=== PATIENT | male | born 1945 | race Caucasian/White ===

== ENCOUNTER → 2020-03-03 | Day surgery (SDC) | payer OTHER, MEDICARE, BC ==
[~2020-03-03] MED LIST: Lactated Ringers 1,000 ML IV SCH; Lidocaine 1% 4 ML ONE; Lidocaine 1%/Sod Bicarbonate in NS 8.4% 1 ML Syringe IDERM PRN; Propofol 200 MG/20 ML SDV ONE; Sodium Chloride 0.9% 10 ML Syringe FLUSH PRN
--- NOTE | 2020-03-03 08:59 | PCM.PREANE ---
Preanesthetic Assessment - Procedure Proposed Procedure: Screening Colonoscopy - Anesthesia/Transfusion/Family Hx Anesthesia History: Prior Anesthesia Without Reaction Family History of Anesthesia Reaction: No Transfusion History: Unknown (? 1967) - Review of Systems General: No Symptoms Pulmonary: No Symptoms Cardiovascular: No Symptoms Gastrointestinal: No Symptoms Neurological: No Symptoms Other: Reports: Neck Pain ("on left stiff") - Physical Assessment NPO Status Date: 03/02/20 NPO Status Time: 00:00 Height: 1.85 m Weight: 85.6 kg ASA Class: 2 Mental Status: Alert & Oriented x3 Airway Class: Mallampati = 1 Dentition: Reports: [place](s) Thyro-Mental Finger Breadths: 3 Mouth Opening Finger Breadths: 3 ROM/Head Extension: Full Lungs: Clear to Auscultation, Normal Respiratory Effort Cardiovascular: Regular Rate, Regular Rhythm - Allergies Allergies/Adverse Reactions: Allergies Allergy/AdvReac Type Severity Reaction Status Date / Time No Known Allergies Allergy Verified 03/02/20 14:09 - Blood Blood Available: No Product(s) Available: None - Anesthesia Plan Pre-Op Medication Ordered: None - Acknowledgements Anesthesia Type Planned: MAC Pt an Appropriate Candidate for the Planned Anesthesia: Yes Alternatives and Risks of Anesthesia Discussed w Pt/Guardian: Yes Pt/Guardian Understands and Agrees with Anesthesia Plan: Yes PreAnesthesia Questionnaire HEENT History: Reports: Allergic Rhinitis, Hard of Hearing, Otitis Media, Other (See Below) Other HEENT History: tinnitis Cardiovascular History: Reports: Hypertension, Other (See Below) Other Cardiovascular History: bradycardia, abnormal heart sounds Respiratory History: Reports: Other (See Below) Other Respiratory History: bronchitis, cough Gastrointestinal History: Reports: GERD Genitourinary History: Reports: Prostate Disorder [employer] EX[employer]IVE History: Reports: None Musculoskeletal History: Reports: Back Pain, Chronic, Gout Neurological History: Reports: None Psychiatric History: Reports: None Endocrine/Metabolic History: Reports: None, Diabetes, Type II Hematologic History: Reports: None Immunologic History: Reports: None Oncologic (Cancer) History: Reports: None Dermatologic History: Reports: None - Infectious Disease History Infectious Disease History: Reports: None - Past Surgical History Head Surgeries/Procedures: Reports: None Cardiovascular Surgical History: Reports: None Respiratory Surgical History: Reports: None Female Surgical History: Reports: None Male Surgical History: Reports: None Endocrine Surgical History: Reports: None Neurological Surgical History: Reports: None Musculoskeletal Surgical History: Reports: Knee Replacement, Shoulder Surgery Oncologic Surgical History: Reports: None Dermatological Surgical History: Reports: None - SUBSTANCE USE Tobacco Use Status *Q: Never Tobacco User Tobacco Use Within Last Twelve Months: No Second Hand Smoke Exposure: No Days Per Week of Alcohol Use: 0 Number of Drinks Per Day: 0 Total Drinks Per Week: 0 Recreational Drug Use History: No - HOME MEDS Home Medications: Home Meds Cholecalciferol (Vitamin D3) [Vitamin D3] 1,000 mg PO DAILY 12/28/17 [History] Fish Oil/[place]-3 Fatty Acids [Fish Oil 1,000 MG] 1,000 mg PO DAILY 12/28/17 [History] Ibuprofen [Motrin] 600 mg PO DAILY 12/28/17 [History] Multivitamin [Multivitamins] 1 tab PO DAILY 12/28/17 [History] Omeprazole Magnesium [Prilosec Otc] 20 mg PO DAILY 12/28/17 [History] Tamsulosin HCl 0.4 mg PO DAILY 12/28/17 [History] metFORMIN [Glucophage XR] 500 mg PO BID 12/28/17 [History] Allopurinol [Zyloprim] 150 mg PO DAILY 03/02/20 [History] Finasteride [Proscar] 5 mg PO DAILY 03/02/20 [History] Saw [place] Fruit [Saw [place]] 1,350 mg PO DAILY 03/02/20 [History] amLODIPine [Norvasc] 5 mg PO DAILY 03/02/20 [History] - CURRENT (IN HOUSE) MEDS Current Meds: Current Medications Lactated Ringer's (Ringers, Lactated) 1,000 mls @ 125 mls/hr IV ASDIRECTED VANDANA Stop: 03/03/20 23:00 Lidocaine/Sodium Bicarbonate (Buffered Lidocaine 1% In Ns 8.4%) 0.25 ml IDERM ONETIME PRN PRN Reason: Prior to IV Start Stop: 03/03/20 18:00 Sodium Chloride (Saline Flush) 10 ml FLUSH ASDIRECTED PRN PRN Reason: Keep Vein Open Stop: 03/03/20 18:00
--- NOTE | 2020-03-03 10:19 | PCM48HPAN ---
Post Anesthesia Note - EVALUATION WITHIN 48HRS OF ANESTHETIC Vital Signs in Normal Range: Yes Patient Participated in Evaluation: Yes Respiratory Function Stable: Yes Airway Patent: Yes Cardiovascular Function Stable: Yes Hydration Status Stable: Yes Pain Control Satisfactory: Yes Nausea and Vomiting Control Satisfactory: Yes Mental Status Recovered: Yes Vital Signs: Last Vital Signs Temp 36.4 C 03/03/20 08:45 Pulse 80 03/03/20 08:45 Resp 18 03/03/20 08:45 BP 140/83 03/03/20 08:45 Pulse Ox 93 L 03/03/20 08:45
--- NOTE | 2020-03-03 10:47 | PCM.PRNOTE ---
- Free Text/Narrative Note: Date: 03/03/2020 Procedure: screening colonoscopy Endoscopist: See Deshpande MD Findings: good prep. Small subcentimeter inflamed polyp near hepatic flexure. Hemorrhoids. Detailed Report: The patient was taken to the endoscopy suite and placed in left lateral decubitus position. Timeout was performed, and monitored anesthesia care was initiated. Inspection of the anus revealed no gross abnormality. Digital rectal exam was unremarkable, the prostate felt somewhat enlarged but otherwise normal. The colonoscope was inserted and advanced all the way to the cecum. The appendiceal orifice and ileocecal valve were visualized. Prep was good. The scope was slowly withdrawn and mucosal surfaces carefully inspected. At what appeared to be the hepatic flexure, there was a small subcentimeter benign- appearing polyp with surrounding inflamed mucosa, which I suspect is related to trauma from the scope at this turn. Biopsy forceps were used to remove the polyp, and the base and surrounding tissue were fulgurated. No additional polyps were identified. On retroflexion of the scope within the rectum, internal hemorrhoidal disease was appreciated. Air was suctioned from the distal colon and rectum prior to withdrawal of the scope. The patient tolerated the procedure well.
== END | disposition home or self-care (01) ==
LOC: JD.SDS 08:10
PROVIDERS: ATTEND Surgery
DX: Z12.11 Encounter for screening for malignant neoplasm of colon (principal); K51.40 Inflammatory polyps of colon without complications; K64.8 Other hemorrhoids; I10 Essential (primary) hypertension; N40.0 Benign prostatic hyperplasia without lower urinary tract symptoms; E11.9 Type 2 diabetes mellitus without complications; Z91.02 Food additives allergy status; Z79.899 Other long term (current) drug therapy; Z98.890 Other specified postprocedural states; Z87.891 Personal history of nicotine dependence; Z79.84 Long term (current) use of oral hypoglycemic drugs
CPT/HCPCS: 45380; 82962; J2001; J2704; J7120; 00812; 88305

== ENCOUNTER 2020-11-15 14:24 | Inpatient (IN) | payer OTHER, MEDICARE, BC ==
[2020-11-15] MEDS ORDERED: Sodium Chloride 0.9% 10 ML Syringe FLUSH PRN (15:18)
--- NOTE | 2020-11-15 15:58 | CR ---
Chest: Portable view of the chest was obtained. Comparison: Prior chest x-ray of 12/27/17. Heart size is within normal limits. Mild tortuosity of the thoracic aorta is seen. Slight parenchymal density is noted along the lateral left side of the chest. Right lung is felt to be fairly clear. Bony structure shows nothing acute. Impression: 1. Slight patchy density along the lateral left side of the chest possibly due to mild COVID pneumonia. 2. No other acute abnormality is seen. Diagnostic code #3
--- NOTE | 2020-11-15 16:44 | EDM.PDOC ---
ED HPI GENERAL MEDICAL PROBLEM - General Chief Complaint: Respiratory Problem Stated Complaint: COVID+ Time Seen by Provider: 11/15/20 15:18 Source of Information: Reports: Patient, RN Notes Reviewed History Limitations: Reports: No Limitations - History of Present Illness INITIAL COMMENTS - FREE TEXT/NARRATIVE: Patient is a 75-year-old male presenting to the emergency department with complaints of worsening of Covid symptoms. Reported he began feeling ill on Saturday of last week which would put him approximately 8 days into his illness. He reports cough, body aches, and fevers. He has had some nausea and vomiting but denies any diarrhea. He was seen by his primary care provider in the [facility] yesterday and had blood work completed. He was found to have a low white blood cells and elevated liver enzymes but blood work was otherwise normal. Reports his oxygen saturations were in the low 90s. He comes to the ER today reporting low oxygen saturations at home. On arrival to ER, he was 84% on room air. He denies any chest pain but does complain of shortness of breath. Denies any underlying chronic medical conditions. He has been taken Tylenol and ibupr ofen for his fevers and discomfort. Last dose of Tylenol was around 5 AM this morning. Last dose of ibuprofen, 200 mg, was at 8 AM this morning. He is complaining of generalized body aches and low back pain at this time. He was not vaccinated for Covid Generalized Pain Score (Numeric/FACES): 7 - Related Data Allergies Allergy/AdvReac Type Severity Reaction Status Date / Time No Known Allergies Allergy Verified 11/15/20 15:02 Home Meds: Home Meds Cholecalciferol (Vitamin D3) [Vitamin D3] 1,000 mg PO DAILY 12/28/17 [History] Fish Oil/[place]-3 Fatty Acids [Fish Oil 1,000 MG] 1,000 mg PO DAILY 12/28/17 [History] Ibuprofen [Motrin] 600 mg PO TID 12/28/17 [History] Multivitamin [Multivitamins] 1 tab PO DAILY 12/28/17 [History] Omeprazole Magnesium [Prilosec Otc] 20 mg PO DAILY 12/28/17 [History] Tamsulosin HCl 0.4 mg PO DAILY 12/28/17 [History] Allopurinol [Zyloprim] 150 mg PO DAILY 03/02/20 [History] Finasteride [Proscar] 5 mg PO DAILY 03/02/20 [History] amLODIPine [Norvasc] 5 mg PO DAILY 03/02/20 [History] Chondroitin/Glucosamine [Glucosamine-Chondroitin] 1 cap PO DAILY 11/16/20 [History] Propylene Glycol/PEG 400/Pf [Systane Hydration Pf 0.4-0.3%] 2 drop EYEBOTH ASDIRECTED PRN 11/16/20 [History] metFORMIN HCl [Metformin HCl] 500 mg PO BID 11/16/20 [History] Past Medical History HEENT History: Reports: Allergic Rhinitis, Hard of Hearing, Otitis Media, Other (See Below) Other HEENT History: tinnitis Cardiovascular History: Reports: Hypertension Other Cardiovascular History: bradycardia, abnormal heart sounds Respiratory History: Reports: Other (See Below) Other Respiratory History: bronchitis, cough Gastrointestinal History: Reports: GERD Genitourinary History: Reports: Prostate Disorder [employer] History: Reports: None Musculoskeletal History: Reports: Gout Neurological History: Reports: None Psychiatric History: Reports: None Endocrine/Metabolic History: Reports: Diabetes, Type II Hematologic History: Reports: None Immunologic History: Reports: None Oncologic (Cancer) History: Reports: None Dermatologic History: Reports: None - Infectious Disease History Infectious Disease History: Reports: Novel Coronavirus - Past Surgical History Musculoskeletal Surgical History: Reports: Shoulder Surgery Social & Family History - Tobacco Use Tobacco Use Status *Q: Never Tobacco User - Caffeine Use Caffeine Use: Reports: None - Recreational Drug Use Recreational Drug Use: No ED ROS GENERAL - Review of Systems Review Of Systems: Comprehensive ROS is negative, except as noted in HPI. ED EXAM, GENERAL - Physical Exam Exam: See Below Exam Limited By: No Limitations General Appearance: Alert, WD/WN, No Apparent Distress Respiratory/Chest: No Respiratory Distress, No Accessory Muscle Use, Chest Non- Tender, Other (Faint crackles to bilateral bases.) Cardiovascular: Normal Peripheral Pulses, Regular Rate, Rhythm, No Edema, No Gallop, No JVD, No Murmur, No Rub GI/Abdominal: Normal Bowel Sounds, Soft, Non-Tender, No Organomegaly, No Distention, No Abnormal Bruit, No Mass Neurological: Alert, Oriented, CN II-XII Intact, Normal Cognition, Normal Gait, Normal Reflexes, No Motor/Sensory Deficits Psychiatric: Normal Affect, Normal Mood Skin Exam: Warm, Dry, Intact, Normal Color, No Rash #1 Interpretation EKG Date: 11/15/20 Time: 15:40 Rhythm: NSR (76) Rate (Beats/Min): 76 [place]: Normal P-Wave: Present QRS: Normal ST-T: Normal QT: Normal EKG Interpretation Comments: frequent PACs Q wave lead III no ST changes EKG interpreted by Dr. Izaiah MD Course - Vital Signs Last Recorded V/S: Last Vital Signs Temp 97.7 F 11/16/20 16:56 Pulse 71 11/16/20 16:56 Resp 18 11/16/20 18:02 BP 129/78 11/16/20 16:56 Pulse Ox 91 L 11/16/20 16:56 - Orders/Labs/Meds Orders: Medication Orders Acetaminophen (Acetaminophen 325 Mg Tab) 650 mg PO Q4H PRN PRN Reason: Pain (Mild 1-3)/fever Last Admin: 11/16/20 08:53 Dose: 650 mg Documented by: Admin: 11/15/20 20:23 Dose: 650 mg Documented by: BILL Albuterol (Albuterol 6.7 Gm Inhaler) 0 gm INH Q2H PRN PRN Reason: SOB/Wheezing Albuterol/Ipratropium (Albuterol/Ipratropium 3.0-0.5 Mg/3 Ml Neb Soln) 3 ml NEB QIDRT PRN PRN Reason: Shortness Of Breath/wheezing Allopurinol (Allopurinol 300 Mg Tab) 150 mg PO DAILY [facility] Last Admin: 11/16/20 08:52 Dose: 150 mg Documented by: RONNA Amlodipine Besylate (Amlodipine 5 Mg Tab) 5 mg PO DAILY [facility] Last Admin: 11/16/20 08:50 Dose: 5 mg Documented by: RONNA Cholecalciferol (Cholecalciferol (Vitamin D3) 25 Mcg Tab) 25 mcg PO DAILY [facility] Last Admin: 11/16/20 08:54 Dose: 25 mcg Documented by: RONNA Dexamethasone (Dexamethasone 4 Mg Tab) 6 mg PO DAILY [facility] Stop: 11/24/20 09:01 Last Admin: 11/16/20 08:49 Dose: 6 mg Documented by: RONNA Docusate Sodium (Docusate Sodium 100 Mg Cap) 100 mg PO Q12H PRN PRN Reason: Constipation Famotidine (Famotidine 20 Mg Tab) 20 mg PO DAILY [facility] Last Admin: 11/16/20 08:54 Dose: 20 mg Documented by: RONNA Finasteride (Finasteride 5 Mg Tab) 5 mg PO DAILY [facility] Last Admin: 11/16/20 08:54 Dose: 5 mg Documented by: RONNA Guaifenesin (Guaifenesin 600 Mg Tab.Er) 600 mg PO BID [facility] Last Admin: 11/16/20 08:52 Dose: 600 mg Documented by: Admin: 11/15/20 20:21 Dose: 600 mg Documented by: BILL Heparin Sodium (Porcine) (Heparin Sodium 5,000 Units/Ml Vial) 7,500 units SUBCUT Q8H [facility] Last Admin: 11/16/20 17:19 Dose: 7,500 units Documented by: Admin: 11/16/20 08:54 Dose: 7,500 units Documented by: Admin: 11/16/20 00:44 Dose: 7,500 units Documented by: Admin: 11/15/20 19:15 Dose: 7,500 units Documented by: KULWINDER Hydralazine HCl (Hydralazine 20 Mg/Ml Sdv) 10 mg IVPUSH Q4H PRN PRN Reason: Hypertension Remdesivir 100 mg/ Sodium (Chloride) 100 mls @ 100 mls/hr IV Q24H [facility] Stop: 11/19/20 21:59 Insulin Human Lispro (Insulin Lispro 100 Unit/Ml 10 Ml Vial) 0 unit SUBCUT QIDACANDBED [facility]; Protocol Last Admin: 11/16/20 17:20 Dose: 4 unit Documented by: Admin: 11/16/20 11:50 Dose: 2 unit Documented by: Admin: 11/16/20 08:48 Dose: 1 unit Documented by: Admin: 11/15/20 21:14 Dose: Not Given Documented by: BILL Ondansetron HCl (Ondansetron 4 Mg Tab.Dis) 4 mg PO Q4H PRN PRN Reason: nausea, able to take PO Sodium Chloride (Sodium Chloride 0.9% 10 Ml Syringe) 10 ml FLUSH ASDIRECTED PRN PRN Reason: Keep Vein Open Last Admin: 11/15/20 17:05 Dose: 10 ml Documented by: PAUL Tamsulosin HCl (Tamsulosin 0.4 Mg Cap.Er) 0.4 mg PO DAILY [facility] Last Admin: 11/16/20 08:52 Dose: 0.4 mg Documented by: RONNA Temazepam (Temazepam 7.5 Mg Cap) 7.5 mg PO BEDTIME PRN PRN Reason: Sleep Labs: Laboratory Tests 11/15/20 11/15/20 11/15/20 Range/Units 15:55 15:55 15:55 WBC 2.66 L (4.23-9.07) K/mm3 RBC 5.11 (4.63-6.08) M/mm3 Hgb 15.1 (13.7-17.5) gm/dl Hct 44.2 (40.1-51.0) % MCV 86.5 (79.0-92.2) fl MCH 29.5 (25.7-32.2) pg MCHC 34.2 (32.2-35.5) g/dl RDW Std Deviation 37.6 (35.1-43.9) fL Plt Count 101 L (163-337) K/mm3 MPV 10.2 (9.4-12.3) fl Neut % (Auto) 66.9 (34.0-67.9) % Lymph % (Auto) 24.1 (21.8-53.1) % [place] % (Auto) 8.6 (5.3-12.2) % Eos % (Auto) 0 L (0.8-7.0) Baso % (Auto) 0.4 (0.1-1.2) % Neut # (Auto) 1.78 (1.78-5.38) K/mm3 Lymph # (Auto) 0.64 L (1.32-3.57) K/mm3 [place] # (Auto) 0.23 L (0.30-0.82) K/mm3 Eos # (Auto) 0.00 L (0.04-0.54) K/mm3 Baso # (Auto) 0.01 (0.01-0.08) K/mm3 D-Dimer, Quantitative 0.61 H (0.19-0.50) mg/L Sodium 137 (136-145) mEq/L Potassium 3.9 (3.5-5.1) mEq/L Chloride 98 (98-107) mEq/L Carbon Dioxide 31 (21-32) mEq/L Anion Gap 11.9 (5-15) BUN 29 H (7-18) mg/dL Creatinine 1.1 (0.7-1.3) mg/dL Est Cr Clr Drug Dosing 64.57 mL/min Estimated GFR (MDRD) > 60 (>60) mL/min BUN/Creatinine Ratio 26.4 H (14-18) Glucose 110 H (70-99) mg/dL Calcium 8.6 (8.5-10.1) mg/dL Total Bilirubin 0.7 (0.2-1.0) mg/dL AST 71 H (15-37) U/L ALT 65 H (16-63) U/L Alkaline Phosphatase 39 L (46-116) U/L Troponin I < 0.017 (0.00-0.056) ng/mL C-Reactive Protein 5.1 H* (<1.0) mg/dL NT-Pro-B Natriuret Pep (0-450) pg/mL Total Protein 7.0 (6.4-8.2) g/dl Albumin 3.3 L (3.4-5.0) g/dl Globulin 3.7 gm/dL Albumin/Globulin Ratio 0.9 L (1-2) Procalcitonin ng/mL 11/15/20 11/15/20 Range/Units 15:55 15:55 WBC (4.23-9.07) K/mm3 RBC (4.63-6.08) M/mm3 Hgb (13.7-17.5) gm/dl Hct (40.1-51.0) % MCV (79.0-92.2) fl MCH (25.7-32.2) pg MCHC (32.2-35.5) g/dl RDW Std Deviation (35.1-43.9) fL Plt Count (163-337) K/mm3 MPV (9.4-12.3) fl Neut % (Auto) (34.0-67.9) % Lymph % (Auto) (21.8-53.1) % [place] % (Auto) (5.3-12.2) % Eos % (Auto) (0.8-7.0) Baso % (Auto) (0.1-1.2) % Neut # (Auto) (1.78-5.38) K/mm3 Lymph # (Auto) (1.32-3.57) K/mm3 [place] # (Auto) (0.30-0.82) K/mm3 Eos # (Auto) (0.04-0.54) K/mm3 Baso # (Auto) (0.01-0.08) K/mm3 D-Dimer, Quantitative (0.19-0.50) mg/L Sodium (136-145) mEq/L Potassium (3.5-5.1) mEq/L Chloride (98-107) mEq/L Carbon Dioxide (21-32) mEq/L Anion Gap (5-15) BUN (7-18) mg/dL Creatinine (0.7-1.3) mg/dL Est Cr Clr Drug Dosing mL/min Estimated GFR (MDRD) (>60) mL/min BUN/Creatinine Ratio (14-18) Glucose (70-99) mg/dL Calcium (8.5-10.1) mg/dL Total Bilirubin (0.2-1.0) mg/dL AST (15-37) U/L ALT (16-63) U/L Alkaline Phosphatase (46-116) U/L Troponin I (0.00-0.056) ng/mL C-Reactive Protein (<1.0) mg/dL NT-Pro-B Natriuret Pep 27 (0-450) pg/mL Total Protein (6.4-8.2) g/dl Albumin (3.4-5.0) g/dl Globulin gm/dL Albumin/Globulin Ratio (1-2) Procalcitonin 0.19 H ng/mL Meds: Medications Generic Name Dose Route Start Last Admin Trade Name Freq PRN Reason Stop Dose Admin Acetaminophen 650 mg 11/15/20 17:17 11/16/20 08:53 Acetaminophen 325 Mg Tab PO 650 mg Q4H PRN Administration Pain (Mild 1-3)/fever Albuterol 0 gm 11/16/20 11:25 Albuterol 6.7 Gm Inhaler INH Q2H PRN SOB/Wheezing Albuterol/Ipratropium 3 ml 11/15/20 17:17 Albuterol/Ipratropium 3.0-0.5 Mg/3 Ml Neb Soln NEB QIDRT PRN Shortness Of Breath/wheezing Allopurinol 150 mg 11/16/20 09:00 11/16/20 08:52 Allopurinol 300 Mg Tab PO 150 mg DAILY VANDANA Administration Amlodipine Besylate 5 mg 11/16/20 09:00 11/16/20 08:50 Amlodipine 5 Mg Tab PO 5 mg DAILY VANDANA Administration Cholecalciferol 25 mcg 11/16/20 09:00 11/16/20 08:54 Cholecalciferol (Vitamin D3) 25 Mcg Tab PO 25 mcg DAILY VANDANA Administration Dexamethasone 6 mg 11/16/20 09:00 11/16/20 08:49 Dexamethasone 4 Mg Tab PO 11/24/20 09:01 6 mg DAILY [facility] Administration Docusate Sodium 100 mg 11/15/20 17:17 Docusate Sodium 100 Mg Cap PO Q12H PRN Constipation Famotidine 20 mg 11/16/20 09:00 11/16/20 08:54 Famotidine 20 Mg Tab PO 20 mg DAILY VANDANA Administration Finasteride 5 mg 11/16/20 09:00 11/16/20 08:54 Finasteride 5 Mg Tab PO 5 mg DAILY [facility] Administration Guaifenesin 600 mg 11/15/20 21:00 11/16/20 08:52 Guaifenesin 600 Mg Tab.Er PO 600 mg BID [facility] Administration Heparin Sodium (Porcine) 7,500 units 11/15/20 17:30 11/16/20 17:19 Heparin Sodium 5,000 Units/Ml Vial SUBCUT 7,500 units Q8H [facility] Administration Hydralazine HCl 10 mg 11/15/20 17:34 Hydralazine 20 Mg/Ml Sdv IVPUSH Q4H PRN Hypertension Remdesivir 100 mg/ Sodium 100 mls @ 100 mls/hr 11/16/20 21:00 Chloride IV 11/19/20 21:59 Q24H [facility] Insulin Human Lispro 0 unit 11/15/20 22:00 11/16/20 17:20 Insulin Lispro 100 Unit/Ml 10 Ml Vial SUBCUT 4 unit QIDACANDBED [facility] Administration Protocol Ondansetron HCl 4 mg 11/15/20 17:17 Ondansetron 4 Mg Tab.Dis PO Q4H PRN nausea, able to take PO Sodium Chloride 10 ml 11/15/20 15:18 11/15/20 17:05 Sodium Chloride 0.9% 10 Ml Syringe FLUSH 10 ml ASDIRECTED PRN Administration Keep Vein Open Tamsulosin HCl 0.4 mg 11/16/20 09:00 11/16/20 08:52 Tamsulosin 0.4 Mg Cap.Er PO 0.4 mg DAILY VANDANA Administration Temazepam 7.5 mg 11/15/20 17:17 Temazepam 7.5 Mg Cap PO BEDTIME PRN Sleep Discontinued Medications Generic Name Dose Route Start Last Admin Trade Name Freq PRN Reason Stop Dose Admin Dexamethasone 6 mg 11/15/20 16:46 11/15/20 17:06 Dexamethasone 4 Mg Tab PO 11/15/20 16:47 6 mg ONETIME ONE Administration Dexamethasone 6 mg 11/16/20 09:00 Dexamethasone 10 Mg/Ml Sdv IVPUSH 11/25/20 09:01 DAILY VANDANA Enoxaparin Sodium 40 mg 11/16/20 11:30 Enoxaparin 40 Mg/0.4 Ml Syringe SUBCUT DAILY VANDANA Remdesivir 200 mg/ Sodium 250 mls @ 250 mls/hr 11/15/20 17:17 11/15/20 20:21 Chloride IV 11/15/20 17:18 250 mls/hr ONETIME ONE Administration Remdesivir 100 mg/ Sodium 100 mls @ 100 mls/hr 11/17/20 17:30 Chloride IV 11/20/20 18:29 Q24H VANDANA Remdesivir 200 mg/ Sodium 250 mls @ 250 mls/hr 11/15/20 21:00 11/15/20 20:38 Chloride IV 11/15/20 21:59 Not Given ONETIME ONE Ketorolac Tromethamine 30 mg 11/15/20 16:47 11/15/20 17:06 Ketorolac 30 Mg/Ml Sdv IVPUSH 11/15/20 16:48 30 mg ONETIME ONE Administration Metformin HCl 500 mg 11/15/20 21:00 11/16/20 08:52 Metformin 500 Mg Tab PO 500 mg BID VANDANA Administration - Re-Assessments/Exams Free Text/Narrative Re-Assessment/Exam: Patient is a 75-year-old male presenting to the emergency department with complaints of worsening Covid symptoms. He is on approximately day 8 of his illness. They have been monitoring his oxygen at home and his oxygen saturations were found to be low. He complains of body aches, low back pain, cough, shortness of breath, and vomiting. He has not received any form of treatment thus far. On exam, he does have fine crackles to bilateral bases. Exam is otherwise unremarkable. Oxygen saturation on arrival to ER was 84% on room air. He is currently on 3 L of oxygen saturating in the mid 80s. I have ordered blood work, EKG, chest x-ray. He will be given dexamethasone 6 mg p.o. as well as Toradol 30 mg IV. 11/15/20 17:06 Hematology significant for WBC low at 2.66. D-dimer elevated 0.61, however when converted for age this is normal. BUN 29, AST 71, ALT 65, alkaline phosphatase 39, CRP 5.1. Troponin is undetectably low. EKG shows no evidence of acute ischemia. Chest x-ray shows mild Covid pneumonia. Patient is saturating in the mid to upper 90s on 3 L of oxygen by nasal cannula. Case was discussed with hospitalist, Dr. Singh. She has accepted the patient for admission. Departure - Departure Time of Disposition: 17:07 Disposition: Admitted As Inpatient 65 Condition: Good Clinical Impression: Pneumonia due to COVID-19 virus, Hypoxia - Discharge Information Sepsis Event Note (ED) - Evaluation Sepsis Screening Result: No Definite Risk
[2020-11-15] MEDS ORDERED: Dexamethasone 4 MG Tab PO ONE (16:46)
[2020-11-15] MEDS ORDERED: Ketorolac 30 MG/ML SDV IVPUSH ONE (16:47)
[2020-11-15] MEDS ORDERED: REMDESIVIR 200 MG in Sodium Chloride 0.9% 250 ML IV ONE ×2 (17:17→21:00)
[2020-11-15] MEDS ORDERED: Temazepam 7.5 MG Cap PO PRN (17:17)
[2020-11-15] MEDS ORDERED: Ondansetron 4 MG Tab.DIS PO PRN (17:17)
[2020-11-15] MEDS ORDERED: Docusate Sodium 100 MG Cap PO PRN (17:17)
[2020-11-15] MEDS ORDERED: Albuterol/Ipratropium 3.0-0.5 MG/3 ML Neb Soln NEB PRN (17:17)
--- NOTE | 2020-11-15 17:30 | PCM.HP.2 ---
H&P History of Present Illness - General Date of Service: 11/15/20 Admit Problem/Dx: Admission Diagnosis/Problem Admission Diagnosis/Problem covid Pneumonia Source of Information: Patient History Limitations: Reports: No Limitations - History of Present Illness Onset of Symptoms: Reports: Gradual Symptom Onset Date: 11/08/20 Duration of Symptoms: Reports: Day(s): Location: Reports: Chest Quality: Reports: Ache Improves with: Reports: None Worsens with: Reports: None Context: Reports: Sick Contact, Activity/Exercise, Exertion Associated Symptoms: Reports: Cough, Fever/Chills, Nausea/Vomiting, Shortness of Breath, Weakness Generalized Pain Score (Numeric/FACES): 7 - Related Data Allergies/Adverse Reactions: Allergies Allergy/AdvReac Type Severity Reaction Status Date / Time No Known Allergies Allergy Verified 11/15/20 15:02 Home Medications: Home Meds Cholecalciferol (Vitamin D3) [Vitamin D3] 1,000 mg PO DAILY 12/28/17 [History] Fish Oil/[place]-3 Fatty Acids [Fish Oil 1,000 MG] 1,000 mg PO DAILY 12/28/17 [History] Ibuprofen [Motrin] 600 mg PO DAILY 12/28/17 [History] Multivitamin [Multivitamins] 1 tab PO DAILY 12/28/17 [History] Omeprazole Magnesium [Prilosec Otc] 20 mg PO DAILY 12/28/17 [History] Tamsulosin HCl 0.4 mg PO DAILY 12/28/17 [History] metFORMIN [Glucophage XR] 500 mg PO BID 12/28/17 [History] Allopurinol [Zyloprim] 150 mg PO DAILY 03/02/20 [History] Finasteride [Proscar] 5 mg PO DAILY 03/02/20 [History] Saw [place] Fruit [Saw [place]] 1,350 mg PO DAILY 03/02/20 [History] amLODIPine [Norvasc] 5 mg PO DAILY 03/02/20 [History] Past Medical History HEENT History: Reports: Allergic Rhinitis, Hard of Hearing, Otitis Media, Other (See Below) Other HEENT History: tinnitis Cardiovascular History: Reports: Hypertension Other Cardiovascular History: bradycardia, abnormal heart sounds Respiratory History: Reports: Other (See Below) Other Respiratory History: bronchitis, cough Gastrointestinal History: Reports: GERD Genitourinary History: Reports: Prostate Disorder KEY RINGER History: Reports: None Musculoskeletal History: Reports: Gout Neurological History: Reports: None Psychiatric History: Reports: None Endocrine/Metabolic History: Reports: Diabetes, Type II Hematologic History: Reports: None Immunologic History: Reports: None Oncologic (Cancer) History: Reports: None Dermatologic History: Reports: None - Infectious Disease History Infectious Disease History: Reports: Novel Coronavirus - Past Surgical History Musculoskeletal Surgical History: Reports: Shoulder Surgery Social & Family History - Tobacco Use Tobacco Use Status *Q: Never Tobacco User - Caffeine Use Caffeine Use: Reports: None - Recreational Drug Use Recreational Drug Use: No H&P Review of Systems - Review of Systems: Review Of Systems: See Below General: Reports: Fever, Chills, Malaise, Weakness, Fatigue HEENT: Reports: No Symptoms Pulmonary: Reports: Shortness of Breath, Wheezing, Cough Cardiovascular: Reports: Dyspnea on Exertion Gastrointestinal: Reports: Nausea, Vomiting Genitourinary: Reports: No Symptoms Musculoskeletal: Reports: No Symptoms Skin: Reports: No Symptoms Psychiatric: Reports: Anxiety Neurological: Reports: No Symptoms Hematologic/Lymphatic: Reports: No Symptoms Immunologic: Reports: No Symptoms Exam - Exam Exam: See Below - Vital Signs Vital Signs: Last Vital Signs Temp 98.9 F 11/15/20 15:00 Pulse 78 11/15/20 15:00 Resp 16 11/15/20 15:00 BP 114/66 11/15/20 15:00 Pulse Ox 85 L 11/15/20 15:00 Weight: 190 lb - Exam Quality Assessment: Supplemental Oxygen General: Alert, Oriented HEENT: Hearing Intact Neck: Supple, Trachea Midline Lungs: Decreased Breath Sounds, Rales, Rhonchi Cardiovascular: Regular Rate, Regular Rhythm GI/Abdominal Exam: Normal Bowel Sounds, Soft, Non-Tender, No Organomegaly, No Distention, No Abnormal Bruit Back Exam: Normal Inspection Extremities: Normal Inspection Peripheral Pulses: 2+: Dorsalis Pedis (L), Dorsalis Pedis (R) Skin: Warm, Dry Neurological: Cranial Nerves Intact Neuro Extensive - Mental Status: Alert, Oriented x3, Memory Intact Neuro Extensive - Motor, Sensory, Reflexes: CN II-XII Intact, Normal Gait DTR: 1+: Patella (L), Patella (R), Achilles (L), Achilles (R) Psychiatric: Alert - Patient Data Lab Results Last 24 hrs: Laboratory Results - last 24 hr 11/15/20 11/15/20 11/15/20 Range/Units 15:55 15:55 15:55 WBC 2.66 L (4.23-9.07) K/mm3 RBC 5.11 (4.63-6.08) M/mm3 Hgb 15.1 (13.7-17.5) gm/dl Hct 44.2 (40.1-51.0) % MCV 86.5 (79.0-92.2) fl MCH 29.5 (25.7-32.2) pg MCHC 34.2 (32.2-35.5) g/dl RDW Std Deviation 37.6 (35.1-43.9) fL Plt Count 101 L (163-337) K/mm3 MPV 10.2 (9.4-12.3) fl Neut % (Auto) 66.9 (34.0-67.9) % Lymph % (Auto) 24.1 (21.8-53.1) % [place] % (Auto) 8.6 (5.3-12.2) % Eos % (Auto) 0 L (0.8-7.0) Baso % (Auto) 0.4 (0.1-1.2) % Neut # (Auto) 1.78 (1.78-5.38) K/mm3 Lymph # (Auto) 0.64 L (1.32-3.57) K/mm3 [place] # (Auto) 0.23 L (0.30-0.82) K/mm3 Eos # (Auto) 0.00 L (0.04-0.54) K/mm3 Baso # (Auto) 0.01 (0.01-0.08) K/mm3 D-Dimer, Quantitative 0.61 H (0.19-0.50) mg/L Sodium 137 (136-145) mEq/L Potassium 3.9 (3.5-5.1) mEq/L Chloride 98 (98-107) mEq/L Carbon Dioxide 31 (21-32) mEq/L Anion Gap 11.9 (5-15) BUN 29 H (7-18) mg/dL Creatinine 1.1 (0.7-1.3) mg/dL Est Cr Clr Drug Dosing 64.57 mL/min Estimated GFR (MDRD) > 60 (>60) mL/min BUN/Creatinine Ratio 26.4 H (14-18) Glucose 110 H (70-99) mg/dL Calcium 8.6 (8.5-10.1) mg/dL Total Bilirubin 0.7 (0.2-1.0) mg/dL AST 71 H (15-37) U/L ALT 65 H (16-63) U/L Alkaline Phosphatase 39 L (46-116) U/L Troponin I < 0.017 (0.00-0.056) ng/mL C-Reactive Protein 5.1 H* (<1.0) mg/dL NT-Pro-B Natriuret Pep (0-450) pg/mL Total Protein 7.0 (6.4-8.2) g/dl Albumin 3.3 L (3.4-5.0) g/dl Globulin 3.7 gm/dL Albumin/Globulin Ratio 0.9 L (1-2) 11/15/20 Range/Units 15:55 WBC (4.23-9.07) K/mm3 RBC (4.63-6.08) M/mm3 Hgb (13.7-17.5) gm/dl Hct (40.1-51.0) % MCV (79.0-92.2) fl MCH (25.7-32.2) pg MCHC (32.2-35.5) g/dl RDW Std Deviation (35.1-43.9) fL Plt Count (163-337) K/mm3 MPV (9.4-12.3) fl Neut % (Auto) (34.0-67.9) % Lymph % (Auto) (21.8-53.1) % [place] % (Auto) (5.3-12.2) % Eos % (Auto) (0.8-7.0) Baso % (Auto) (0.1-1.2) % Neut # (Auto) (1.78-5.38) K/mm3 Lymph # (Auto) (1.32-3.57) K/mm3 [place] # (Auto) (0.30-0.82) K/mm3 Eos # (Auto) (0.04-0.54) K/mm3 Baso # (Auto) (0.01-0.08) K/mm3 D-Dimer, Quantitative (0.19-0.50) mg/L Sodium (136-145) mEq/L Potassium (3.5-5.1) mEq/L Chloride (98-107) mEq/L Carbon Dioxide (21-32) mEq/L Anion Gap (5-15) BUN (7-18) mg/dL Creatinine (0.7-1.3) mg/dL Est Cr Clr Drug Dosing mL/min Estimated GFR (MDRD) (>60) mL/min BUN/Creatinine Ratio (14-18) Glucose (70-99) mg/dL Calcium (8.5-10.1) mg/dL Total Bilirubin (0.2-1.0) mg/dL AST (15-37) U/L ALT (16-63) U/L Alkaline Phosphatase (46-116) U/L Troponin I (0.00-0.056) ng/mL C-Reactive Protein (<1.0) mg/dL NT-Pro-B Natriuret Pep 27 (0-450) pg/mL Total Protein (6.4-8.2) g/dl Albumin (3.4-5.0) g/dl Globulin gm/dL Albumin/Globulin Ratio (1-2) Result Diagrams: 11/15/20 15:55 11/15/20 15:55 Sepsis Event Note - Evaluation Sepsis Screening Result: No Definite Risk - Focused Exam Vital Signs: Vital Signs Temp Pulse Resp BP Pulse Ox 11/15/20 15:00 98.9 F 78 16 114/66 85 L Problem List Initiated/Reviewed/Updated: Yes Orders Last 24hrs: Active Orders 24 hr Category Date Time Status Patient Status [ADT] Routine ADT 11/15/20 17:17 Ordered Bedrest Bathroom Privileges [RC] ASDIRECTED Care 11/15/20 17:17 Ordered Cardiac Monitoring [RC] . DIRECTED Care 11/15/20 17:17 Ordered Nurse Communication: Isolation [RC] ASDIRECTED Care 11/15/20 17:18 Ordered Oxygen Therapy [RC] ASDIRECTED Care 11/15/20 17:17 Ordered Peripheral IV Care [RC] . DIRECTED Care 11/15/20 15:20 Active Positioning, Patient [RC] ASDIRECTED Care 11/15/20 17:22 Ordered Pulse Oximetry [RC] CONTINUOUS Care 11/15/20 17:18 Ordered RT Aerosol Therapy [RC] ASDIRECTED Care 11/15/20 17:21 Ordered RT Incentive Spirometry [RC] ASDIRECTED Care 11/15/20 17:17 Ordered RT Incentive Spirometry [RC] ASDIRECTED Care 11/15/20 17:17 Ordered Vital Signs [RC] Q6H Care 11/15/20 17:17 Ordered OT Evaluation and Treatment [CONS] Routine Cons 11/15/20 17:21 Ordered PT Evaluation and Treatment [CONS] Routine Cons 11/15/20 17:21 Ordered Regular Diet [DIET] Diet 11/16/20 Dinner Ordered BLOOD GAS ARTERIAL [BG] Stat Lab 11/15/20 17:17 Ordered C-REACTIVE PROTEIN [CHEM] AM Lab 11/16/20 05:11 Ordered C-REACTIVE PROTEIN [CHEM] AM Lab 11/17/20 05:11 Ordered C-REACTIVE PROTEIN [CHEM] AM Lab 11/18/20 05:11 Ordered C-REACTIVE PROTEIN [CHEM] AM Lab 11/19/20 05:11 Ordered CBC WITH AUTO DIFF [HEME] AM Lab 11/16/20 05:11 Ordered CBC WITH AUTO DIFF [HEME] AM Lab 11/17/20 05:11 Ordered CBC WITH AUTO DIFF [HEME] AM Lab 11/18/20 05:11 Ordered CBC WITH AUTO DIFF [HEME] AM Lab 11/19/20 05:11 Ordered COMPREHENSIVE METABOLIC PN,CMP [CHEM] AM Lab 11/16/20 05:11 Ordered COMPREHENSIVE METABOLIC PN,CMP [CHEM] AM Lab 11/17/20 05:11 Ordered COMPREHENSIVE METABOLIC PN,CMP [CHEM] AM Lab 11/18/20 05:11 Ordered COMPREHENSIVE METABOLIC PN,CMP [CHEM] AM Lab 11/19/20 05:11 Ordered D-DIMER QUANTITATIVE [COAG] AM Lab 11/16/20 05:11 Ordered LACTIC ACID [CHEM] AM Lab 11/16/20 05:11 Ordered MAGNESIUM [CHEM] AM Lab 11/16/20 05:11 Ordered PROCALCITONIN [REF] Stat Lab 11/15/20 17:17 Ordered Acetaminophen [TylenoL] Med 11/15/20 17:17 Ordered 650 mg PO Q4H PRN Albuterol/Ipratropium [DuoNeb 3.0-0.5 MG/3 ML] Med 11/15/20 17:17 Ordered 3 ml NEB QIDRT PRN Docusate Sodium [Colace] Med 11/15/20 17:17 Ordered 100 mg PO Q12H PRN Famotidine [Pepcid] Med 11/16/20 09:00 Ordered 20 mg PO DAILY Heparin Sodium Med 11/15/20 17:30 Ordered 7,500 units SUBCUT Q8H Ondansetron [Zofran ODT] Med 11/15/20 17:17 Ordered 4 mg PO Q4H PRN Remdesivir 100 mg Med 11/16/20 17:30 Ordered Sodium Chloride 0.9% [Normal Saline] 100 ml IV Q24H Remdesivir 200 mg Med 11/15/20 17:17 Ordered Sodium Chloride 0.9% [Normal Saline] 250 ml IV ONETIME Sodium Chloride 0.9% [Saline Flush] Med 11/15/20 15:18 Active 10 ml FLUSH ASDIRECTED PRN Temazepam [Restoril] Med 11/15/20 17:17 Ordered 7.5 mg PO BEDTIME PRN dexAMETHasone [Decadron] Med 11/16/20 09:00 Ordered 6 mg IVPUSH DAILY Isolation [COMM] Routine Oth 11/15/20 17:17 Ordered Isolation [COMM] Stat Oth 11/15/20 17:17 Ordered Peripheral IV Insertion Adult [OM.PC] Stat Oth 11/15/20 15:18 Ordered RT Acapella [RESPCARE] Routine Oth 11/15/20 17:17 Ordered Resuscitation Status Routine Resus Stat 11/15/20 17:17 Ordered Medication Orders Sodium Chloride (Sodium Chloride 0.9% 10 Ml Syringe) 10 ml FLUSH ASDIRECTED PRN PRN Reason: Keep Vein Open Last Admin: 11/15/20 17:05 Dose: 10 ml Documented by: PAUL Assessment/Plan Comment:: #1. Covid pneumonia-patient is now starting to have hypoxia at 84% after 8 days of illness. The patient is continuing now with worsening symptoms of fever chills nausea vomiting malaise and fatigue. Found to have an elevated D-dimer. Hydration, left infiltrates, mild cardiac strain, and will be started on remdesivir, procalcitonin has been ordered and we will hold antibiotics at this time. We will continue with the dexamethasone that was ordered and started in the ER. We will continue with duo nebs, Mucinex, continuous pulse ox, RT therapy. #2. Diabetes-continue home dose metformin. Sliding scale insulin 3. GERD-continue famotidine 4. Gout-continue allopurinol 5. BPH-continue Proscar 6. Hard of hearing 7. History of hypertension-as needed hydralazine Time 80 minute Anticipate 2 midnight stay but less than 96 hours. - Mortality Measure Prognosis:: Good
[2020-11-15] MEDS ORDERED: hydrALAZINE 20 MG/ML SDV IVPUSH PRN (17:34)
[2020-11-15] MEDS: Heparin Sodium 5,000 Units/ML Vial SUBCUT SCH (19:15)
[2020-11-15] MEDS: guaiFENesin 600 MG Tab.ER PO SCH (20:21)
[2020-11-15] MEDS: metFORMIN 500 MG Tab PO SCH (20:21)
[2020-11-15] MEDS: Acetaminophen 325 MG Tab PO PRN (20:23)
[2020-11-15] MEDS: Insulin Lispro 100 UNIT/ML 10 ML Vial SUBCUT SCH (21:14)
[2020-11-16] MEDS: Heparin Sodium 5,000 Units/ML Vial SUBCUT SCH ×3 (00:44→17:19)
[2020-11-16] MEDS: Insulin Lispro 100 UNIT/ML 10 ML Vial SUBCUT SCH ×4 (08:48→21:19)
[2020-11-16] MEDS: Dexamethasone 4 MG Tab PO SCH (08:49)
[2020-11-16] MEDS: amLODIPine 5 MG Tab PO SCH (08:50)
[2020-11-16] MEDS: Allopurinol 300 MG Tab PO SCH (08:52)
[2020-11-16] MEDS: Tamsulosin 0.4 MG Cap.ER PO SCH (08:52)
[2020-11-16] MEDS: guaiFENesin 600 MG Tab.ER PO SCH ×2 (08:52→21:04)
[2020-11-16] MEDS: metFORMIN 500 MG Tab PO SCH (08:52)
[2020-11-16] MEDS: Acetaminophen 325 MG Tab PO PRN ×2 (08:53→21:04)
[2020-11-16] MEDS: Finasteride 5 MG Tab PO SCH (08:54)
[2020-11-16] MEDS: Cholecalciferol (Vitamin D3) 25 MCG Tab PO SCH (08:54)
[2020-11-16] MEDS: Famotidine 20 MG Tab PO SCH (08:54)
[2020-11-16] MEDS ORDERED: Dexamethasone 10 MG/ML SDV IVPUSH SCH (09:00)
--- NOTE | 2020-11-16 09:44 | PCM.PN ---
<Darryl Torres - Last Filed: 11/16/20 11:24> - General Info Date of Service: 11/16/20 Admission Dx/Problem (Free Text): Admission Diagnosis/Problem Admission Diagnosis/Problem covid Pneumonia Functional Status: Reports: Pain Controlled, Tolerating Diet, Ambulating, Urinating, Incentive Spirometry. Denies: New Symptoms - Review of Systems General: Reports: No Symptoms, Weakness, Fatigue. Denies: Fever, Malaise, Chills HEENT: Reports: Other (Baseline hard of hearing ). Denies: Headaches, Sore Throat Pulmonary: Reports: Shortness of Breath, Cough, Sputum. Denies: Pleuritic Chest Pain, Wheezing Cardiovascular: Reports: Dyspnea on Exertion. Denies: Chest Pain, Palpitations, Edema Gastrointestinal: Reports: Abdominal Pain (mild LUQ), Diarrhea. Denies: Constipation, Decreased Appetite, Nausea, Vomiting Genitourinary: Reports: No Symptoms. Denies: Pain Musculoskeletal: Reports: No Symptoms Skin: Reports: No Symptoms. Denies: Cyanosis Neurological: Reports: No Symptoms. Denies: Confusion, Dizziness, Headache, Numbness, Pre-Existing Deficit, Seizure, Syncope, Tingling, Difficulty Walking Psychiatric: Reports: No Symptoms - Patient Data Vitals - Most Recent: Last Vital Signs Temp 97.5 F 11/16/20 08:50 Pulse 73 11/16/20 08:51 Resp 22 H 11/16/20 09:00 BP 93/61 11/16/20 08:50 Pulse Ox 88 L 11/16/20 08:51 Weight - Most Recent: 186 lb 11.2 oz I&O - Last 24 Hours: Intake & Output 11/15/20 11/16/20 11/16/20 22:59 06:59 14:59 Intake Total 850 Balance 850 Lab Results Last 24 Hours: Laboratory Results - last 24 hr 11/15/20 11/15/20 11/15/20 Range/Units 15:55 15:55 15:55 WBC 2.66 L (4.23-9.07) K/mm3 RBC 5.11 (4.63-6.08) M/mm3 Hgb 15.1 (13.7-17.5) gm/dl Hct 44.2 (40.1-51.0) % MCV 86.5 (79.0-92.2) fl MCH 29.5 (25.7-32.2) pg MCHC 34.2 (32.2-35.5) g/dl RDW Std Deviation 37.6 (35.1-43.9) fL Plt Count 101 L (163-337) K/mm3 MPV 10.2 (9.4-12.3) fl Neut % (Auto) 66.9 (34.0-67.9) % Lymph % (Auto) 24.1 (21.8-53.1) % [place] % (Auto) 8.6 (5.3-12.2) % Eos % (Auto) 0 L (0.8-7.0) Baso % (Auto) 0.4 (0.1-1.2) % Neut # (Auto) 1.78 (1.78-5.38) K/mm3 Lymph # (Auto) 0.64 L (1.32-3.57) K/mm3 [place] # (Auto) 0.23 L (0.30-0.82) K/mm3 Eos # (Auto) 0.00 L (0.04-0.54) K/mm3 Baso # (Auto) 0.01 (0.01-0.08) K/mm3 Manual Slide Review D-Dimer, Quantitative 0.61 H (0.19-0.50) mg/L Puncture Site ABG pH (7.35-7.45) ABG pCO2 (35.0-45.0) mmHg ABG pO2 (80.0-100.0) mmHg ABG HCO3 (22.0-26.0) meq/L ABG O2 Saturation (96.0-97.0) % ABG Base Excess (-2-2.0) Ramu Test O2 Delivery Device Oxygen Flow Rate Sodium 137 (136-145) mEq/L Potassium 3.9 (3.5-5.1) mEq/L Chloride 98 (98-107) mEq/L Carbon Dioxide 31 (21-32) mEq/L Anion Gap 11.9 (5-15) BUN 29 H (7-18) mg/dL Creatinine 1.1 (0.7-1.3) mg/dL Est Cr Clr Drug Dosing 64.57 mL/min Estimated GFR (MDRD) > 60 (>60) mL/min BUN/Creatinine Ratio 26.4 H (14-18) Glucose 110 H (70-99) mg/dL POC Glucose (70-99) mg/dL Lactic Acid (0.4-2.0) mmol/L Calcium 8.6 (8.5-10.1) mg/dL Magnesium (1.8-2.4) mg/dL Total Bilirubin 0.7 (0.2-1.0) mg/dL AST 71 H (15-37) U/L ALT 65 H (16-63) U/L Alkaline Phosphatase 39 L (46-116) U/L Troponin I < 0.017 (0.00-0.056) ng/mL C-Reactive Protein 5.1 H* (<1.0) mg/dL NT-Pro-B Natriuret Pep (0-450) pg/mL Total Protein 7.0 (6.4-8.2) g/dl Albumin 3.3 L (3.4-5.0) g/dl Globulin 3.7 gm/dL Albumin/Globulin Ratio 0.9 L (1-2) 11/15/20 11/15/20 11/15/20 Range/Units 15:55 17:17 20:11 WBC (4.23-9.07) K/mm3 RBC (4.63-6.08) M/mm3 Hgb (13.7-17.5) gm/dl Hct (40.1-51.0) % MCV (79.0-92.2) fl MCH (25.7-32.2) pg MCHC (32.2-35.5) g/dl RDW Std Deviation (35.1-43.9) fL Plt Count (163-337) K/mm3 MPV (9.4-12.3) fl Neut % (Auto) (34.0-67.9) % Lymph % (Auto) (21.8-53.1) % [place] % (Auto) (5.3-12.2) % Eos % (Auto) (0.8-7.0) Baso % (Auto) (0.1-1.2) % Neut # (Auto) (1.78-5.38) K/mm3 Lymph # (Auto) (1.32-3.57) K/mm3 [place] # (Auto) (0.30-0.82) K/mm3 Eos # (Auto) (0.04-0.54) K/mm3 Baso # (Auto) (0.01-0.08) K/mm3 Manual Slide Review D-Dimer, Quantitative (0.19-0.50) mg/L Puncture Site Rt radial ABG pH 7.40 (7.35-7.45) ABG pCO2 40.8 (35.0-45.0) mmHg ABG pO2 66.0 L (80.0-100.0) mmHg ABG HCO3 24.7 (22.0-26.0) meq/L ABG O2 Saturation 91.6 L (96.0-97.0) % ABG Base Excess 0.4 (-2-2.0) Ramu Test Positive O2 Delivery Device Nasal cannula Oxygen Flow Rate 2.0 Sodium (136-145) mEq/L Potassium (3.5-5.1) mEq/L Chloride (98-107) mEq/L Carbon Dioxide (21-32) mEq/L Anion Gap (5-15) BUN (7-18) mg/dL Creatinine (0.7-1.3) mg/dL Est Cr Clr Drug Dosing mL/min Estimated GFR (MDRD) (>60) mL/min BUN/Creatinine Ratio (14-18) Glucose (70-99) mg/dL POC Glucose 109 H (70-99) mg/dL Lactic Acid (0.4-2.0) mmol/L Calcium (8.5-10.1) mg/dL Magnesium (1.8-2.4) mg/dL Total Bilirubin (0.2-1.0) mg/dL AST (15-37) U/L ALT (16-63) U/L Alkaline Phosphatase (46-116) U/L Troponin I (0.00-0.056) ng/mL C-Reactive Protein (<1.0) mg/dL NT-Pro-B Natriuret Pep 27 (0-450) pg/mL Total Protein (6.4-8.2) g/dl Albumin (3.4-5.0) g/dl Globulin gm/dL Albumin/Globulin Ratio (1-2) 11/16/20 11/16/20 11/16/20 Range/Units 06:08 06:08 06:08 WBC 1.77 L* (4.23-9.07) K/mm3 RBC 5.30 (4.63-6.08) M/mm3 Hgb 15.5 (13.7-17.5) gm/dl Hct 45.8 (40.1-51.0) % MCV 86.4 (79.0-92.2) fl MCH 29.2 (25.7-32.2) pg MCHC 33.8 (32.2-35.5) g/dl RDW Std Deviation 37.5 (35.1-43.9) fL Plt Count 114 L (163-337) K/mm3 MPV 10.3 (9.4-12.3) fl Neut % (Auto) 53.1 (34.0-67.9) % Lymph % (Auto) 35.6 (21.8-53.1) % [place] % (Auto) 10.7 (5.3-12.2) % Eos % (Auto) 0 L (0.8-7.0) Baso % (Auto) 0.6 (0.1-1.2) % Neut # (Auto) 0.94 L (1.78-5.38) K/mm3 Lymph # (Auto) 0.63 L (1.32-3.57) K/mm3 [place] # (Auto) 0.19 L (0.30-0.82) K/mm3 Eos # (Auto) 0.00 L (0.04-0.54) K/mm3 Baso # (Auto) 0.01 (0.01-0.08) K/mm3 Manual Slide Review Abnormal smear D-Dimer, Quantitative 0.38 (0.19-0.50) mg/L Puncture Site ABG pH (7.35-7.45) ABG pCO2 (35.0-45.0) mmHg ABG pO2 (80.0-100.0) mmHg ABG HCO3 (22.0-26.0) meq/L ABG O2 Saturation (96.0-97.0) % ABG Base Excess (-2-2.0) Ramu Test O2 Delivery Device Oxygen Flow Rate Sodium 137 (136-145) mEq/L Potassium 4.0 (3.5-5.1) mEq/L Chloride 98 (98-107) mEq/L Carbon Dioxide 29 (21-32) mEq/L Anion Gap 14.0 (5-15) BUN 24 H (7-18) mg/dL Creatinine 1.1 (0.7-1.3) mg/dL Est Cr Clr Drug Dosing 64.57 mL/min Estimated GFR (MDRD) > 60 (>60) mL/min BUN/Creatinine Ratio 21.8 H (14-18) Glucose 157 H (70-99) mg/dL POC Glucose (70-99) mg/dL Lactic Acid (0.4-2.0) mmol/L Calcium 8.4 L (8.5-10.1) mg/dL Magnesium 2.0 (1.8-2.4) mg/dL Total Bilirubin 0.7 (0.2-1.0) mg/dL AST 73 H (15-37) U/L ALT 66 H (16-63) U/L Alkaline Phosphatase 39 L (46-116) U/L Troponin I (0.00-0.056) ng/mL C-Reactive Protein 6.0 H* (<1.0) mg/dL NT-Pro-B Natriuret Pep (0-450) pg/mL Total Protein 7.3 (6.4-8.2) g/dl Albumin 3.2 L (3.4-5.0) g/dl Globulin 4.1 gm/dL Albumin/Globulin Ratio 0.8 L (1-2) 11/16/20 Range/Units 06:08 WBC (4.23-9.07) K/mm3 RBC (4.63-6.08) M/mm3 Hgb (13.7-17.5) gm/dl Hct (40.1-51.0) % MCV (79.0-92.2) fl MCH (25.7-32.2) pg MCHC (32.2-35.5) g/dl RDW Std Deviation (35.1-43.9) fL Plt Count (163-337) K/mm3 MPV (9.4-12.3) fl Neut % (Auto) (34.0-67.9) % Lymph % (Auto) (21.8-53.1) % [place] % (Auto) (5.3-12.2) % Eos % (Auto) (0.8-7.0) Baso % (Auto) (0.1-1.2) % Neut # (Auto) (1.78-5.38) K/mm3 Lymph # (Auto) (1.32-3.57) K/mm3 [place] # (Auto) (0.30-0.82) K/mm3 Eos # (Auto) (0.04-0.54) K/mm3 Baso # (Auto) (0.01-0.08) K/mm3 Manual Slide Review D-Dimer, Quantitative (0.19-0.50) mg/L Puncture Site ABG pH (7.35-7.45) ABG pCO2 (35.0-45.0) mmHg ABG pO2 (80.0-100.0) mmHg ABG HCO3 (22.0-26.0) meq/L ABG O2 Saturation (96.0-97.0) % ABG Base Excess (-2-2.0) Ramu Test O2 Delivery Device Oxygen Flow Rate Sodium (136-145) mEq/L Potassium (3.5-5.1) mEq/L Chloride (98-107) mEq/L Carbon Dioxide (21-32) mEq/L Anion Gap (5-15) BUN (7-18) mg/dL Creatinine (0.7-1.3) mg/dL Est Cr Clr Drug Dosing mL/min Estimated GFR (MDRD) (>60) mL/min BUN/Creatinine Ratio (14-18) Glucose (70-99) mg/dL POC Glucose (70-99) mg/dL Lactic Acid 1.7 (0.4-2.0) mmol/L Calcium (8.5-10.1) mg/dL Magnesium (1.8-2.4) mg/dL Total Bilirubin (0.2-1.0) mg/dL AST (15-37) U/L ALT (16-63) U/L Alkaline Phosphatase (46-116) U/L Troponin I (0.00-0.056) ng/mL C-Reactive Protein (<1.0) mg/dL NT-Pro-B Natriuret Pep (0-450) pg/mL Total Protein (6.4-8.2) g/dl Albumin (3.4-5.0) g/dl Globulin gm/dL Albumin/Globulin Ratio (1-2) Med Orders - Current: Current Medications Acetaminophen (Acetaminophen 325 Mg Tab) 650 mg PO Q4H PRN PRN Reason: Pain (Mild 1-3)/fever Last Admin: 11/16/20 08:53 Dose: 650 mg Documented by: Albuterol/Ipratropium (Albuterol/Ipratropium 3.0-0.5 Mg/3 Ml Neb Soln) 3 ml NEB QIDRT PRN PRN Reason: Shortness Of Breath/wheezing Allopurinol (Allopurinol 300 Mg Tab) 150 mg PO DAILY [facility] Last Admin: 11/16/20 08:52 Dose: 150 mg Documented by: Amlodipine Besylate (Amlodipine 5 Mg Tab) 5 mg PO DAILY [facility] Last Admin: 11/16/20 08:50 Dose: 5 mg Documented by: Cholecalciferol (Cholecalciferol (Vitamin D3) 25 Mcg Tab) 25 mcg PO DAILY [facility] Last Admin: 11/16/20 08:54 Dose: 25 mcg Documented by: Dexamethasone (Dexamethasone 4 Mg Tab) 6 mg PO DAILY [facility] Stop: 11/24/20 09:01 Last Admin: 11/16/20 08:49 Dose: 6 mg Documented by: Docusate Sodium (Docusate Sodium 100 Mg Cap) 100 mg PO Q12H PRN PRN Reason: Constipation Famotidine (Famotidine 20 Mg Tab) 20 mg PO DAILY [facility] Last Admin: 11/16/20 08:54 Dose: 20 mg Documented by: Finasteride (Finasteride 5 Mg Tab) 5 mg PO DAILY [facility] Last Admin: 11/16/20 08:54 Dose: 5 mg Documented by: Guaifenesin (Guaifenesin 600 Mg Tab.Er) 600 mg PO BID [facility] Last Admin: 11/16/20 08:52 Dose: 600 mg Documented by: Heparin Sodium (Porcine) (Heparin Sodium 5,000 Units/Ml Vial) 7,500 units SUBCUT Q8H [facility] Last Admin: 11/16/20 08:54 Dose: 7,500 units Documented by: Hydralazine HCl (Hydralazine 20 Mg/Ml Sdv) 10 mg IVPUSH Q4H PRN PRN Reason: Hypertension Remdesivir 100 mg/ Sodium (Chloride) 100 mls @ 100 mls/hr IV Q24H [facility] Stop: 11/19/20 21:59 Insulin Human Lispro (Insulin Lispro 100 Unit/Ml 10 Ml Vial) 0 unit SUBCUT QID ACANDBED [facility]; Protocol Last Admin: 11/16/20 08:48 Dose: 1 unit Documented by: Metformin HCl (Metformin 500 Mg Tab) 500 mg PO BID [facility] Last Admin: 11/16/20 08:52 Dose: 500 mg Documented by: Ondansetron HCl (Ondansetron 4 Mg Tab.Dis) 4 mg PO Q4H PRN PRN Reason: nausea, able to take PO Sodium Chloride (Sodium Chloride 0.9% 10 Ml Syringe) 10 ml FLUSH ASDIRECTED PRN PRN Reason: Keep Vein Open Last Admin: 11/15/20 17:05 Dose: 10 ml Documented by: Tamsulosin HCl (Tamsulosin 0.4 Mg Cap.Er) 0.4 mg PO DAILY [facility] Last Admin: 11/16/20 08:52 Dose: 0.4 mg Documented by: Temazepam (Temazepam 7.5 Mg Cap) 7.5 mg PO BEDTIME PRN PRN Reason: Sleep Discontinued Medications Dexamethasone (Dexamethasone 4 Mg Tab) 6 mg PO ONETIME ONE Stop: 11/15/20 16:47 Last Admin: 11/15/20 17:06 Dose: 6 mg Documented by: Dexamethasone (Dexamethasone 10 Mg/Ml Sdv) 6 mg IVPUSH DAILY [facility] Stop: 11/25/20 09:01 Remdesivir 200 mg/ Sodium (Chloride) 250 mls @ 250 mls/hr IV ONETIME ONE Stop: 11/15/20 17:18 Last Admin: 11/15/20 20:21 Dose: 250 mls/hr Documented by: Remdesivir 100 mg/ Sodium (Chloride) 100 mls @ 100 mls/hr IV Q24H [facility] Stop: 11/20/20 18:29 Remdesivir 200 mg/ Sodium (Chloride) 250 mls @ 250 mls/hr IV ONETIME ONE Stop: 11/15/20 21:59 Last Admin: 11/15/20 20:38 Dose: Not Given Documented by: Ketorolac Tromethamine (Ketorolac 30 Mg/Ml Sdv) 30 mg IVPUSH ONETIME ONE Stop: 11/15/20 16:48 Last Admin: 11/15/20 17:06 Dose: 30 mg Documented by: - Exam Quality Assessment: Supplemental Oxygen (1.5L), DVT Prophylaxis. No: Urine Catheter General: Alert, Oriented, Cooperative, No Acute Distress HEENT: Pupils Equal, Pupils Reactive, Mucous Membr. Moist/[place] Neck: Supple, Trachea Midline Lungs: Normal Respiratory Effort, Decreased Breath Sounds, Crackles Cardiovascular: Regular Rate, Regular Rhythm GI/Abdominal Exam: Normal Bowel Sounds, Soft, Non-Tender, No Distention (Male) Exam: Deferred Back Exam: Normal Inspection, Full Range of Motion Extremities: Normal Inspection, Normal Range of Motion, Non-Tender, No Pedal Edema, Normal Capillary Refill Peripheral Pulses: 3+: Radial (L), Radial (R), Dorsalis Pedis (L), Dorsalis Pedis (R) Skin: Warm, Dry, Intact Neurological: No New Focal Deficit Psy/Mental Status: Alert, Normal Affect, Normal Mood - Patient Data Lab Results Last 24 hrs: Laboratory Results - last 24 hr 11/15/20 11/15/20 11/15/20 Range/Units 15:55 15:55 15:55 WBC 2.66 L (4.23-9.07) K/mm3 RBC 5.11 (4.63-6.08) M/mm3 Hgb 15.1 (13.7-17.5) gm/dl Hct 44.2 (40.1-51.0) % MCV 86.5 (79.0-92.2) fl MCH 29.5 (25.7-32.2) pg MCHC 34.2 (32.2-35.5) g/dl RDW Std Deviation 37.6 (35.1-43.9) fL Plt Count 101 L (163-337) K/mm3 MPV 10.2 (9.4-12.3) fl Neut % (Auto) 66.9 (34.0-67.9) % Lymph % (Auto) 24.1 (21.8-53.1) % [place] % (Auto) 8.6 (5.3-12.2) % Eos % (Auto) 0 L (0.8-7.0) Baso % (Auto) 0.4 (0.1-1.2) % Neut # (Auto) 1.78 (1.78-5.38) K/mm3 Lymph # (Auto) 0.64 L (1.32-3.57) K/mm3 [place] # (Auto) 0.23 L (0.30-0.82) K/mm3 Eos # (Auto) 0.00 L (0.04-0.54) K/mm3 Baso # (Auto) 0.01 (0.01-0.08) K/mm3 Manual Slide Review D-Dimer, Quantitative 0.61 H (0.19-0.50) mg/L Puncture Site ABG pH (7.35-7.45) ABG pCO2 (35.0-45.0) mmHg ABG pO2 (80.0-100.0) mmHg ABG HCO3 (22.0-26.0) meq/L ABG O2 Saturation (96.0-97.0) % ABG Base Excess (-2-2.0) Ramu Test O2 Delivery Device Oxygen Flow Rate Sodium 137 (136-145) mEq/L Potassium 3.9 (3.5-5.1) mEq/L Chloride 98 (98-107) mEq/L Carbon Dioxide 31 (21-32) mEq/L Anion Gap 11.9 (5-15) BUN 29 H (7-18) mg/dL Creatinine 1.1 (0.7-1.3) mg/dL Est Cr Clr Drug Dosing 64.57 mL/min Estimated GFR (MDRD) > 60 (>60) mL/min BUN/Creatinine Ratio 26.4 H (14-18) Glucose 110 H (70-99) mg/dL POC Glucose (70-99) mg/dL Lactic Acid (0.4-2.0) mmol/L Calcium 8.6 (8.5-10.1) mg/dL Magnesium (1.8-2.4) mg/dL Total Bilirubin 0.7 (0.2-1.0) mg/dL AST 71 H (15-37) U/L ALT 65 H (16-63) U/L Alkaline Phosphatase 39 L (46-116) U/L Troponin I < 0.017 (0.00-0.056) ng/mL C-Reactive Protein 5.1 H* (<1.0) mg/dL NT-Pro-B Natriuret Pep (0-450) pg/mL Total Protein 7.0 (6.4-8.2) g/dl Albumin 3.3 L (3.4-5.0) g/dl Globulin 3.7 gm/dL Albumin/Globulin Ratio 0.9 L (1-2) 11/15/20 11/15/20 11/15/20 Range/Units 15:55 17:17 20:11 WBC (4.23-9.07) K/mm3 RBC (4.63-6.08) M/mm3 Hgb (13.7-17.5) gm/dl Hct (40.1-51.0) % MCV (79.0-92.2) fl MCH (25.7-32.2) pg MCHC (32.2-35.5) g/dl RDW Std Deviation (35.1-43.9) fL Plt Count (163-337) K/mm3 MPV (9.4-12.3) fl Neut % (Auto) (34.0-67.9) % Lymph % (Auto) (21.8-53.1) % [place] % (Auto) (5.3-12.2) % Eos % (Auto) (0.8-7.0) Baso % (Auto) (0.1-1.2) % Neut # (Auto) (1.78-5.38) K/mm3 Lymph # (Auto) (1.32-3.57) K/mm3 [place] # (Auto) (0.30-0.82) K/mm3 Eos # (Auto) (0.04-0.54) K/mm3 Baso # (Auto) (0.01-0.08) K/mm3 Manual Slide Review D-Dimer, Quantitative (0.19-0.50) mg/L Puncture Site Rt radial ABG pH 7.40 (7.35-7.45) ABG pCO2 40.8 (35.0-45.0) mmHg ABG pO2 66.0 L (80.0-100.0) mmHg ABG HCO3 24.7 (22.0-26.0) meq/L ABG O2 Saturation 91.6 L (96.0-97.0) % ABG Base Excess 0.4 (-2-2.0) Ramu Test Positive O2 Delivery Device Nasal cannula Oxygen Flow Rate 2.0 Sodium (136-145) mEq/L Potassium (3.5-5.1) mEq/L Chloride (98-107) mEq/L Carbon Dioxide (21-32) mEq/L Anion Gap (5-15) BUN (7-18) mg/dL Creatinine (0.7-1.3) mg/dL Est Cr Clr Drug Dosing mL/min Estimated GFR (MDRD) (>60) mL/min BUN/Creatinine Ratio (14-18) Glucose (70-99) mg/dL POC Glucose 109 H (70-99) mg/dL Lactic Acid (0.4-2.0) mmol/L Calcium (8.5-10.1) mg/dL Magnesium (1.8-2.4) mg/dL Total Bilirubin (0.2-1.0) mg/dL AST (15-37) U/L ALT (16-63) U/L Alkaline Phosphatase (46-116) U/L Troponin I (0.00-0.056) ng/mL C-Reactive Protein (<1.0) mg/dL NT-Pro-B Natriuret Pep 27 (0-450) pg/mL Total Protein (6.4-8.2) g/dl Albumin (3.4-5.0) g/dl Globulin gm/dL Albumin/Globulin Ratio (1-2) 11/16/20 11/16/20 11/16/20 Range/Units 06:08 06:08 06:08 WBC 1.77 L* (4.23-9.07) K/mm3 RBC 5.30 (4.63-6.08) M/mm3 Hgb 15.5 (13.7-17.5) gm/dl Hct 45.8 (40.1-51.0) % MCV 86.4 (79.0-92.2) fl MCH 29.2 (25.7-32.2) pg MCHC 33.8 (32.2-35.5) g/dl RDW Std Deviation 37.5 (35.1-43.9) fL Plt Count 114 L (163-337) K/mm3 MPV 10.3 (9.4-12.3) fl Neut % (Auto) 53.1 (34.0-67.9) % Lymph % (Auto) 35.6 (21.8-53.1) % [place] % (Auto) 10.7 (5.3-12.2) % Eos % (Auto) 0 L (0.8-7.0) Baso % (Auto) 0.6 (0.1-1.2) % Neut # (Auto) 0.94 L (1.78-5.38) K/mm3 Lymph # (Auto) 0.63 L (1.32-3.57) K/mm3 [place] # (Auto) 0.19 L (0.30-0.82) K/mm3 Eos # (Auto) 0.00 L (0.04-0.54) K/mm3 Baso # (Auto) 0.01 (0.01-0.08) K/mm3 Manual Slide Review Abnormal smear D-Dimer, Quantitative 0.38 (0.19-0.50) mg/L Puncture Site ABG pH (7.35-7.45) ABG pCO2 (35.0-45.0) mmHg ABG pO2 (80.0-100.0) mmHg ABG HCO3 (22.0-26.0) meq/L ABG O2 Saturation (96.0-97.0) % ABG Base Excess (-2-2.0) Ramu Test O2 Delivery Device Oxygen Flow Rate Sodium 137 (136-145) mEq/L Potassium 4.0 (3.5-5.1) mEq/L Chloride 98 (98-107) mEq/L Carbon Dioxide 29 (21-32) mEq/L Anion Gap 14.0 (5-15) BUN 24 H (7-18) mg/dL Creatinine 1.1 (0.7-1.3) mg/dL Est Cr Clr Drug Dosing 64.57 mL/min Estimated GFR (MDRD) > 60 (>60) mL/min BUN/Creatinine Ratio 21.8 H (14-18) Glucose 157 H (70-99) mg/dL POC Glucose (70-99) mg/dL Lactic Acid (0.4-2.0) mmol/L Calcium 8.4 L (8.5-10.1) mg/dL Magnesium 2.0 (1.8-2.4) mg/dL Total Bilirubin 0.7 (0.2-1.0) mg/dL AST 73 H (15-37) U/L ALT 66 H (16-63) U/L Alkaline Phosphatase 39 L (46-116) U/L Troponin I (0.00-0.056) ng/mL C-Reactive Protein 6.0 H* (<1.0) mg/dL NT-Pro-B Natriuret Pep (0-450) pg/mL Total Protein 7.3 (6.4-8.2) g/dl Albumin 3.2 L (3.4-5.0) g/dl Globulin 4.1 gm/dL Albumin/Globulin Ratio 0.8 L (1-2) 11/16/20 Range/Units 06:08 WBC (4.23-9.07) K/mm3 RBC (4.63-6.08) M/mm3 Hgb (13.7-17.5) gm/dl Hct (40.1-51.0) % MCV (79.0-92.2) fl MCH (25.7-32.2) pg MCHC (32.2-35.5) g/dl RDW Std Deviation (35.1-43.9) fL Plt Count (163-337) K/mm3 MPV (9.4-12.3) fl Neut % (Auto) (34.0-67.9) % Lymph % (Auto) (21.8-53.1) % [place] % (Auto) (5.3-12.2) % Eos % (Auto) (0.8-7.0) Baso % (Auto) (0.1-1.2) % Neut # (Auto) (1.78-5.38) K/mm3 Lymph # (Auto) (1.32-3.57) K/mm3 [place] # (Auto) (0.30-0.82) K/mm3 Eos # (Auto) (0.04-0.54) K/mm3 Baso # (Auto) (0.01-0.08) K/mm3 Manual Slide Review D-Dimer, Quantitative (0.19-0.50) mg/L Puncture Site ABG pH (7.35-7.45) ABG pCO2 (35.0-45.0) mmHg ABG pO2 (80.0-100.0) mmHg ABG HCO3 (22.0-26.0) meq/L ABG O2 Saturation (96.0-97.0) % ABG Base Excess (-2-2.0) Ramu Test O2 Delivery Device Oxygen Flow Rate Sodium (136-145) mEq/L Potassium (3.5-5.1) mEq/L Chloride (98-107) mEq/L Carbon Dioxide (21-32) mEq/L Anion Gap (5-15) BUN (7-18) mg/dL Creatinine (0.7-1.3) mg/dL Est Cr Clr Drug Dosing mL/min Estimated GFR (MDRD) (>60) mL/min BUN/Creatinine Ratio (14-18) Glucose (70-99) mg/dL POC Glucose (70-99) mg/dL Lactic Acid 1.7 (0.4-2.0) mmol/L Calcium (8.5-10.1) mg/dL Magnesium (1.8-2.4) mg/dL Total Bilirubin (0.2-1.0) mg/dL AST (15-37) U/L ALT (16-63) U/L Alkaline Phosphatase (46-116) U/L Troponin I (0.00-0.056) ng/mL C-Reactive Protein (<1.0) mg/dL NT-Pro-B Natriuret Pep (0-450) pg/mL Total Protein (6.4-8.2) g/dl Albumin (3.4-5.0) g/dl Globulin gm/dL Albumin/Globulin Ratio (1-2) Result Diagrams: 11/16/20 06:08 11/16/20 06:08 Sepsis Event Note - Evaluation Sepsis Screening Result: Sepsis Risk - Focused Exam Vital Signs: Vital Signs Temp Pulse Resp BP Pulse Ox 11/16/20 09:00 22 H 11/16/20 08:51 73 88 L 11/16/20 08:50 97.5 F 62 24 H 93/61 87 L 11/16/20 08:00 21 H 11/16/20 07:00 24 H 11/16/20 06:48 98.1 F 72 20 109/58 L 93 L 11/16/20 06:00 19 11/16/20 05:00 23 H 11/16/20 04:00 19 11/16/20 03:00 19 11/16/20 02:00 19 11/16/20 01:00 19 11/16/20 00:00 19 11/15/20 23:00 21 H 11/15/20 22:00 20 - Problem List & Annotations (1) Type II diabetes mellitus SNOMED Code(s): 24874797 Code(s): E11.9 - TYPE 2 DIABETES MELLITUS WITHOUT COMPLICATIONS Status: Chronic Priority: Medium Current Visit: Yes Qualifiers: Diabetes mellitus intermediate accountant insulin use: without intermediate accountant use Diabetes mellitus complication status: without complication Qualified Code(s): E11.9 - Type 2 diabetes mellitus without complications (2) [place] (hard of hearing) SNOMED Code(s): 52296357 Code(s): H91.90 - UNSPECIFIED HEARING LOSS, UNSPECIFIED EAR Status: Chronic Priority: Low Current Visit: No Qualifiers: Hearing loss type: unspecified Laterality: unspecified laterality Qualified Code(s): H91.90 - Unspecified hearing loss, unspecified ear (3) Hypoxia SNOMED Code(s): 426318542 Code(s): R09.02 - HYPOXEMIA Status: Acute Priority: High Current Visit: Yes (4) Pneumonia due to COVID-19 virus SNOMED Code(s): 358704924204049998 Code(s): U07.1 - COVID-19; J12.82 - PNEUMONIA DUE TO CORONAVIRUS DISEASE 2019 Status: Acute Priority: High Current Visit: Yes (5) HTN (hypertension) SNOMED Code(s): 61376055 Code(s): I10 - ESSENTIAL (PRIMARY) HYPERTENSION Status: Chronic Priority: Low Current Visit: No Qualifiers: Hypertension type: unspecified Qualified Code(s): I10 - Essential (primary) hypertension (6) GERD (gastroesophageal reflux disease) SNOMED Code(s): 313105137 Code(s): K21.9 - GASTRO-ESOPHAGEAL REFLUX DISEASE WITHOUT ESOPHAGITIS Status: Chronic Priority: Low Current Visit: No Qualifiers: Esophagitis presence: esophagitis presence not specified Qualified Code(s): K21.9 - Gastro-esophageal reflux disease without esophagitis (7) BPH (benign prostatic hyperplasia) SNOMED Code(s): 179152874 Code(s): N40.0 - BENIGN PROSTATIC HYPERPLASIA WITHOUT LOWER URINRY TRACT SYMP Status: Chronic Priority: Low Current Visit: No Qualifiers: Lower urinary tract symptom presence: unspecified whether lower urinary tract symptoms present Qualified Code(s): N40.0 - Benign prostatic hyperplasia without lower urinary tract symptoms (8) Neutropenia SNOMED Code(s): 519098167 Code(s): D70.9 - NEUTROPENIA, UNSPECIFIED Status: Chronic Priority: Medium Current Visit: Yes Qualifiers: Neutropenia type: due to infection Qualified Code(s): D70.3 - Neutropenia due to infection - Problem List Review Problem List Initiated/Reviewed/Updated: Yes - My Orders Last 24 Hours: My Active Orders 11/16/20 07:18 Up With Assistance [RC] ASDIRECTED 11/16/20 09:00 dexAMETHasone 6 mg PO DAILY - Assessment Assessment:: This is a 75-year-old male admitted to the floor for COVID-19 pneumonia treatment. Patient remains weak with a cough and shortness of breath. WBC today is down to 1.77. Hemoglobin is 15.5. Platelets are low at 114,000 but this is improved over yesterday. D-dimer today was down to 0.38. Sodium 137. Potassium 4.0. Chloride 98. Carbon dioxide 29. Anion gap is 14.0. BUN is 24. Creatinine 1.1. GFR [place] 60. Blood glucose readings have been 10 9-1 57. Lactic acid is 1.7. Calcium is 8.4. Magnesium 2.0. Total bilirubin 0.7. AST 73, ALT 66, alkaline phosphatase 39. We'll continue to monitor these as patient is on remdesivir. CRP is up to 6.0. Albumin is 3.2. Patient remains on oxygen and is down to 1.5 L. He has been proning and utilizing his incentive spirometer. Unfortunately our facility is out of [facility]. He'll remain hospitalized. Unknown length of stay pending continued improvement. - Plan Plan:: Hypoxia Pneumonia due to COVID-19 virus Neutropenia * O2 as needed to keep saturations 88 to 95%. * I-S * RT consultation * Mucinex twice daily * Remdesivir day 03/18 * Dexamethasone 6 mg day 03/23 * Prone whenever possible * Ambulate around room * Continuous pulse oximetry * Telemetry * Airborne/contact isolation * Daily labs * Every 48-hour D-dimer * Procalcitonin pending * Will hold off IV antibiotics for now. * PT/OT evaluation Type II diabetes mellitus * Medium dose sliding scale insulin * 4 times daily AC at bedtime blood glucose checks * Diabetic diet * Discontinue Metformin while in hospital * Anticipate rise in blood sugars due to steroids [place] (hard of hearing) * No acute concerns * Ensure patient is able to hear when discussing treatment with him HTN (hypertension) * As needed hydralazine * Monitor vital signs GERD (gastroesophageal reflux disease) * Daily famotidine * No acute concerns BPH (benign prostatic hyperplasia) * Continue Proscar * No acute concerns Gout * Continue home allopurinol Code status: Full Code PCP: Dr. Peña with the [facility] DVT prophylaxis: Heparin Disposition: Patient will remain admitted to the floor for COVID-19 pneumonia treatment. Total length of stay 3 to 5 days pending response to treatment and ability to wean off oxygen. <Ailyn Singh - Last Filed: 11/16/20 12:08> - Patient Data Vitals - Most Recent: Last Vital Signs Temp 97.5 F 11/16/20 08:50 Pulse 73 11/16/20 08:51 Resp 23 H 11/16/20 10:00 BP 93/61 11/16/20 08:50 Pulse Ox 93 L 11/16/20 10:05 I&O - Last 24 Hours: Intake & Output 11/15/20 11/16/20 11/16/20 22:59 06:59 14:59 Intake Total 850 240 Balance 850 240 Lab Results Last 24 Hours: Laboratory Results - last 24 hr 11/15/20 11/15/20 11/15/20 Range/Units 15:55 15:55 15:55 WBC 2.66 L (4.23-9.07) K/mm3 RBC 5.11 (4.63-6.08) M/mm3 Hgb 15.1 (13.7-17.5) gm/dl Hct 44.2 (40.1-51.0) % MCV 86.5 (79.0-92.2) fl MCH 29.5 (25.7-32.2) pg MCHC 34.2 (32.2-35.5) g/dl RDW Std Deviation 37.6 (35.1-43.9) fL Plt Count 101 L (163-337) K/mm3 MPV 10.2 (9.4-12.3) fl Neut % (Auto) 66.9 (34.0-67.9) % Lymph % (Auto) 24.1 (21.8-53.1) % [place] % (Auto) 8.6 (5.3-12.2) % Eos % (Auto) 0 L (0.8-7.0) Baso % (Auto) 0.4 (0.1-1.2) % Neut # (Auto) 1.78 (1.78-5.38) K/mm3 Lymph # (Auto) 0.64 L (1.32-3.57) K/mm3 [place] # (Auto) 0.23 L (0.30-0.82) K/mm3 Eos # (Auto) 0.00 L (0.04-0.54) K/mm3 Baso # (Auto) 0.01 (0.01-0.08) K/mm3 Manual Slide Review D-Dimer, Quantitative 0.61 H (0.19-0.50) mg/L Puncture Site ABG pH (7.35-7.45) ABG pCO2 (35.0-45.0) mmHg ABG pO2 (80.0-100.0) mmHg ABG HCO3 (22.0-26.0) meq/L ABG O2 Saturation (96.0-97.0) % ABG Base Excess (-2-2.0) Ramu Test O2 Delivery Device Oxygen Flow Rate Sodium 137 (136-145) mEq/L Potassium 3.9 (3.5-5.1) mEq/L Chloride 98 (98-107) mEq/L Carbon Dioxide 31 (21-32) mEq/L Anion Gap 11.9 (5-15) BUN 29 H (7-18) mg/dL Creatinine 1.1 (0.7-1.3) mg/dL Est Cr Clr Drug Dosing 64.57 mL/min Estimated GFR (MDRD) > 60 (>60) mL/min BUN/Creatinine Ratio 26.4 H (14-18) Glucose 110 H (70-99) mg/dL POC Glucose (70-99) mg/dL Lactic Acid (0.4-2.0) mmol/L Calcium 8.6 (8.5-10.1) mg/dL Magnesium (1.8-2.4) mg/dL Total Bilirubin 0.7 (0.2-1.0) mg/dL AST 71 H (15-37) U/L ALT 65 H (16-63) U/L Alkaline Phosphatase 39 L (46-116) U/L Troponin I < 0.017 (0.00-0.056) ng/mL C-Reactive Protein 5.1 H* (<1.0) mg/dL NT-Pro-B Natriuret Pep (0-450) pg/mL Total Protein 7.0 (6.4-8.2) g/dl Albumin 3.3 L (3.4-5.0) g/dl Globulin 3.7 gm/dL Albumin/Globulin Ratio 0.9 L (1-2) 11/15/20 11/15/20 11/15/20 Range/Units 15:55 17:17 20:11 WBC (4.23-9.07) K/mm3 RBC (4.63-6.08) M/mm3 Hgb (13.7-17.5) gm/dl Hct (40.1-51.0) % MCV (79.0-92.2) fl MCH (25.7-32.2) pg MCHC (32.2-35.5) g/dl RDW Std Deviation (35.1-43.9) fL Plt Count (163-337) K/mm3 MPV (9.4-12.3) fl Neut % (Auto) (34.0-67.9) % Lymph % (Auto) (21.8-53.1) % [place] % (Auto) (5.3-12.2) % Eos % (Auto) (0.8-7.0) Baso % (Auto) (0.1-1.2) % Neut # (Auto) (1.78-5.38) K/mm3 Lymph # (Auto) (1.32-3.57) K/mm3 [place] # (Auto) (0.30-0.82) K/mm3 Eos # (Auto) (0.04-0.54) K/mm3 Baso # (Auto) (0.01-0.08) K/mm3 Manual Slide Review D-Dimer, Quantitative (0.19-0.50) mg/L Puncture Site Rt radial ABG pH 7.40 (7.35-7.45) ABG pCO2 40.8 (35.0-45.0) mmHg ABG pO2 66.0 L (80.0-100.0) mmHg ABG HCO3 24.7 (22.0-26.0) meq/L ABG O2 Saturation 91.6 L (96.0-97.0) % ABG Base Excess 0.4 (-2-2.0) Ramu Test Positive O2 Delivery Device Nasal cannula Oxygen Flow Rate 2.0 Sodium (136-145) mEq/L Potassium (3.5-5.1) mEq/L Chloride (98-107) mEq/L Carbon Dioxide (21-32) mEq/L Anion Gap (5-15) BUN (7-18) mg/dL Creatinine (0.7-1.3) mg/dL Est Cr Clr Drug Dosing mL/min Estimated GFR (MDRD) (>60) mL/min BUN/Creatinine Ratio (14-18) Glucose (70-99) mg/dL POC Glucose 109 H (70-99) mg/dL Lactic Acid (0.4-2.0) mmol/L Calcium (8.5-10.1) mg/dL Magnesium (1.8-2.4) mg/dL Total Bilirubin (0.2-1.0) mg/dL AST (15-37) U/L ALT (16-63) U/L Alkaline Phosphatase (46-116) U/L Troponin I (0.00-0.056) ng/mL C-Reactive Protein (<1.0) mg/dL NT-Pro-B Natriuret Pep 27 (0-450) pg/mL Total Protein (6.4-8.2) g/dl Albumin (3.4-5.0) g/dl Globulin gm/dL Albumin/Globulin Ratio (1-2) 11/16/20 11/16/20 11/16/20 Range/Units 06:08 06:08 06:08 WBC 1.77 L* (4.23-9.07) K/mm3 RBC 5.30 (4.63-6.08) M/mm3 Hgb 15.5 (13.7-17.5) gm/dl Hct 45.8 (40.1-51.0) % MCV 86.4 (79.0-92.2) fl MCH 29.2 (25.7-32.2) pg MCHC 33.8 (32.2-35.5) g/dl RDW Std Deviation 37.5 (35.1-43.9) fL Plt Count 114 L (163-337) K/mm3 MPV 10.3 (9.4-12.3) fl Neut % (Auto) 53.1 (34.0-67.9) % Lymph % (Auto) 35.6 (21.8-53.1) % [place] % (Auto) 10.7 (5.3-12.2) % Eos % (Auto) 0 L (0.8-7.0) Baso % (Auto) 0.6 (0.1-1.2) % Neut # (Auto) 0.94 L (1.78-5.38) K/mm3 Lymph # (Auto) 0.63 L (1.32-3.57) K/mm3 [place] # (Auto) 0.19 L (0.30-0.82) K/mm3 Eos # (Auto) 0.00 L (0.04-0.54) K/mm3 Baso # (Auto) 0.01 (0.01-0.08) K/mm3 Manual Slide Review Abnormal smear D-Dimer, Quantitative 0.38 (0.19-0.50) mg/L Puncture Site ABG pH (7.35-7.45) ABG pCO2 (35.0-45.0) mmHg ABG pO2 (80.0-100.0) mmHg ABG HCO3 (22.0-26.0) meq/L ABG O2 Saturation (96.0-97.0) % ABG Base Excess (-2-2.0) Ramu Test O2 Delivery Device Oxygen Flow Rate Sodium 137 (136-145) mEq/L Potassium 4.0 (3.5-5.1) mEq/L Chloride 98 (98-107) mEq/L Carbon Dioxide 29 (21-32) mEq/L Anion Gap 14.0 (5-15) BUN 24 H (7-18) mg/dL Creatinine 1.1 (0.7-1.3) mg/dL Est Cr Clr Drug Dosing 64.57 mL/min Estimated GFR (MDRD) > 60 (>60) mL/min BUN/Creatinine Ratio 21.8 H (14-18) Glucose 157 H (70-99) mg/dL POC Glucose (70-99) mg/dL Lactic Acid (0.4-2.0) mmol/L Calcium 8.4 L (8.5-10.1) mg/dL Magnesium 2.0 (1.8-2.4) mg/dL Total Bilirubin 0.7 (0.2-1.0) mg/dL AST 73 H (15-37) U/L ALT 66 H (16-63) U/L Alkaline Phosphatase 39 L (46-116) U/L Troponin I (0.00-0.056) ng/mL C-Reactive Protein 6.0 H* (<1.0) mg/dL NT-Pro-B Natriuret Pep (0-450) pg/mL Total Protein 7.3 (6.4-8.2) g/dl Albumin 3.2 L (3.4-5.0) g/dl Globulin 4.1 gm/dL Albumin/Globulin Ratio 0.8 L (1-2) 11/16/20 11/16/20 Range/Units 06:08 06:52 WBC (4.23-9.07) K/mm3 RBC (4.63-6.08) M/mm3 Hgb (13.7-17.5) gm/dl Hct (40.1-51.0) % MCV (79.0-92.2) fl MCH (25.7-32.2) pg MCHC (32.2-35.5) g/dl RDW Std Deviation (35.1-43.9) fL Plt Count (163-337) K/mm3 MPV (9.4-12.3) fl Neut % (Auto) (34.0-67.9) % Lymph % (Auto) (21.8-53.1) % [place] % (Auto) (5.3-12.2) % Eos % (Auto) (0.8-7.0) Baso % (Auto) (0.1-1.2) % Neut # (Auto) (1.78-5.38) K/mm3 Lymph # (Auto) (1.32-3.57) K/mm3 [place] # (Auto) (0.30-0.82) K/mm3 Eos # (Auto) (0.04-0.54) K/mm3 Baso # (Auto) (0.01-0.08) K/mm3 Manual Slide Review D-Dimer, Quantitative (0.19-0.50) mg/L Puncture Site ABG pH (7.35-7.45) ABG pCO2 (35.0-45.0) mmHg ABG pO2 (80.0-100.0) mmHg ABG HCO3 (22.0-26.0) meq/L ABG O2 Saturation (96.0-97.0) % ABG Base Excess (-2-2.0) Ramu Test O2 Delivery Device Oxygen Flow Rate Sodium (136-145) mEq/L Potassium (3.5-5.1) mEq/L Chloride (98-107) mEq/L Carbon Dioxide (21-32) mEq/L Anion Gap (5-15) BUN (7-18) mg/dL Creatinine (0.7-1.3) mg/dL Est Cr Clr Drug Dosing mL/min Estimated GFR (MDRD) (>60) mL/min BUN/Creatinine Ratio (14-18) Glucose (70-99) mg/dL POC Glucose 147 H (70-99) mg/dL Lactic Acid 1.7 (0.4-2.0) mmol/L Calcium (8.5-10.1) mg/dL Magnesium (1.8-2.4) mg/dL Total Bilirubin (0.2-1.0) mg/dL AST (15-37) U/L ALT (16-63) U/L Alkaline Phosphatase (46-116) U/L Troponin I (0.00-0.056) ng/mL C-Reactive Protein (<1.0) mg/dL NT-Pro-B Natriuret Pep (0-450) pg/mL Total Protein (6.4-8.2) g/dl Albumin (3.4-5.0) g/dl Globulin gm/dL Albumin/Globulin Ratio (1-2) Med Orders - Current: Current Medications Acetaminophen (Acetaminophen 325 Mg Tab) 650 mg PO Q4H PRN PRN Reason: Pain (Mild 1-3)/fever Last Admin: 11/16/20 08:53 Dose: 650 mg Documented by: Albuterol (Albuterol 6.7 Gm Inhaler) 0 gm INH Q2H PRN PRN Reason: SOB/Wheezing Albuterol/Ipratropium (Albuterol/Ipratropium 3.0-0.5 Mg/3 Ml Neb Soln) 3 ml NEB QIDRT PRN PRN Reason: Shortness Of Breath/wheezing Allopurinol (Allopurinol 300 Mg Tab) 150 mg PO DAILY [facility] Last Admin: 11/16/20 08:52 Dose: 150 mg Documented by: Amlodipine Besylate (Amlodipine 5 Mg Tab) 5 mg PO DAILY [facility] Last Admin: 11/16/20 08:50 Dose: 5 mg Documented by: Cholecalciferol (Cholecalciferol (Vitamin D3) 25 Mcg Tab) 25 mcg PO DAILY [facility] Last Admin: 11/16/20 08:54 Dose: 25 mcg Documented by: Dexamethasone (Dexamethasone 4 Mg Tab) 6 mg PO DAILY [facility] Stop: 11/24/20 09:01 Last Admin: 11/16/20 08:49 Dose: 6 mg Documented by: Docusate Sodium (Docusate Sodium 100 Mg Cap) 100 mg PO Q12H PRN PRN Reason: Constipation Famotidine (Famotidine 20 Mg Tab) 20 mg PO DAILY [facility] Last Admin: 11/16/20 08:54 Dose: 20 mg Documented by: Finasteride (Finasteride 5 Mg Tab) 5 mg PO DAILY [facility] Last Admin: 11/16/20 08:54 Dose: 5 mg Documented by: Guaifenesin (Guaifenesin 600 Mg Tab.Er) 600 mg PO BID [facility] Last Admin: 11/16/20 08:52 Dose: 600 mg Documented by: Heparin Sodium (Porcine) (Heparin Sodium 5,000 Units/Ml Vial) 7,500 units SUBCUT Q8H [facility] Last Admin: 11/16/20 08:54 Dose: 7,500 units Documented by: Hydralazine HCl (Hydralazine 20 Mg/Ml Sdv) 10 mg IVPUSH Q4H PRN PRN Reason: Hypertension Remdesivir 100 mg/ Sodium (Chloride) 100 mls @ 100 mls/hr IV Q24H [facility] Stop: 11/19/20 21:59 Insulin Human Lispro (Insulin Lispro 100 Unit/Ml 10 Ml Vial) 0 unit SUBCUT QIDACANDBED [facility]; Protocol Last Admin: 11/16/20 11:50 Dose: 2 unit Documented by: Ondansetron HCl (Ondansetron 4 Mg Tab.Dis) 4 mg PO Q4H PRN PRN Reason: nausea, able to take PO Sodium Chloride (Sodium Chloride 0.9% 10 Ml Syringe) 10 ml FLUSH ASDIRECTED PRN PRN Reason: Keep Vein Open Last Admin: 11/15/20 17:05 Dose: 10 ml Documented by: Tamsulosin HCl (Tamsulosin 0.4 Mg Cap.Er) 0.4 mg PO DAILY [facility] Last Admin: 11/16/20 08:52 Dose: 0.4 mg Documented by: Temazepam (Temazepam 7.5 Mg Cap) 7.5 mg PO BEDTIME PRN PRN Reason: Sleep Discontinued Medications Dexamethasone (Dexamethasone 4 Mg Tab) 6 mg PO ONETIME ONE Stop: 11/15/20 16:47 Last Admin: 11/15/20 17:06 Dose: 6 mg Documented by: Dexamethasone (Dexamethasone 10 Mg/Ml Sdv) 6 mg IVPUSH DAILY [facility] Stop: 11/25/20 09:01 Enoxaparin Sodium (Enoxaparin 40 Mg/0.4 Ml Syringe) 40 mg SUBCUT DAILY [facility] Remdesivir 200 mg/ Sodium (Chloride) 250 mls @ 250 mls/hr IV ONETIME ONE Stop: 11/15/20 17:18 Last Admin: 11/15/20 20:21 Dose: 250 mls/hr Documented by: Remdesivir 100 mg/ Sodium (Chloride) 100 mls @ 100 mls/hr IV Q24H [facility] Stop: 11/20/20 18:29 Remdesivir 200 mg/ Sodium (Chloride) 250 mls @ 250 mls/hr IV ONETIME ONE Stop: 11/15/20 21:59 Last Admin: 11/15/20 20:38 Dose: Not Given Documented by: Ketorolac Tromethamine (Ketorolac 30 Mg/Ml Sdv) 30 mg IVPUSH ONETIME ONE Stop: 11/15/20 16:48 Last Admin: 11/15/20 17:06 Dose: 30 mg Documented by: Metformin HCl (Metformin 500 Mg Tab) 500 mg PO BID [facility] Last Admin: 11/16/20 08:52 Dose: 500 mg Documented by: - Patient Data Lab Results Last 24 hrs: Laboratory Results - last 24 hr 11/15/20 11/15/20 11/15/20 Range/Units 15:55 15:55 15:55 WBC 2.66 L (4.23-9.07) K/mm3 RBC 5.11 (4.63-6.08) M/mm3 Hgb 15.1 (13.7-17.5) gm/dl Hct 44.2 (40.1-51.0) % MCV 86.5 (79.0-92.2) fl MCH 29.5 (25.7-32.2) pg MCHC 34.2 (32.2-35.5) g/dl RDW Std Deviation 37.6 (35.1-43.9) fL Plt Count 101 L (163-337) K/mm3 MPV 10.2 (9.4-12.3) fl Neut % (Auto) 66.9 (34.0-67.9) % Lymph % (Auto) 24.1 (21.8-53.1) % [place] % (Auto) 8.6 (5.3-12.2) % Eos % (Auto) 0 L (0.8-7.0) Baso % (Auto) 0.4 (0.1-1.2) % Neut # (Auto) 1.78 (1.78-5.38) K/mm3 Lymph # (Auto) 0.64 L (1.32-3.57) K/mm3 [place] # (Auto) 0.23 L (0.30-0.82) K/mm3 Eos # (Auto) 0.00 L (0.04-0.54) K/mm3 Baso # (Auto) 0.01 (0.01-0.08) K/mm3 Manual Slide Review D-Dimer, Quantitative 0.61 H (0.19-0.50) mg/L Puncture Site ABG pH (7.35-7.45) ABG pCO2 (35.0-45.0) mmHg ABG pO2 (80.0-100.0) mmHg ABG HCO3 (22.0-26.0) meq/L ABG O2 Saturation (96.0-97.0) % ABG Base Excess (-2-2.0) Ramu Test O2 Delivery Device Oxygen Flow Rate Sodium 137 (136-145) mEq/L Potassium 3.9 (3.5-5.1) mEq/L Chloride 98 (98-107) mEq/L Carbon Dioxide 31 (21-32) mEq/L Anion Gap 11.9 (5-15) BUN 29 H (7-18) mg/dL Creatinine 1.1 (0.7-1.3) mg/dL Est Cr Clr Drug Dosing 64.57 mL/min Estimated GFR (MDRD) > 60 (>60) mL/min BUN/Creatinine Ratio 26.4 H (14-18) Glucose 110 H (70-99) mg/dL POC Glucose (70-99) mg/dL Lactic Acid (0.4-2.0) mmol/L Calcium 8.6 (8.5-10.1) mg/dL Magnesium (1.8-2.4) mg/dL Total Bilirubin 0.7 (0.2-1.0) mg/dL AST 71 H (15-37) U/L ALT 65 H (16-63) U/L Alkaline Phosphatase 39 L (46-116) U/L Troponin I < 0.017 (0.00-0.056) ng/mL C-Reactive Protein 5.1 H* (<1.0) mg/dL NT-Pro-B Natriuret Pep (0-450) pg/mL Total Protein 7.0 (6.4-8.2) g/dl Albumin 3.3 L (3.4-5.0) g/dl Globulin 3.7 gm/dL Albumin/Globulin Ratio 0.9 L (1-2) 11/15/20 11/15/20 11/15/20 Range/Units 15:55 17:17 20:11 WBC (4.23-9.07) K/mm3 RBC (4.63-6.08) M/mm3 Hgb (13.7-17.5) gm/dl Hct (40.1-51.0) % MCV (79.0-92.2) fl MCH (25.7-32.2) pg MCHC (32.2-35.5) g/dl RDW Std Deviation (35.1-43.9) fL Plt Count (163-337) K/mm3 MPV (9.4-12.3) fl Neut % (Auto) (34.0-67.9) % Lymph % (Auto) (21.8-53.1) % [place] % (Auto) (5.3-12.2) % Eos % (Auto) (0.8-7.0) Baso % (Auto) (0.1-1.2) % Neut # (Auto) (1.78-5.38) K/mm3 Lymph # (Auto) (1.32-3.57) K/mm3 [place] # (Auto) (0.30-0.82) K/mm3 Eos # (Auto) (0.04-0.54) K/mm3 Baso # (Auto) (0.01-0.08) K/mm3 Manual Slide Review D-Dimer, Quantitative (0.19-0.50) mg/L Puncture Site Rt radial ABG pH 7.40 (7.35-7.45) ABG pCO2 40.8 (35.0-45.0) mmHg ABG pO2 66.0 L (80.0-100.0) mmHg ABG HCO3 24.7 (22.0-26.0) meq/L ABG O2 Saturation 91.6 L (96.0-97.0) % ABG Base Excess 0.4 (-2-2.0) Ramu Test Positive O2 Delivery Device Nasal cannula Oxygen Flow Rate 2.0 Sodium (136-145) mEq/L Potassium (3.5-5.1) mEq/L Chloride (98-107) mEq/L Carbon Dioxide (21-32) mEq/L Anion Gap (5-15) BUN (7-18) mg/dL Creatinine (0.7-1.3) mg/dL Est Cr Clr Drug Dosing mL/min Estimated GFR (MDRD) (>60) mL/min BUN/Creatinine Ratio (14-18) Glucose (70-99) mg/dL POC Glucose 109 H (70-99) mg/dL Lactic Acid (0.4-2.0) mmol/L Calcium (8.5-10.1) mg/dL Magnesium (1.8-2.4) mg/dL Total Bilirubin (0.2-1.0) mg/dL AST (15-37) U/L ALT (16-63) U/L Alkaline Phosphatase (46-116) U/L Troponin I (0.00-0.056) ng/mL C-Reactive Protein (<1.0) mg/dL NT-Pro-B Natriuret Pep 27 (0-450) pg/mL Total Protein (6.4-8.2) g/dl Albumin (3.4-5.0) g/dl Globulin gm/dL Albumin/Globulin Ratio (1-2) 10/06/21 10/06/21 10/06/21 Range/Units 06:08 06:08 06:08 WBC 1.77 L* (4.23-9.07) K/mm3 RBC 5.30 (4.63-6.08) M/mm3 Hgb 15.5 (13.7-17.5) gm/dl Hct 45.8 (40.1-51.0) % MCV 86.4 (79.0-92.2) fl MCH 29.2 (25.7-32.2) pg MCHC 33.8 (32.2-35.5) g/dl RDW Std Deviation 37.5 (35.1-43.9) fL Plt Count 114 L (163-337) K/mm3 MPV 10.3 (9.4-12.3) fl Neut % (Auto) 53.1 (34.0-67.9) % Lymph % (Auto) 35.6 (21.8-53.1) % [place] % (Auto) 10.7 (5.3-12.2) % Eos % (Auto) 0 L (0.8-7.0) Baso % (Auto) 0.6 (0.1-1.2) % Neut # (Auto) 0.94 L (1.78-5.38) K/mm3 Lymph # (Auto) 0.63 L (1.32-3.57) K/mm3 [place] # (Auto) 0.19 L (0.30-0.82) K/mm3 Eos # (Auto) 0.00 L (0.04-0.54) K/mm3 Baso # (Auto) 0.01 (0.01-0.08) K/mm3 Manual Slide Review Abnormal smear D-Dimer, Quantitative 0.38 (0.19-0.50) mg/L Puncture Site ABG pH (7.35-7.45) ABG pCO2 (35.0-45.0) mmHg ABG pO2 (80.0-100.0) mmHg ABG HCO3 (22.0-26.0) meq/L ABG O2 Saturation (96.0-97.0) % ABG Base Excess (-2-2.0) Ramu Test O2 Delivery Device Oxygen Flow Rate Sodium 137 (136-145) mEq/L Potassium 4.0 (3.5-5.1) mEq/L Chloride 98 (98-107) mEq/L Carbon Dioxide 29 (21-32) mEq/L Anion Gap 14.0 (5-15) BUN 24 H (7-18) mg/dL Creatinine 1.1 (0.7-1.3) mg/dL Est Cr Clr Drug Dosing 64.57 mL/min Estimated GFR (MDRD) > 60 (>60) mL/min BUN/Creatinine Ratio 21.8 H (14-18) Glucose 157 H (70-99) mg/dL POC Glucose (70-99) mg/dL Lactic Acid (0.4-2.0) mmol/L Calcium 8.4 L (8.5-10.1) mg/dL Magnesium 2.0 (1.8-2.4) mg/dL Total Bilirubin 0.7 (0.2-1.0) mg/dL AST 73 H (15-37) U/L ALT 66 H (16-63) U/L Alkaline Phosphatase 39 L (46-116) U/L Troponin I (0.00-0.056) ng/mL C-Reactive Protein 6.0 H* (<1.0) mg/dL NT-Pro-B Natriuret Pep (0-450) pg/mL Total Protein 7.3 (6.4-8.2) g/dl Albumin 3.2 L (3.4-5.0) g/dl Globulin 4.1 gm/dL Albumin/Globulin Ratio 0.8 L (1-2) 11/16/20 11/16/20 Range/Units 06:08 06:52 WBC (4.23-9.07) K/mm3 RBC (4.63-6.08) M/mm3 Hgb (13.7-17.5) gm/dl Hct (40.1-51.0) % MCV (79.0-92.2) fl MCH (25.7-32.2) pg MCHC (32.2-35.5) g/dl RDW Std Deviation (35.1-43.9) fL Plt Count (163-337) K/mm3 MPV (9.4-12.3) fl Neut % (Auto) (34.0-67.9) % Lymph % (Auto) (21.8-53.1) % [place] % (Auto) (5.3-12.2) % Eos % (Auto) (0.8-7.0) Baso % (Auto) (0.1-1.2) % Neut # (Auto) (1.78-5.38) K/mm3 Lymph # (Auto) (1.32-3.57) K/mm3 [place] # (Auto) (0.30-0.82) K/mm3 Eos # (Auto) (0.04-0.54) K/mm3 Baso # (Auto) (0.01-0.08) K/mm3 Manual Slide Review D-Dimer, Quantitative (0.19-0.50) mg/L Puncture Site ABG pH (7.35-7.45) ABG pCO2 (35.0-45.0) mmHg ABG pO2 (80.0-100.0) mmHg ABG HCO3 (22.0-26.0) meq/L ABG O2 Saturation (96.0-97.0) % ABG Base Excess (-2-2.0) Ramu Test O2 Delivery Device Oxygen Flow Rate Sodium (136-145) mEq/L Potassium (3.5-5.1) mEq/L Chloride (98-107) mEq/L Carbon Dioxide (21-32) mEq/L Anion Gap (5-15) BUN (7-18) mg/dL Creatinine (0.7-1.3) mg/dL Est Cr Clr Drug Dosing mL/min Estimated GFR (MDRD) (>60) mL/min BUN/Creatinine Ratio (14-18) Glucose (70-99) mg/dL POC Glucose 147 H (70-99) mg/dL Lactic Acid 1.7 (0.4-2.0) mmol/L Calcium (8.5-10.1) mg/dL Magnesium (1.8-2.4) mg/dL Total Bilirubin (0.2-1.0) mg/dL AST (15-37) U/L ALT (16-63) U/L Alkaline Phosphatase (46-116) U/L Troponin I (0.00-0.056) ng/mL C-Reactive Protein (<1.0) mg/dL NT-Pro-B Natriuret Pep (0-450) pg/mL Total Protein (6.4-8.2) g/dl Albumin (3.4-5.0) g/dl Globulin gm/dL Albumin/Globulin Ratio (1-2) Result Diagrams: 11/16/20 06:08 11/16/20 06:08 Sepsis Event Note - Focused Exam Vital Signs: Vital Signs Temp Pulse Resp BP Pulse Ox Pulse Ox 11/16/20 10:05 93 L 11/16/20 10:00 23 H 11/16/20 09:49 93 L 11/16/20 09:00 22 H 11/16/20 08:51 73 88 L 11/16/20 08:50 97.5 F 62 24 H 93/61 87 L 11/16/20 08:00 21 H 11/16/20 07:00 24 H 11/16/20 06:48 98.1 F 72 20 109/58 L 93 L 11/16/20 06:00 19 11/16/20 05:00 23 H 11/16/20 04:00 19 11/16/20 03:00 19 11/16/20 02:00 19 11/16/20 01:00 19 - My Orders Last 24 Hours: My Active Orders 11/15/20 15:55 PROCALCITONIN [REF] Stat 11/15/20 17:17 Cardiac Monitoring [RC] . DIRECTED Oxygen Therapy [RC] ASDIRECTED RT Incentive Spirometry [RC] ASDIRECTED Vital Signs [RC] 04,10,16,22 Acetaminophen [TylenoL] 650 mg PO Q4H PRN Albuterol/Ipratropium [DuoNeb 3.0-0.5 MG/3 ML] 3 ml NEB QIDRT PRN Docusate Sodium [Colace] 100 mg PO Q12H PRN Ondansetron [Zofran ODT] 4 mg PO Q4H PRN Temazepam [Restoril] 7.5 mg PO BEDTIME PRN Isolation [COMM] Stat RT Acapella [RESPCARE] Routine Resuscitation Status Routine 11/15/20 17:18 Patient Status [ADT] Routine Pulse Oximetry [RC] CONTINUOUS 11/15/20 17:21 RT Aerosol Therapy [RC] ASDIRECTED OT Evaluation and Treatment [CONS] Routine PT Evaluation and Treatment [CONS] Routine 11/15/20 17:22 Positioning, Patient [RC] BID 11/15/20 17:30 Heparin Sodium 7,500 units SUBCUT Q8H 11/15/20 17:34 hydrALAZINE [Apresoline] 10 mg IVPUSH Q4H PRN 11/15/20 21:00 guaiFENesin [Mucinex] 600 mg PO BID 11/15/20 22:00 Insulin Lispro [HumaLOG] See Protocol SUBCUT QIDACANDBED 11/16/20 09:00 Cholecalciferol (Vitamin D3) [Vitamin D3] 25 mcg PO DAILY Famotidine [Pepcid] 20 mg PO DAILY Finasteride [Proscar] 5 mg PO DAILY Tamsulosin [Flomax] 0.4 mg PO DAILY allopurinoL [Zyloprim] 150 mg PO DAILY amLODIPine [Norvasc] 5 mg PO DAILY 11/16/20 21:00 Remdesivir 100 mg Sodium Chloride 0.9% [Normal Saline] 100 ml IV Q24H 11/17/20 05:11 C-REACTIVE PROTEIN [CHEM] AM CBC WITH AUTO DIFF [HEME] AM COMPREHENSIVE METABOLIC PN,CMP [CHEM] AM 11/18/20 05:11 C-REACTIVE PROTEIN [CHEM] AM CBC WITH AUTO DIFF [HEME] AM COMPREHENSIVE METABOLIC PN,CMP [CHEM] AM 11/19/20 05:11 C-REACTIVE PROTEIN [CHEM] AM CBC WITH AUTO DIFF [HEME] AM COMPREHENSIVE METABOLIC PN,CMP [CHEM] AM - Plan Plan:: Patient has been seen and examined, agree with assessment and plan. ABDominal: Soft nontender cvs: [id number] rESP: Crackles lower b/l Ext- no edema
[2020-11-16] MEDS ORDERED: Albuterol 6.7 GM Inhaler INH PRN (11:25)
[2020-11-16] MEDS ORDERED: Enoxaparin 40 MG/0.4 ML Syringe SUBCUT SCH (11:30)
[2020-11-16] MEDS: REMDESIVIR 100 MG in Sodium Chloride 0.9% 100 ML IV SCH (21:04)
[2020-11-17] MEDS: Heparin Sodium 5,000 Units/ML Vial SUBCUT SCH ×3 (01:38→17:38)
--- NOTE | 2020-11-17 07:15 | PCM.PN ---
- General Info Date of Service: 11/17/20 Admission Dx/Problem (Free Text): Admission Diagnosis/Problem Admission Diagnosis/Problem covid Pneumonia Functional Status: Reports: Pain Controlled, Tolerating Diet, Ambulating, Urinating, Incentive Spirometry, Other (Acapella ). Denies: New Symptoms - Review of Systems General: Reports: Weakness. Denies: Fever, Fatigue, Malaise, Chills HEENT: Reports: No Symptoms. Denies: Headaches, Sore Throat Pulmonary: Reports: Shortness of Breath, Cough, Sputum. Denies: Pleuritic Chest Pain, Wheezing Cardiovascular: Reports: No Symptoms Gastrointestinal: Reports: No Symptoms. Denies: Abdominal Pain, Constipation, Decreased Appetite, Diarrhea, Nausea, Vomiting Genitourinary: Reports: No Symptoms. Denies: Pain Musculoskeletal: Reports: No Symptoms Skin: Reports: No Symptoms. Denies: Cyanosis Neurological: Reports: No Symptoms. Denies: Confusion, Dizziness, Headache, Numbness, Pre-Existing Deficit, Syncope, Tingling, Difficulty Walking, Weakness, Gait Disturbance Psychiatric: Reports: No Symptoms - Patient Data Vitals - Most Recent: Last Vital Signs Temp 98.1 F 11/16/20 21:11 Pulse 47 L 11/16/20 21:11 Resp 18 11/16/20 21:11 BP 129/92 H 11/16/20 21:11 Pulse Ox 93 L 11/17/20 06:12 Weight - Most Recent: 186 lb 3.2 oz I&O - Last 24 Hours: Intake & Output 11/16/20 11/17/20 11/17/20 22:59 06:59 14:59 Intake Total 300 900 Balance 300 900 Lab Results Last 24 Hours: Laboratory Results - last 24 hr 11/15/20 11/16/20 11/16/20 Range/Units 15:55 06:08 06:08 WBC (4.23-9.07) K/mm3 RBC (4.63-6.08) M/mm3 Hgb (13.7-17.5) gm/dl Hct (40.1-51.0) % MCV (79.0-92.2) fl MCH (25.7-32.2) pg MCHC (32.2-35.5) g/dl RDW Std Deviation (35.1-43.9) fL Plt Count (163-337) K/mm3 MPV (9.4-12.3) fl Neut % (Auto) (34.0-67.9) % Lymph % (Auto) (21.8-53.1) % [place] % (Auto) (5.3-12.2) % Eos % (Auto) (0.8-7.0) Baso % (Auto) (0.1-1.2) % Neut # (Auto) (1.78-5.38) K/mm3 Lymph # (Auto) (1.32-3.57) K/mm3 [place] # (Auto) (0.30-0.82) K/mm3 Eos # (Auto) (0.04-0.54) K/mm3 Baso # (Auto) (0.01-0.08) K/mm3 Manual Slide Review Abnormal smear D-Dimer, Quantitative 0.38 (0.19-0.50) mg/L Sodium (136-145) mEq/L Potassium (3.5-5.1) mEq/L Chloride (98-107) mEq/L Carbon Dioxide (21-32) mEq/L Anion Gap (5-15) BUN (7-18) mg/dL Creatinine (0.7-1.3) mg/dL Est Cr Clr Drug Dosing mL/min Estimated GFR (MDRD) (>60) mL/min BUN/Creatinine Ratio (14-18) Glucose (70-99) mg/dL POC Glucose (70-99) mg/dL Calcium (8.5-10.1) mg/dL Total Bilirubin (0.2-1.0) mg/dL AST (15-37) U/L ALT (16-63) U/L Alkaline Phosphatase (46-116) U/L C-Reactive Protein (<1.0) mg/dL Total Protein (6.4-8.2) g/dl Albumin (3.4-5.0) g/dl Globulin gm/dL Albumin/Globulin Ratio (1-2) Procalcitonin 0.19 H ng/mL 11/16/20 11/16/20 11/16/20 Range/Units 06:52 11:31 16:58 WBC (4.23-9.07) K/mm3 RBC (4.63-6.08) M/mm3 Hgb (13.7-17.5) gm/dl Hct (40.1-51.0) % MCV (79.0-92.2) fl MCH (25.7-32.2) pg MCHC (32.2-35.5) g/dl RDW Std Deviation (35.1-43.9) fL Plt Count (163-337) K/mm3 MPV (9.4-12.3) fl Neut % (Auto) (34.0-67.9) % Lymph % (Auto) (21.8-53.1) % [place] % (Auto) (5.3-12.2) % Eos % (Auto) (0.8-7.0) Baso % (Auto) (0.1-1.2) % Neut # (Auto) (1.78-5.38) K/mm3 Lymph # (Auto) (1.32-3.57) K/mm3 [place] # (Auto) (0.30-0.82) K/mm3 Eos # (Auto) (0.04-0.54) K/mm3 Baso # (Auto) (0.01-0.08) K/mm3 Manual Slide Review D-Dimer, Quantitative (0.19-0.50) mg/L Sodium (136-145) mEq/L Potassium (3.5-5.1) mEq/L Chloride (98-107) mEq/L Carbon Dioxide (21-32) mEq/L Anion Gap (5-15) BUN (7-18) mg/dL Creatinine (0.7-1.3) mg/dL Est Cr Clr Drug Dosing mL/min Estimated GFR (MDRD) (>60) mL/min BUN/Creatinine Ratio (14-18) Glucose (70-99) mg/dL POC Glucose 147 H 154 H 206 H (70-99) mg/dL Calcium (8.5-10.1) mg/dL Total Bilirubin (0.2-1.0) mg/dL AST (15-37) U/L ALT (16-63) U/L Alkaline Phosphatase (46-116) U/L C-Reactive Protein (<1.0) mg/dL Total Protein (6.4-8.2) g/dl Albumin (3.4-5.0) g/dl Globulin gm/dL Albumin/Globulin Ratio (1-2) Procalcitonin ng/mL 11/16/20 11/17/20 11/17/20 Range/Units 20:53 04:52 04:52 WBC 3.14 L (4.23-9.07) K/mm3 RBC 4.94 (4.63-6.08) M/mm3 Hgb 14.2 (13.7-17.5) gm/dl Hct 42.5 (40.1-51.0) % MCV 86.0 (79.0-92.2) fl MCH 28.7 (25.7-32.2) pg MCHC 33.4 (32.2-35.5) g/dl RDW Std Deviation 36.6 (35.1-43.9) fL Plt Count 139 L (163-337) K/mm3 MPV 10.6 (9.4-12.3) fl Neut % (Auto) 59.2 (34.0-67.9) % Lymph % (Auto) 25.2 (21.8-53.1) % [place] % (Auto) 15.0 H (5.3-12.2) % Eos % (Auto) 0 L (0.8-7.0) Baso % (Auto) 0.3 (0.1-1.2) % Neut # (Auto) 1.86 (1.78-5.38) K/mm3 Lymph # (Auto) 0.79 L (1.32-3.57) K/mm3 [place] # (Auto) 0.47 (0.30-0.82) K/mm3 Eos # (Auto) 0.00 L (0.04-0.54) K/mm3 Baso # (Auto) 0.01 (0.01-0.08) K/mm3 Manual Slide Review D-Dimer, Quantitative (0.19-0.50) mg/L Sodium 138 (136-145) mEq/L Potassium 3.7 (3.5-5.1) mEq/L Chloride 101 (98-107) mEq/L Carbon Dioxide 27 (21-32) mEq/L Anion Gap 13.7 (5-15) BUN 29 H (7-18) mg/dL Creatinine 1.0 (0.7-1.3) mg/dL Est Cr Clr Drug Dosing 71.02 mL/min Estimated GFR (MDRD) > 60 (>60) mL/min BUN/Creatinine Ratio 29.0 H (14-18) Glucose 168 H (70-99) mg/dL POC Glucose 149 H (70-99) mg/dL Calcium 8.4 L (8.5-10.1) mg/dL Total Bilirubin 0.5 (0.2-1.0) mg/dL AST 55 H (15-37) U/L ALT 55 (16-63) U/L Alkaline Phosphatase 40 L (46-116) U/L C-Reactive Protein 2.6 H* (<1.0) mg/dL Total Protein 6.5 (6.4-8.2) g/dl Albumin 2.8 L (3.4-5.0) g/dl Globulin 3.7 gm/dL Albumin/Globulin Ratio 0.8 L (1-2) Procalcitonin ng/mL 11/17/20 Range/Units 06:11 WBC (4.23-9.07) K/mm3 RBC (4.63-6.08) M/mm3 Hgb (13.7-17.5) gm/dl Hct (40.1-51.0) % MCV (79.0-92.2) fl MCH (25.7-32.2) pg MCHC (32.2-35.5) g/dl RDW Std Deviation (35.1-43.9) fL Plt Count (163-337) K/mm3 MPV (9.4-12.3) fl Neut % (Auto) (34.0-67.9) % Lymph % (Auto) (21.8-53.1) % [place] % (Auto) (5.3-12.2) % Eos % (Auto) (0.8-7.0) Baso % (Auto) (0.1-1.2) % Neut # (Auto) (1.78-5.38) K/mm3 Lymph # (Auto) (1.32-3.57) K/mm3 [place] # (Auto) (0.30-0.82) K/mm3 Eos # (Auto) (0.04-0.54) K/mm3 Baso # (Auto) (0.01-0.08) K/mm3 Manual Slide Review D-Dimer, Quantitative (0.19-0.50) mg/L Sodium (136-145) mEq/L Potassium (3.5-5.1) mEq/L Chloride (98-107) mEq/L Carbon Dioxide (21-32) mEq/L Anion Gap (5-15) BUN (7-18) mg/dL Creatinine (0.7-1.3) mg/dL Est Cr Clr Drug Dosing mL/min Estimated GFR (MDRD) (>60) mL/min BUN/Creatinine Ratio (14-18) Glucose (70-99) mg/dL POC Glucose 154 H (70-99) mg/dL Calcium (8.5-10.1) mg/dL Total Bilirubin (0.2-1.0) mg/dL AST (15-37) U/L ALT (16-63) U/L Alkaline Phosphatase (46-116) U/L C-Reactive Protein (<1.0) mg/dL Total Protein (6.4-8.2) g/dl Albumin (3.4-5.0) g/dl Globulin gm/dL Albumin/Globulin Ratio (1-2) Procalcitonin ng/mL Med Orders - Current: Current Medications Acetaminophen (Acetaminophen 325 Mg Tab) 650 mg PO Q4H PRN PRN Reason: Pain (Mild 1-3)/fever Last Admin: 11/16/20 21:04 Dose: 650 mg Documented by: Albuterol (Albuterol 6.7 Gm Inhaler) 0 gm INH Q2H PRN PRN Reason: SOB/Wheezing Albuterol/Ipratropium (Albuterol/Ipratropium 3.0-0.5 Mg/3 Ml Neb Soln) 3 ml NEB QIDRT PRN PRN Reason: Shortness Of Breath/wheezing Allopurinol (Allopurinol 300 Mg Tab) 150 mg PO DAILY [facility] Last Admin: 11/16/20 08:52 Dose: 150 mg Documented by: Amlodipine Besylate (Amlodipine 5 Mg Tab) 5 mg PO DAILY [facility] Last Admin: 11/16/20 08:50 Dose: 5 mg Documented by: Cholecalciferol (Cholecalciferol (Vitamin D3) 25 Mcg Tab) 25 mcg PO DAILY [facility] Last Admin: 11/16/20 08:54 Dose: 25 mcg Documented by: Dexamethasone (Dexamethasone 4 Mg Tab) 6 mg PO DAILY [facility] Stop: 11/24/20 09:01 Last Admin: 11/16/20 08:49 Dose: 6 mg Documented by: Docusate Sodium (Docusate Sodium 100 Mg Cap) 100 mg PO Q12H PRN PRN Reason: Constipation Famotidine (Famotidine 20 Mg Tab) 20 mg PO DAILY [facility] Last Admin: 11/16/20 08:54 Dose: 20 mg Documented by: Finasteride (Finasteride 5 Mg Tab) 5 mg PO DAILY [facility] Last Admin: 11/16/20 08:54 Dose: 5 mg Documented by: Guaifenesin (Guaifenesin 600 Mg Tab.Er) 600 mg PO BID [facility] Last Admin: 11/16/20 21:04 Dose: 600 mg Documented by: Heparin Sodium (Porcine) (Heparin Sodium 5,000 Units/Ml Vial) 7,500 units SUBCUT Q8H [facility] Last Admin: 11/17/20 01:38 Dose: 7,500 units Documented by: Hydralazine HCl (Hydralazine 20 Mg/Ml Sdv) 10 mg IVPUSH Q4H PRN PRN Reason: Hypertension Remdesivir 100 mg/ Sodium (Chloride) 100 mls @ 100 mls/hr IV Q24H [facility] Stop: 11/19/20 21:59 Last Admin: 11/16/20 21:04 Dose: 100 mls/hr Documented by: Insulin Human Lispro (Insulin Lispro 100 Unit/Ml 10 Ml Vial) 0 unit SUBCUT QIDACANDBED [facility]; Protocol Last Admin: 11/16/20 21:19 Dose: Not Given Documented by: Ondansetron HCl (Ondansetron 4 Mg Tab.Dis) 4 mg PO Q4H PRN PRN Reason: nausea, able to take PO Sodium Chloride (Sodium Chloride 0.9% 10 Ml Syringe) 10 ml FLUSH ASDIRECTED PRN PRN Reason: Keep Vein Open Last Admin: 11/15/20 17:05 Dose: 10 ml Documented by: Tamsulosin HCl (Tamsulosin 0.4 Mg Cap.Er) 0.4 mg PO DAILY [facility] Last Admin: 11/16/20 08:52 Dose: 0.4 mg Documented by: Temazepam (Temazepam 7.5 Mg Cap) 7.5 mg PO BEDTIME PRN PRN Reason: Sleep Discontinued Medications Dexamethasone (Dexamethasone 4 Mg Tab) 6 mg PO ONETIME ONE Stop: 11/15/20 16:47 Last Admin: 11/15/20 17:06 Dose: 6 mg Documented by: Dexamethasone (Dexamethasone 10 Mg/Ml Sdv) 6 mg IVPUSH DAILY [facility] Stop: 11/25/20 09:01 Enoxaparin Sodium (Enoxaparin 40 Mg/0.4 Ml Syringe) 40 mg SUBCUT DAILY [facility] Remdesivir 200 mg/ Sodium (Chloride) 250 mls @ 250 mls/hr IV ONETIME ONE Stop: 11/15/20 17:18 Last Admin: 11/15/20 20:21 Dose: 250 mls/hr Documented by: Remdesivir 100 mg/ Sodium (Chloride) 100 mls @ 100 mls/hr IV Q24H [facility] Stop: 11/20/20 18:29 Remdesivir 200 mg/ Sodium (Chloride) 250 mls @ 250 mls/hr IV ONETIME ONE Stop: 11/15/20 21:59 Last Admin: 11/15/20 20:38 Dose: Not Given Documented by: Ketorolac Tromethamine (Ketorolac 30 Mg/Ml Sdv) 30 mg IVPUSH ONETIME ONE Stop: 11/15/20 16:48 Last Admin: 11/15/20 17:06 Dose: 30 mg Documented by: Metformin HCl (Metformin 500 Mg Tab) 500 mg PO BID [facility] Last Admin: 11/16/20 08:52 Dose: 500 mg Documented by: - Exam Quality Assessment: Supplemental Oxygen (1.5L), DVT Prophylaxis. No: Urine Catheter General: Alert, Oriented, Cooperative, No Acute Distress HEENT: Pupils Equal, Pupils Reactive, Mucous Membr. Moist/[place] Neck: Supple, Trachea Midline Lungs: Normal Respiratory Effort, Decreased Breath Sounds, Crackles. No: Wheezing Cardiovascular: Regular Rate, Regular Rhythm GI/Abdominal Exam: Normal Bowel Sounds, Soft, Non-Tender, No Distention (Male) Exam: Deferred Back Exam: Normal Inspection, Full Range of Motion Extremities: Normal Inspection, Normal Range of Motion, Non-Tender, No Pedal Edema, Normal Capillary Refill Peripheral Pulses: 2+: Radial (L), Radial (R) Skin: Warm, Dry, Intact Neurological: No New Focal Deficit Psy/Mental Status: Alert, Normal Affect, Normal Mood - Patient Data Lab Results Last 24 hrs: Laboratory Results - last 24 hr 1011/16/20 11/16/20 Range/Units 15:55 06:08 06:08 WBC (4.23-9.07) K/mm3 RBC (4.63-6.08) M/mm3 Hgb (13.7-17.5) gm/dl Hct (40.1-51.0) % MCV (79.0-92.2) fl MCH (25.7-32.2) pg MCHC (32.2-35.5) g/dl RDW Std Deviation (35.1-43.9) fL Plt Count (163-337) K/mm3 MPV (9.4-12.3) fl Neut % (Auto) (34.0-67.9) % Lymph % (Auto) (21.8-53.1) % [place] % (Auto) (5.3-12.2) % Eos % (Auto) (0.8-7.0) Baso % (Auto) (0.1-1.2) % Neut # (Auto) (1.78-5.38) K/mm3 Lymph # (Auto) (1.32-3.57) K/mm3 [place] # (Auto) (0.30-0.82) K/mm3 Eos # (Auto) (0.04-0.54) K/mm3 Baso # (Auto) (0.01-0.08) K/mm3 Manual Slide Review Abnormal smear D-Dimer, Quantitative 0.38 (0.19-0.50) mg/L Sodium (136-145) mEq/L Potassium (3.5-5.1) mEq/L Chloride (98-107) mEq/L Carbon Dioxide (21-32) mEq/L Anion Gap (5-15) BUN (7-18) mg/dL Creatinine (0.7-1.3) mg/dL Est Cr Clr Drug Dosing mL/min Estimated GFR (MDRD) (>60) mL/min BUN/Creatinine Ratio (14-18) Glucose (70-99) mg/dL POC Glucose (70-99) mg/dL Calcium (8.5-10.1) mg/dL Total Bilirubin (0.2-1.0) mg/dL AST (15-37) U/L ALT (16-63) U/L Alkaline Phosphatase (46-116) U/L C-Reactive Protein (<1.0) mg/dL Total Protein (6.4-8.2) g/dl Albumin (3.4-5.0) g/dl Globulin gm/dL Albumin/Globulin Ratio (1-2) Procalcitonin 0.19 H ng/mL 11/16/20 11/16/20 11/16/20 Range/Units 06:52 11:31 16:58 WBC (4.23-9.07) K/mm3 RBC (4.63-6.08) M/mm3 Hgb (13.7-17.5) gm/dl Hct (40.1-51.0) % MCV (79.0-92.2) fl MCH (25.7-32.2) pg MCHC (32.2-35.5) g/dl RDW Std Deviation (35.1-43.9) fL Plt Count (163-337) K/mm3 MPV (9.4-12.3) fl Neut % (Auto) (34.0-67.9) % Lymph % (Auto) (21.8-53.1) % [place] % (Auto) (5.3-12.2) % Eos % (Auto) (0.8-7.0) Baso % (Auto) (0.1-1.2) % Neut # (Auto) (1.78-5.38) K/mm3 Lymph # (Auto) (1.32-3.57) K/mm3 [place] # (Auto) (0.30-0.82) K/mm3 Eos # (Auto) (0.04-0.54) K/mm3 Baso # (Auto) (0.01-0.08) K/mm3 Manual Slide Review D-Dimer, Quantitative (0.19-0.50) mg/L Sodium (136-145) mEq/L Potassium (3.5-5.1) mEq/L Chloride (98-107) mEq/L Carbon Dioxide (21-32) mEq/L Anion Gap (5-15) BUN (7-18) mg/dL Creatinine (0.7-1.3) mg/dL Est Cr Clr Drug Dosing mL/min Estimated GFR (MDRD) (>60) mL/min BUN/Creatinine Ratio (14-18) Glucose (70-99) mg/dL POC Glucose 147 H 154 H 206 H (70-99) mg/dL Calcium (8.5-10.1) mg/dL Total Bilirubin (0.2-1.0) mg/dL AST (15-37) U/L ALT (16-63) U/L Alkaline Phosphatase (46-116) U/L C-Reactive Protein (<1.0) mg/dL Total Protein (6.4-8.2) g/dl Albumin (3.4-5.0) g/dl Globulin gm/dL Albumin/Globulin Ratio (1-2) Procalcitonin ng/mL 11/16/20 11/17/20 11/17/20 Range/Units 20:53 04:52 04:52 WBC 3.14 L (4.23-9.07) K/mm3 RBC 4.94 (4.63-6.08) M/mm3 Hgb 14.2 (13.7-17.5) gm/dl Hct 42.5 (40.1-51.0) % MCV 86.0 (79.0-92.2) fl MCH 28.7 (25.7-32.2) pg MCHC 33.4 (32.2-35.5) g/dl RDW Std Deviation 36.6 (35.1-43.9) fL Plt Count 139 L (163-337) K/mm3 MPV 10.6 (9.4-12.3) fl Neut % (Auto) 59.2 (34.0-67.9) % Lymph % (Auto) 25.2 (21.8-53.1) % [place] % (Auto) 15.0 H (5.3-12.2) % Eos % (Auto) 0 L (0.8-7.0) Baso % (Auto) 0.3 (0.1-1.2) % Neut # (Auto) 1.86 (1.78-5.38) K/mm3 Lymph # (Auto) 0.79 L (1.32-3.57) K/mm3 [place] # (Auto) 0.47 (0.30-0.82) K/mm3 Eos # (Auto) 0.00 L (0.04-0.54) K/mm3 Baso # (Auto) 0.01 (0.01-0.08) K/mm3 Manual Slide Review D-Dimer, Quantitative (0.19-0.50) mg/L Sodium 138 (136-145) mEq/L Potassium 3.7 (3.5-5.1) mEq/L Chloride 101 (98-107) mEq/L Carbon Dioxide 27 (21-32) mEq/L Anion Gap 13.7 (5-15) BUN 29 H (7-18) mg/dL Creatinine 1.0 (0.7-1.3) mg/dL Est Cr Clr Drug Dosing 71.02 mL/min Estimated GFR (MDRD) > 60 (>60) mL/min BUN/Creatinine Ratio 29.0 H (14-18) Glucose 168 H (70-99) mg/dL POC Glucose 149 H (70-99) mg/dL Calcium 8.4 L (8.5-10.1) mg/dL Total Bilirubin 0.5 (0.2-1.0) mg/dL AST 55 H (15-37) U/L ALT 55 (16-63) U/L Alkaline Phosphatase 40 L (46-116) U/L C-Reactive Protein 2.6 H* (<1.0) mg/dL Total Protein 6.5 (6.4-8.2) g/dl Albumin 2.8 L (3.4-5.0) g/dl Globulin 3.7 gm/dL Albumin/Globulin Ratio 0.8 L (1-2) Procalcitonin ng/mL 11/17/20 Range/Units 06:11 WBC (4.23-9.07) K/mm3 RBC (4.63-6.08) M/mm3 Hgb (13.7-17.5) gm/dl Hct (40.1-51.0) % MCV (79.0-92.2) fl MCH (25.7-32.2) pg MCHC (32.2-35.5) g/dl RDW Std Deviation (35.1-43.9) fL Plt Count (163-337) K/mm3 MPV (9.4-12.3) fl Neut % (Auto) (34.0-67.9) % Lymph % (Auto) (21.8-53.1) % [place] % (Auto) (5.3-12.2) % Eos % (Auto) (0.8-7.0) Baso % (Auto) (0.1-1.2) % Neut # (Auto) (1.78-5.38) K/mm3 Lymph # (Auto) (1.32-3.57) K/mm3 [place] # (Auto) (0.30-0.82) K/mm3 Eos # (Auto) (0.04-0.54) K/mm3 Baso # (Auto) (0.01-0.08) K/mm3 Manual Slide Review D-Dimer, Quantitative (0.19-0.50) mg/L Sodium (136-145) mEq/L Potassium (3.5-5.1) mEq/L Chloride (98-107) mEq/L Carbon Dioxide (21-32) mEq/L Anion Gap (5-15) BUN (7-18) mg/dL Creatinine (0.7-1.3) mg/dL Est Cr Clr Drug Dosing mL/min Estimated GFR (MDRD) (>60) mL/min BUN/Creatinine Ratio (14-18) Glucose (70-99) mg/dL POC Glucose 154 H (70-99) mg/dL Calcium (8.5-10.1) mg/dL Total Bilirubin (0.2-1.0) mg/dL AST (15-37) U/L ALT (16-63) U/L Alkaline Phosphatase (46-116) U/L C-Reactive Protein (<1.0) mg/dL Total Protein (6.4-8.2) g/dl Albumin (3.4-5.0) g/dl Globulin gm/dL Albumin/Globulin Ratio (1-2) Procalcitonin ng/mL Result Diagrams: 11/17/20 04:52 11/17/20 04:52 Sepsis Event Note - Evaluation Sepsis Screening Result: No Definite Risk - Focused Exam Vital Signs: Vital Signs Temp Pulse Resp BP Pulse Ox Pulse Ox 11/17/20 06:12 93 L 11/16/20 21:11 98.1 F 47 L 18 129/92 H 93 L 11/16/20 20:00 91 L - Problem List & Annotations (1) Type II diabetes mellitus SNOMED Code(s): 13315397 Code(s): E11.9 - TYPE 2 DIABETES MELLITUS WITHOUT COMPLICATIONS Status: Chronic Priority: Medium Current Visit: Yes Qualifiers: Diabetes mellitus snf insulin use: without equipment operator intermodal yard use Diabetes mellitus complication status: without complication Qualified Code(s): E11.9 - Type 2 diabetes mellitus without complications (2) [place] (hard of hearing) SNOMED Code(s): 45128182 Code(s): H91.90 - UNSPECIFIED HEARING LOSS, UNSPECIFIED EAR Status: Chronic Priority: Low Current Visit: No Qualifiers: Hearing loss type: unspecified Laterality: unspecified laterality Qualified Code(s): H91.90 - Unspecified hearing loss, unspecified ear (3) Hypoxia SNOMED Code(s): 454583630 Code(s): R09.02 - HYPOXEMIA Status: Acute Priority: High Current Visit: Yes (4) Pneumonia due to COVID-19 virus SNOMED Code(s): 535913054215622673 Code(s): U07.1 - COVID-19; J12.82 - PNEUMONIA DUE TO CORONAVIRUS DISEASE 2018 Status: Acute Priority: High Current Visit: Yes (5) HTN (hypertension) SNOMED Code(s): 22772280 Code(s): I10 - ESSENTIAL (PRIMARY) HYPERTENSION Status: Chronic Priority: Low Current Visit: No Qualifiers: Hypertension type: unspecified Qualified Code(s): I10 - Essential (primary) hypertension (6) GERD (gastroesophageal reflux disease) SNOMED Code(s): 912392224 Code(s): K21.9 - GASTRO-ESOPHAGEAL REFLUX DISEASE WITHOUT ESOPHAGITIS Status: Chronic Priority: Low Current Visit: No Qualifiers: Esophagitis presence: esophagitis presence not specified Qualified Code(s): K21.9 - Gastro-esophageal reflux disease without esophagitis (7) BPH (benign prostatic hyperplasia) SNOMED Code(s): 519145760 Code(s): N40.0 - BENIGN PROSTATIC HYPERPLASIA WITHOUT LOWER URINRY TRACT SYMP Status: Chronic Priority: Low Current Visit: No Qualifiers: Lower urinary tract symptom presence: unspecified whether lower urinary tract symptoms present Qualified Code(s): N40.0 - Benign prostatic hyperplasia without lower urinary tract symptoms (8) Neutropenia SNOMED Code(s): 932352867 Code(s): D70.9 - NEUTROPENIA, UNSPECIFIED Status: Chronic Priority: Medium Current Visit: Yes Qualifiers: Neutropenia type: due to infection Qualified Code(s): D70.3 - Neutropenia due to infection - Problem List Review Problem List Initiated/Reviewed/Updated: Yes - My Orders Last 24 Hours: My Active Orders 11/16/20 07:18 Up With Assistance [RC] ASDIRECTED 11/16/20 09:00 dexAMETHasone 6 mg PO DAILY 11/16/20 10:35 Consult to Respiratory Therapy [Respiratory Care Assess and Treatment] [CONS] Routine 11/16/20 10:36 Blood Glucose Check, Bedside [RC] QIDACANDBED 11/16/20 11:25 Albuterol [Proventil HFA] See Dose Instructions INH Q2H PRN 11/16/20 Dinner Consistent Carbohydrate Diet [DIET] 11/18/20 05:11 DD [D-DIMER QUANTITATIVE] [COAG] AM 11/19/20 05:11 DD [D-DIMER QUANTITATIVE] [COAG] AM 11/20/20 05:11 DD [D-DIMER QUANTITATIVE] [COAG] AM - Assessment Assessment:: 11/15/2020 #1. Covid pneumonia-patient is now starting to have hypoxia at 84% after 8 days of illness. The patient is continuing now with worsening symptoms of fever chills nausea vomiting malaise and fatigue. Found to have an elevated D-dimer. Hydration, left infiltrates, mild cardiac strain, and will be started on re mdesivir, procalcitonin has been ordered and we will hold antibiotics at this time. We will continue with the dexamethasone that was ordered and started in the ER. We will continue with duo nebs, Mucinex, continuous pulse ox, RT therapy. #2. Diabetes-continue home dose metformin. Sliding scale insulin 3. GERD-continue famotidine 4. Gout-continue allopurinol 5. BPH-continue Proscar 6. Hard of hearing 7. History of hypertension-as needed hydralazine Time 80 minute Anticipate 2 midnight stay but less than 96 hours. 11/16/2020 This is a 75-year-old male admitted to the floor for COVID-19 pneumonia treatment. Patient remains weak with a cough and shortness of breath. WBC today is down to 1.77. Hemoglobin is 15.5. Platelets are low at 114,000 but this is improved over yesterday. D-dimer today was down to 0.38. Sodium 137. Potassium 4.0. Chloride 98. Carbon dioxide 29. Anion gap is 14.0. BUN is 24. Creatinine 1.1. GFR Alpha 60. Blood glucose readings have been 10 9-1 57. Lactic acid is 1.7. Calcium is 8.4. Magnesium 2.0. Total bilirubin 0.7. AST 73, ALT 66, alkaline phosphatase 39. We'll continue to monitor these as patient is on remdesivir. CRP is up to 6.0. Albumin is 3.2. Patient remains on oxygen and is down to 1.5 L. He has been proning and utilizing his incentive spirometer. Unfortunately our facility is out of [facility]. He'll remain hospitalized. Unknown length of stay pending continued improvement. 11/17/2020 This is a 75-year-old male mated to the floor for hypoxia secondary to Covid. He remains on 1.5 L with saturations in the low 90s. Labs today show improvement in his WBC to 3.14. Hemoglobin is 14.2. Platelet improved to 139,000. Neutrophils are normal at 59.2. Sodium 138. Potassium 3.7. Carbon dioxide 27. Anion gap 13.7. BUN is 29. Creatinine 1.0. GFR greater than 60. Blood glucose readings have been 1 49-2 06. Calcium is 8.4. Total bilirubin 0.5. AST is 55, ALT 55, alkaline phosphatase is 40. CRP is down to 2.6. Albumin is down to 2.8. We will continue remdesivir and dexamethasone. Did discuss proning with the patient and he agreed to do this. He continues to utilize his incentive spirometer. We will recheck labs tomorrow morning including a D-dimer. Overall he is improving and his lung sounds are sounding better. Likely discharge after completion of treatment, which is a 5-day course. - Plan Plan:: Hypoxia Pneumonia due to COVID-19 virus Neutropenia, improving * O2 as needed to keep saturations 88 to 95%. * I-S * RT consultation * Mucinex twice daily * Remdesivir day 3 * Dexamethasone 6 mg day 04/20 * Prone whenever possible * Ambulate around room * Continuous pulse oximetry * Telemetry * Airborne/contact isolation * Daily labs * Every 48-hour D-dimer * Procalcitonin pending * Will hold off IV antibiotics for now. * PT/OT evaluation Type II diabetes mellitus * Medium dose sliding scale insulin * 4 times daily AC at bedtime blood glucose checks * Diabetic diet * Discontinue Metformin while in hospital * Anticipate rise in blood sugars due to steroids [place] (hard of hearing) * No acute concerns * Ensure patient is able to hear when discussing treatment with him HTN (hypertension) * As needed hydralazine * Monitor vital signs GERD (gastroesophageal reflux disease) * Daily famotidine * No acute concerns BPH (benign prostatic hyperplasia) * Continue Proscar * No acute concerns Gout * Continue home allopurinol Code status: Full Code PCP: Dr. Peña with the [facility] DVT prophylaxis: Heparin Disposition: Patient will remain admitted to the floor for COVID-19 pneumonia treatment. Total length of stay 3 to 5 days pending response to treatment and ability to wean off oxygen.
[2020-11-17] MEDS: guaiFENesin 600 MG Tab.ER PO SCH ×2 (08:51→20:54)
[2020-11-17] MEDS: Insulin Lispro 100 UNIT/ML 10 ML Vial SUBCUT SCH ×4 (08:51→21:02)
[2020-11-17] MEDS: amLODIPine 5 MG Tab PO SCH (08:51)
[2020-11-17] MEDS: Tamsulosin 0.4 MG Cap.ER PO SCH (08:52)
[2020-11-17] MEDS: Allopurinol 300 MG Tab PO SCH (08:52)
[2020-11-17] MEDS: Cholecalciferol (Vitamin D3) 25 MCG Tab PO SCH (08:52)
[2020-11-17] MEDS: Dexamethasone 4 MG Tab PO SCH (08:53)
[2020-11-17] MEDS: Finasteride 5 MG Tab PO SCH (08:53)
[2020-11-17] MEDS: Famotidine 20 MG Tab PO SCH (08:53)
[2020-11-17] MEDS: Acetaminophen 325 MG Tab PO PRN ×2 (09:04→17:54)
[2020-11-17] MEDS ORDERED: REMDESIVIR 100 MG in Sodium Chloride 0.9% 100 ML IV SCH (17:30)
[2020-11-17] MEDS: REMDESIVIR 100 MG in Sodium Chloride 0.9% 100 ML IV SCH (20:54)
[2020-11-18] MEDS: Heparin Sodium 5,000 Units/ML Vial SUBCUT SCH ×2 (01:34→08:36)
[2020-11-18] MEDS: Acetaminophen 325 MG Tab PO PRN (05:52)
[2020-11-18] MEDS: Insulin Lispro 100 UNIT/ML 10 ML Vial SUBCUT SCH ×4 (08:18→21:15)
[2020-11-18] MEDS: amLODIPine 5 MG Tab PO SCH (08:35)
[2020-11-18] MEDS: Famotidine 20 MG Tab PO SCH (08:35)
[2020-11-18] MEDS: Finasteride 5 MG Tab PO SCH (08:35)
[2020-11-18] MEDS: Cholecalciferol (Vitamin D3) 25 MCG Tab PO SCH (08:35)
[2020-11-18] MEDS: guaiFENesin 600 MG Tab.ER PO SCH ×2 (08:36→21:15)
[2020-11-18] MEDS: Dexamethasone 4 MG Tab PO SCH (08:36)
[2020-11-18] MEDS: Tamsulosin 0.4 MG Cap.ER PO SCH (08:36)
[2020-11-18] MEDS: Allopurinol 300 MG Tab PO SCH (08:36)
--- NOTE | 2020-11-18 10:44 | PCM.PN ---
- General Info Date of Service: 11/18/20 Admission Dx/Problem (Free Text): Admission Diagnosis/Problem Admission Diagnosis/Problem covid Pneumonia Functional Status: Reports: Pain Controlled, Tolerating Diet, Ambulating, Urinating, Incentive Spirometry, Other (Acapella ). Denies: New Symptoms - Review of Systems General: Reports: No Symptoms. Denies: Fever, Weakness, Fatigue, Malaise, Chills HEENT: Reports: No Symptoms. Denies: Headaches, Sore Throat Pulmonary: Reports: Shortness of Breath, Cough. Denies: Sputum, Wheezing Cardiovascular: Reports: Dyspnea on Exertion. Denies: Chest Pain, Palpitations, Edema Gastrointestinal: Reports: No Symptoms. Denies: Abdominal Pain, Constipation, Diarrhea, Nausea, Vomiting Genitourinary: Reports: No Symptoms. Denies: Pain Musculoskeletal: Reports: Back Pain (Acute on chronic ) Skin: Reports: No Symptoms. Denies: Cyanosis Neurological: Reports: No Symptoms. Denies: Confusion, Dizziness, Headache, Numbness, Seizure, Syncope, Tingling, Difficulty Walking, Gait Disturbance Psychiatric: Reports: No Symptoms - Patient Data Vitals - Most Recent: Last Vital Signs Temp 97.7 F 11/18/20 05:49 Pulse 53 L 11/18/20 05:49 Resp 33 H 11/18/20 05:49 BP 110/63 11/18/20 08:35 Pulse Ox 92 L 11/18/20 08:50 Weight - Most Recent: 185 lb 3.2 oz I&O - Last 24 Hours: Intake & Output 11/17/20 11/18/20 11/18/20 22:59 06:59 14:59 Intake Total 1525 900 Balance 1525 900 Lab Results Last 24 Hours: Laboratory Results - last 24 hr 11/17/20 11/17/20 11/17/20 Range/Units 11:39 16:48 20:51 WBC (4.23-9.07) K/mm3 RBC (4.63-6.08) M/mm3 Hgb (13.7-17.5) gm/dl Hct (40.1-51.0) % MCV (79.0-92.2) fl MCH (25.7-32.2) pg MCHC (32.2-35.5) g/dl RDW Std Deviation (35.1-43.9) fL Plt Count (163-337) K/mm3 MPV (9.4-12.3) fl Neut % (Auto) (34.0-67.9) % Lymph % (Auto) (21.8-53.1) % [place] % (Auto) (5.3-12.2) % Eos % (Auto) (0.8-7.0) Baso % (Auto) (0.1-1.2) % Neut # (Auto) (1.78-5.38) K/mm3 Lymph # (Auto) (1.32-3.57) K/mm3 [place] # (Auto) (0.30-0.82) K/mm3 Eos # (Auto) (0.04-0.54) K/mm3 Baso # (Auto) (0.01-0.08) K/mm3 Manual Slide Review D-Dimer, Quantitative (0.19-0.50) mg/L Sodium (136-145) mEq/L Potassium (3.5-5.1) mEq/L Chloride (98-107) mEq/L Carbon Dioxide (21-32) mEq/L Anion Gap (5-15) BUN (7-18) mg/dL Creatinine (0.7-1.3) mg/dL Est Cr Clr Drug Dosing mL/min Estimated GFR (MDRD) (>60) mL/min BUN/Creatinine Ratio (14-18) Glucose (70-99) mg/dL POC Glucose 218 H 220 H 247 H (70-99) mg/dL Calcium (8.5-10.1) mg/dL Total Bilirubin (0.2-1.0) mg/dL AST (15-37) U/L ALT (16-63) U/L Alkaline Phosphatase (46-116) U/L C-Reactive Protein (<1.0) mg/dL Total Protein (6.4-8.2) g/dl Albumin (3.4-5.0) g/dl Globulin gm/dL Albumin/Globulin Ratio (1-2) 11/18/20 11/18/20 11/18/20 Range/Units 06:23 07:07 07:07 WBC 3.47 L (4.23-9.07) K/mm3 RBC 4.86 (4.63-6.08) M/mm3 Hgb 14.2 (13.7-17.5) gm/dl Hct 41.8 (40.1-51.0) % MCV 86.0 (79.0-92.2) fl MCH 29.2 (25.7-32.2) pg MCHC 34.0 (32.2-35.5) g/dl RDW Std Deviation 37.0 (35.1-43.9) fL Plt Count 156 L (163-337) K/mm3 MPV 10.4 (9.4-12.3) fl Neut % (Auto) 55.6 (34.0-67.9) % Lymph % (Auto) 26.2 (21.8-53.1) % [place] % (Auto) 17.9 H (5.3-12.2) % Eos % (Auto) 0 L (0.8-7.0) Baso % (Auto) 0.3 (0.1-1.2) % Neut # (Auto) 1.93 (1.78-5.38) K/mm3 Lymph # (Auto) 0.91 L (1.32-3.57) K/mm3 [place] # (Auto) 0.62 (0.30-0.82) K/mm3 Eos # (Auto) 0.00 L (0.04-0.54) K/mm3 Baso # (Auto) 0.01 (0.01-0.08) K/mm3 Manual Slide Review Normal smear D-Dimer, Quantitative (0.19-0.50) mg/L Sodium 138 (136-145) mEq/L Potassium 3.7 (3.5-5.1) mEq/L Chloride 102 (98-107) mEq/L Carbon Dioxide 28 (21-32) mEq/L Anion Gap 11.7 (5-15) BUN 25 H (7-18) mg/dL Creatinine 0.9 (0.7-1.3) mg/dL Est Cr Clr Drug Dosing 78.91 mL/min Estimated GFR (MDRD) > 60 (>60) mL/min BUN/Creatinine Ratio 27.8 H (14-18) Glucose 144 H (70-99) mg/dL POC Glucose 138 H (70-99) mg/dL Calcium 8.6 (8.5-10.1) mg/dL Total Bilirubin 0.5 (0.2-1.0) mg/dL AST 50 H (15-37) U/L ALT 52 (16-63) U/L Alkaline Phosphatase 36 L (46-116) U/L C-Reactive Protein 1.0 (<1.0) mg/dL Total Protein 6.2 L (6.4-8.2) g/dl Albumin 2.9 L (3.4-5.0) g/dl Globulin 3.3 gm/dL Albumin/Globulin Ratio 0.9 L (1-2) 11/18/20 Range/Units 07:07 WBC (4.23-9.07) K/mm3 RBC (4.63-6.08) M/mm3 Hgb (13.7-17.5) gm/dl Hct (40.1-51.0) % MCV (79.0-92.2) fl MCH (25.7-32.2) pg MCHC (32.2-35.5) g/dl RDW Std Deviation (35.1-43.9) fL Plt Count (163-337) K/mm3 MPV (9.4-12.3) fl Neut % (Auto) (34.0-67.9) % Lymph % (Auto) (21.8-53.1) % [place] % (Auto) (5.3-12.2) % Eos % (Auto) (0.8-7.0) Baso % (Auto) (0.1-1.2) % Neut # (Auto) (1.78-5.38) K/mm3 Lymph # (Auto) (1.32-3.57) K/mm3 [place] # (Auto) (0.30-0.82) K/mm3 Eos # (Auto) (0.04-0.54) K/mm3 Baso # (Auto) (0.01-0.08) K/mm3 Manual Slide Review D-Dimer, Quantitative < 0.19 L (0.19-0.50) mg/L Sodium (136-145) mEq/L Potassium (3.5-5.1) mEq/L Chloride (98-107) mEq/L Carbon Dioxide (21-32) mEq/L Anion Gap (5-15) BUN (7-18) mg/dL Creatinine (0.7-1.3) mg/dL Est Cr Clr Drug Dosing mL/min Estimated GFR (MDRD) (>60) mL/min BUN/Creatinine Ratio (14-18) Glucose (70-99) mg/dL POC Glucose (70-99) mg/dL Calcium (8.5-10.1) mg/dL Total Bilirubin (0.2-1.0) mg/dL AST (15-37) U/L ALT (16-63) U/L Alkaline Phosphatase (46-116) U/L C-Reactive Protein (<1.0) mg/dL Total Protein (6.4-8.2) g/dl Albumin (3.4-5.0) g/dl Globulin gm/dL Albumin/Globulin Ratio (1-2) Med Orders - Current: Current Medications Acetaminophen (Acetaminophen 325 Mg Tab) 650 mg PO Q4H PRN PRN Reason: Pain (Mild 1-3)/fever Last Admin: 11/18/20 05:52 Dose: 650 mg Documented by: Albuterol (Albuterol 6.7 Gm Inhaler) 0 gm INH Q2H PRN PRN Reason: SOB/Wheezing Albuterol/Ipratropium (Albuterol/Ipratropium 3.0-0.5 Mg/3 Ml Neb Soln) 3 ml NEB QIDRT PRN PRN Reason: Shortness Of Breath/wheezing Allopurinol (Allopurinol 300 Mg Tab) 150 mg PO DAILY [facility] Last Admin: 11/18/20 08:36 Dose: 150 mg Documented by: Amlodipine Besylate (Amlodipine 5 Mg Tab) 5 mg PO DAILY [facility] Last Admin: 11/18/20 08:35 Dose: 5 mg Documented by: Cholecalciferol (Cholecalciferol (Vitamin D3) 25 Mcg Tab) 25 mcg PO DAILY [facility] Last Admin: 11/18/20 08:35 Dose: 25 mcg Documented by: Dexamethasone (Dexamethasone 4 Mg Tab) 6 mg PO DAILY [facility] Stop: 11/24/20 09:01 Last Admin: 11/18/20 08:36 Dose: 6 mg Documented by: Docusate Sodium (Docusate Sodium 100 Mg Cap) 100 mg PO Q12H PRN PRN Reason: Constipation Famotidine (Famotidine 20 Mg Tab) 20 mg PO DAILY [facility] Last Admin: 11/18/20 08:35 Dose: 20 mg Documented by: Finasteride (Finasteride 5 Mg Tab) 5 mg PO DAILY [facility] Last Admin: 11/18/20 08:35 Dose: 5 mg Documented by: Guaifenesin (Guaifenesin 600 Mg Tab.Er) 600 mg PO BID [facility] Last Admin: 11/18/20 08:36 Dose: 600 mg Documented by: Heparin Sodium (Porcine) (Heparin Sodium 5,000 Units/Ml Vial) 7,500 units SUBCUT Q8H [facility] Last Admin: 11/18/20 08:36 Dose: 7,500 units Documented by: Hydralazine HCl (Hydralazine 20 Mg/Ml Sdv) 10 mg IVPUSH Q4H PRN PRN Reason: Hypertension Remdesivir 100 mg/ Sodium (Chloride) 100 mls @ 100 mls/hr IV Q24H [facility] Stop: 11/19/20 21:59 Last Admin: 11/17/20 20:54 Dose: 100 mls/hr Documented by: Insulin Human Lispro (Insulin Lispro 100 Unit/Ml 10 Ml Vial) 0 unit SUBCUT QIDACANDBED [facility]; Protocol Last Admin: 11/18/20 08:18 Dose: Not Given Documented by: Ondansetron HCl (Ondansetron 4 Mg Tab.Dis) 4 mg PO Q4H PRN PRN Reason: nausea, able to take PO Sodium Chloride (Sodium Chloride 0.9% 10 Ml Syringe) 10 ml FLUSH ASDIRECTED PRN PRN Reason: Keep Vein Open Last Admin: 11/15/20 17:05 Dose: 10 ml Documented by: Tamsulosin HCl (Tamsulosin 0.4 Mg Cap.Er) 0.4 mg PO DAILY [facility] Last Admin: 11/18/20 08:36 Dose: 0.4 mg Documented by: Temazepam (Temazepam 7.5 Mg Cap) 7.5 mg PO BEDTIME PRN PRN Reason: Sleep Discontinued Medications Dexamethasone (Dexamethasone 4 Mg Tab) 6 mg PO ONETIME ONE Stop: 11/15/20 16:47 Last Admin: 11/15/20 17:06 Dose: 6 mg Documented by: Dexamethasone (Dexamethasone 10 Mg/Ml Sdv) 6 mg IVPUSH DAILY [facility] Stop: 11/25/20 09:01 Enoxaparin Sodium (Enoxaparin 40 Mg/0.4 Ml Syringe) 40 mg SUBCUT DAILY [facility] Remdesivir 200 mg/ Sodium (Chloride) 250 mls @ 250 mls/hr IV ONETIME ONE Stop: 11/15/20 17:18 Last Admin: 11/15/20 20:21 Dose: 250 mls/hr Documented by: Remdesivir 100 mg/ Sodium (Chloride) 100 mls @ 100 mls/hr IV Q24H [facility] Stop: 11/20/20 18:29 Remdesivir 200 mg/ Sodium (Chloride) 250 mls @ 250 mls/hr IV ONETIME ONE Stop: 11/15/20 21:59 Last Admin: 11/15/20 20:38 Dose: Not Given Documented by: Ketorolac Tromethamine (Ketorolac 30 Mg/Ml Sdv) 30 mg IVPUSH ONETIME ONE Stop: 11/15/20 16:48 Last Admin: 11/15/20 17:06 Dose: 30 mg Documented by: Metformin HCl (Metformin 500 Mg Tab) 500 mg PO BID [facility] Last Admin: 11/16/20 08:52 Dose: 500 mg Documented by: - Exam Quality Assessment: Supplemental Oxygen (2L), DVT Prophylaxis. No: Urine Catheter General: Alert, Oriented, Cooperative, No Acute Distress HEENT: Pupils Equal, Pupils Reactive, Mucous Membr. Moist/Talent Neck: Supple, Trachea Midline Lungs: Normal Respiratory Effort, Decreased Breath Sounds, Crackles Cardiovascular: Regular Rate, Regular Rhythm GI/Abdominal Exam: Normal Bowel Sounds, Soft, Non-Tender, No Distention (Male) Exam: Deferred Back Exam: Normal Inspection, Full Range of Motion Extremities: Normal Inspection, Normal Range of Motion, Non-Tender, No Pedal Edema, Normal Capillary Refill Peripheral Pulses: 2+: Radial (L), Radial (R), Dorsalis Pedis (L), Dorsalis Pedis (R) Skin: Warm, Dry, Intact Neurological: No New Focal Deficit Psy/Mental Status: Alert, Normal Affect, Normal Mood - Patient Data Lab Results Last 24 hrs: Laboratory Results - last 24 hr 11/17/20 11/17/20 11/17/20 Range/Units 11:39 16:48 20:51 WBC (4.23-9.07) K/mm3 RBC (4.63-6.08) M/mm3 Hgb (13.7-17.5) gm/dl Hct (40.1-51.0) % MCV (79.0-92.2) fl MCH (25.7-32.2) pg MCHC (32.2-35.5) g/dl RDW Std Deviation (35.1-43.9) fL Plt Count (163-337) K/mm3 MPV (9.4-12.3) fl Neut % (Auto) (34.0-67.9) % Lymph % (Auto) (21.8-53.1) % [place] % (Auto) (5.3-12.2) % Eos % (Auto) (0.8-7.0) Baso % (Auto) (0.1-1.2) % Neut # (Auto) (1.78-5.38) K/mm3 Lymph # (Auto) (1.32-3.57) K/mm3 [place] # (Auto) (0.30-0.82) K/mm3 Eos # (Auto) (0.04-0.54) K/mm3 Baso # (Auto) (0.01-0.08) K/mm3 Manual Slide Review D-Dimer, Quantitative (0.19-0.50) mg/L Sodium (136-145) mEq/L Potassium (3.5-5.1) mEq/L Chloride (98-107) mEq/L Carbon Dioxide (21-32) mEq/L Anion Gap (5-15) BUN (7-18) mg/dL Creatinine (0.7-1.3) mg/dL Est Cr Clr Drug Dosing mL/min Estimated GFR (MDRD) (>60) mL/min BUN/Creatinine Ratio (14-18) Glucose (70-99) mg/dL POC Glucose 218 H 220 H 247 H (70-99) mg/dL Calcium (8.5-10.1) mg/dL Total Bilirubin (0.2-1.0) mg/dL AST (15-37) U/L ALT (16-63) U/L Alkaline Phosphatase (46-116) U/L C-Reactive Protein (<1.0) mg/dL Total Protein (6.4-8.2) g/dl Albumin (3.4-5.0) g/dl Globulin gm/dL Albumin/Globulin Ratio (1-2) 10/08/21 10/08/21 10/08/21 Range/Units 06:23 07:07 07:07 WBC 3.47 L (4.23-9.07) K/mm3 RBC 4.86 (4.63-6.08) M/mm3 Hgb 14.2 (13.7-17.5) gm/dl Hct 41.8 (40.1-51.0) % MCV 86.0 (79.0-92.2) fl MCH 29.2 (25.7-32.2) pg MCHC 34.0 (32.2-35.5) g/dl RDW Std Deviation 37.0 (35.1-43.9) fL Plt Count 156 L (163-337) K/mm3 MPV 10.4 (9.4-12.3) fl Neut % (Auto) 55.6 (34.0-67.9) % Lymph % (Auto) 26.2 (21.8-53.1) % [place] % (Auto) 17.9 H (5.3-12.2) % Eos % (Auto) 0 L (0.8-7.0) Baso % (Auto) 0.3 (0.1-1.2) % Neut # (Auto) 1.93 (1.78-5.38) K/mm3 Lymph # (Auto) 0.91 L (1.32-3.57) K/mm3 [place] # (Auto) 0.62 (0.30-0.82) K/mm3 Eos # (Auto) 0.00 L (0.04-0.54) K/mm3 Baso # (Auto) 0.01 (0.01-0.08) K/mm3 Manual Slide Review Normal smear D-Dimer, Quantitative (0.19-0.50) mg/L Sodium 138 (136-145) mEq/L Potassium 3.7 (3.5-5.1) mEq/L Chloride 102 (98-107) mEq/L Carbon Dioxide 28 (21-32) mEq/L Anion Gap 11.7 (5-15) BUN 25 H (7-18) mg/dL Creatinine 0.9 (0.7-1.3) mg/dL Est Cr Clr Drug Dosing 78.91 mL/min Estimated GFR (MDRD) > 60 (>60) mL/min BUN/Creatinine Ratio 27.8 H (14-18) Glucose 144 H (70-99) mg/dL POC Glucose 138 H (70-99) mg/dL Calcium 8.6 (8.5-10.1) mg/dL Total Bilirubin 0.5 (0.2-1.0) mg/dL AST 50 H (15-37) U/L ALT 52 (16-63) U/L Alkaline Phosphatase 36 L (46-116) U/L C-Reactive Protein 1.0 (<1.0) mg/dL Total Protein 6.2 L (6.4-8.2) g/dl Albumin 2.9 L (3.4-5.0) g/dl Globulin 3.3 gm/dL Albumin/Globulin Ratio 0.9 L (1-2) 11/18/20 Range/Units 07:07 WBC (4.23-9.07) K/mm3 RBC (4.63-6.08) M/mm3 Hgb (13.7-17.5) gm/dl Hct (40.1-51.0) % MCV (79.0-92.2) fl MCH (25.7-32.2) pg MCHC (32.2-35.5) g/dl RDW Std Deviation (35.1-43.9) fL Plt Count (163-337) K/mm3 MPV (9.4-12.3) fl Neut % (Auto) (34.0-67.9) % Lymph % (Auto) (21.8-53.1) % [place] % (Auto) (5.3-12.2) % Eos % (Auto) (0.8-7.0) Baso % (Auto) (0.1-1.2) % Neut # (Auto) (1.78-5.38) K/mm3 Lymph # (Auto) (1.32-3.57) K/mm3 [place] # (Auto) (0.30-0.82) K/mm3 Eos # (Auto) (0.04-0.54) K/mm3 Baso # (Auto) (0.01-0.08) K/mm3 Manual Slide Review D-Dimer, Quantitative < 0.19 L (0.19-0.50) mg/L Sodium (136-145) mEq/L Potassium (3.5-5.1) mEq/L Chloride (98-107) mEq/L Carbon Dioxide (21-32) mEq/L Anion Gap (5-15) BUN (7-18) mg/dL Creatinine (0.7-1.3) mg/dL Est Cr Clr Drug Dosing mL/min Estimated GFR (MDRD) (>60) mL/min BUN/Creatinine Ratio (14-18) Glucose (70-99) mg/dL POC Glucose (70-99) mg/dL Calcium (8.5-10.1) mg/dL Total Bilirubin (0.2-1.0) mg/dL AST (15-37) U/L ALT (16-63) U/L Alkaline Phosphatase (46-116) U/L C-Reactive Protein (<1.0) mg/dL Total Protein (6.4-8.2) g/dl Albumin (3.4-5.0) g/dl Globulin gm/dL Albumin/Globulin Ratio (1-2) Result Diagrams: 11/18/20 07:07 11/18/20 07:07 Sepsis Event Note - Evaluation Sepsis Screening Result: No Definite Risk - Focused Exam Vital Signs: Vital Signs Temp Pulse Resp BP Pulse Ox Pulse Ox 11/18/20 08:50 92 L 11/18/20 08:35 110/63 11/18/20 05:49 97.7 F 53 L 33 H 109/58 L 92 L 11/18/20 05:00 19 11/18/20 04:00 21 H 11/18/20 03:00 17 11/18/20 02:00 17 11/18/20 01:00 19 11/18/20 00:00 26 H 11/17/20 23:00 18 - Problem List & Annotations (1) Type II diabetes mellitus SNOMED Code(s): 36479030 Code(s): E11.9 - TYPE 2 DIABETES MELLITUS WITHOUT COMPLICATIONS Status: Chronic Priority: Medium Current Visit: Yes Qualifiers: Diabetes mellitus medical terminologist insulin use: without medical terminologist use Diabetes mellitus complication status: without complication Qualified Code(s): E11.9 - Type 2 diabetes mellitus without complications (2) [place] (hard of hearing) SNOMED Code(s): 69947645 Code(s): H91.90 - UNSPECIFIED HEARING LOSS, UNSPECIFIED EAR Status: Chronic Priority: Low Current Visit: No Qualifiers: Hearing loss type: unspecified Laterality: unspecified laterality Qualified Code(s): H91.90 - Unspecified hearing loss, unspecified ear (3) Hypoxia SNOMED Code(s): 216119040 Code(s): R09.02 - HYPOXEMIA Status: Acute Priority: High Current Visit: Yes (4) Pneumonia due to COVID-19 virus SNOMED Code(s): 667955669575989196 Code(s): U07.1 - COVID-19; J12.82 - PNEUMONIA DUE TO CORONAVIRUS DISEASE 2019 Status: Acute Priority: High Current Visit: Yes (5) HTN (hypertension) SNOMED Code(s): 37278924 Code(s): I10 - ESSENTIAL (PRIMARY) HYPERTENSION Status: Chronic Priority: Low Current Visit: No Qualifiers: Hypertension type: unspecified Qualified Code(s): I10 - Essential (primary) hypertension (6) GERD (gastroesophageal reflux disease) SNOMED Code(s): 713898499 Code(s): K21.9 - GASTRO-ESOPHAGEAL REFLUX DISEASE WITHOUT ESOPHAGITIS Status: Chronic Priority: Low Current Visit: No Qualifiers: Esophagitis presence: esophagitis presence not specified Qualified Code(s): K21.9 - Gastro-esophageal reflux disease without esophagitis (7) BPH (benign prostatic hyperplasia) SNOMED Code(s): 311115448 Code(s): N40.0 - BENIGN PROSTATIC HYPERPLASIA WITHOUT LOWER URINRY TRACT SYMP Status: Chronic Priority: Low Current Visit: No Qualifiers: Lower urinary tract symptom presence: unspecified whether lower urinary tract symptoms present Qualified Code(s): N40.0 - Benign prostatic hyperplasia without lower urinary tract symptoms (8) Neutropenia SNOMED Code(s): 687990367 Code(s): D70.9 - NEUTROPENIA, UNSPECIFIED Status: Chronic Priority: Medium Current Visit: Yes Qualifiers: Neutropenia type: due to infection Qualified Code(s): D70.3 - Neutropenia due to infection (9) Back pain SNOMED Code(s): 289860193 Code(s): M54.9 - DORSALGIA, UNSPECIFIED Status: Chronic Priority: Medium Current Visit: Yes Qualifiers: Back pain location: low back pain Chronicity: acute Back pain laterality: midline Sciatica presence: without sciatica Qualified Code(s): M54.50 - Low back pain, unspecified - Problem List Review Problem List Initiated/Reviewed/Updated: Yes - My Orders Last 24 Hours: My Active Orders 11/19/20 05:11 DD [D-DIMER QUANTITATIVE] [COAG] AM 11/20/20 05:11 DD [D-DIMER QUANTITATIVE] [COAG] AM - Assessment Assessment:: 11/15/2020 #1. Covid pneumonia-patient is now starting to have hypoxia at 84% after 8 days of illness. The patient is continuing now with worsening symptoms of fever chills nausea vomiting malaise and fatigue. Found to have an elevated D-dimer. Hydration, left infiltrates, mild cardiac strain, and will be started on remdesivir, procalcitonin has been ordered and we will hold antibiotics at this time. We will continue with the dexamethasone that was ordered and started in the ER. We will continue with duo nebs, Mucinex, continuous pulse ox, RT therapy. #2. Diabetes-continue home dose metformin. Sliding scale insulin 3. GERD-continue famotidine 4. Gout-continue allopurinol 5. BPH-continue Proscar 6. Hard of hearing 7. History of hypertension-as needed hydralazine Time 80 minute Anticipate 2 midnight stay but less than 96 hours. 11/16/2020 This is a 75-year-old male admitted to the floor for COVID-19 pneumonia treatme nt. Patient remains weak with a cough and shortness of breath. WBC today is down to 1.77. Hemoglobin is 15.5. Platelets are low at 114,000 but this is improved over yesterday. D-dimer today was down to 0.38. Sodium 137. Potassium 4.0. Chloride 98. Carbon dioxide 29. Anion gap is 14.0. BUN is 24. Creatinine 1.1. GFR [place] 60. Blood glucose readings have been 10 9-1 57. Lactic acid is 1.7. Calcium is 8.4. Magnesium 2.0. Total bilirubin 0.7. AST 73, ALT 66, alkaline phosphatase 39. We'll continue to monitor these as patient is on remdesivir. CRP is up to 6.0. Albumin is 3.2. Patient remains on oxygen and is down to 1.5 L. He has been proning and utilizing his incentive spirometer. Unfortunately our facility is out of Acap[place]. He'll remain hospitalized. Unknown length of stay pending continued improvement. 11/17/2020 This is a 75-year-old male mated to the floor for hypoxia secondary to Covid. He remains on 1.5 L with saturations in the low 90s. Labs today show improvement in his WBC to 3.14. Hemoglobin is 14.2. Platelet improved to 139,000. Neutrophils are normal at 59.2. Sodium 138. Potassium 3.7. Carbon dioxide 27. Anion gap 13.7. BUN is 29. Creatinine 1.0. GFR greater than 60. Blood glucose readings have been 1 49-2 06. Calcium is 8.4. Total bilirubin 0.5. AST is 55, ALT 55, alkaline phosphatase is 40. CRP is down to 2.6. Albumin is down to 2.8. We will continue remdesivir and dexamethasone. Did discuss proning with the patient and he agreed to do this. He continues to utilize his incentive spirometer. We will recheck labs tomorrow morning including a D-dimer. Overall he is improving and his lung sounds are sounding better. Likely discharge after completion of treatment, which is a 5-day cours e. 11/18/2020 This is a 75-year-old male admitted to the floor for treatment of COVID-19 pneumonia. Overall he continues to do fairly well. He continues to have dyspnea with exertion and remains on 2 L of oxygen. He had been down to 1 L prior. He has been having some worsening back pain which is chronic and he states is exacerbated by of the hospital bed. We will add a warming pad today, as he states that has helped in the past. Labs today show a WBC of 3.47. Hemo globin 14.2. Platelet 156,000. Neutrophils 155.6. D-dimer less than 0.19. Sodium 148. Potassium 3.7. Chloride 102. Carbon dioxide 28. Anion gap 11.7. BUN 25. Creatinine 0.9. GFR greater than 60. Glucose has been 1 38-47. Total bilirubin 0.5. AST is 50, ALT is 52, alkaline phosphatase 36. CRP is 1.0. Albumin is 2.9. Plan for discharge within 1 to 2 days, likely on home oxygen. - Plan Plan:: Hypoxia Pneumonia due to COVID-19 virus Neutropenia, improving * O2 as needed to keep saturations 88 to 95%. * I-S * RT consultation * Mucinex twice daily * Remdesivir day 05/16 * Dexamethasone 6 mg day 05/21 * Prone whenever possible * Ambulate around room * Continuous pulse oximetry * Telemetry * Airborne/contact isolation * Daily labs * Every 48-hour D-dimer * Will hold off IV antibiotics for now. * PT/OT evaluation Type II diabetes mellitus * Medium dose sliding scale insulin * 4 times daily AC at bedtime blood glucose checks * Diabetic diet * Discontinue Metformin while in hospital * Anticipate rise in blood sugars due to steroids [place] * No acute concerns * Ensure patient is able to hear when discussing treatment with him HTN (hypertension) * As needed hydralazine * Monitor vital signs GERD (gastroesophageal reflux disease) * Daily famotidine * No acute concerns BPH (benign prostatic hyperplasia) * Continue Proscar * No acute concerns Gout * Continue home allopurinol Back pain * Acute on chronic * Exacerbated by hospital bed * Warming pad PRN Code status: Full Code PCP: [facility] D[facility] prophylaxis: Lovenox Disposition: Patient will remain admitted to the floor for COVID-19 pneumonia treatment. Total length of stay 3 to 5 days pending response to treatment and ability to wean off oxygen. LOS greater than 96 hours due to continued need for treatment for COVID-19 pneumonia.
[2020-11-18] MEDS: REMDESIVIR 100 MG in Sodium Chloride 0.9% 100 ML IV SCH (21:15)
[2020-11-18] MEDS ORDERED: Aluminum Hydroxide/Magnesium Hydroxide/Simethicone Susp 30 ML Cup PO PRN (22:27)
[2020-11-19] MEDS: Insulin Lispro 100 UNIT/ML 10 ML Vial SUBCUT SCH ×4 (07:11→21:57)
[2020-11-19] MEDS: Famotidine 20 MG Tab PO SCH (09:37)
[2020-11-19] MEDS: Allopurinol 300 MG Tab PO SCH (09:39)
[2020-11-19] MEDS: Cholecalciferol (Vitamin D3) 25 MCG Tab PO SCH (09:39)
[2020-11-19] MEDS: Dexamethasone 4 MG Tab PO SCH (09:40)
[2020-11-19] MEDS: amLODIPine 5 MG Tab PO SCH (09:41)
[2020-11-19] MEDS: Tamsulosin 0.4 MG Cap.ER PO SCH (09:41)
[2020-11-19] MEDS: Finasteride 5 MG Tab PO SCH (09:44)
[2020-11-19] MEDS: guaiFENesin 600 MG Tab.ER PO SCH ×2 (09:46→20:02)
[2020-11-19] MEDS: Enoxaparin 40 MG/0.4 ML Syringe SUBCUT SCH (09:47)
--- NOTE | 2020-11-19 12:19 | PCM.PN ---
- General Info Date of Service: 11/19/20 Admission Dx/Problem (Free Text): Admission Diagnosis/Problem Admission Diagnosis/Problem covid Pneumonia Subjective Update: 35-year-old male with COVID-19 pneumonia on 3 L nasal cannula FiO2. Patient states he is feeling much better. Functional Status: Reports: Pain Controlled - Review of Systems General: Reports: Fatigue HEENT: Reports: No Symptoms Pulmonary: Reports: Cough Cardiovascular: Reports: No Symptoms Gastrointestinal: Reports: No Symptoms Musculoskeletal: Reports: No Symptoms - Patient Data Vitals - Most Recent: Last Vital Signs Temp 97.5 F 11/19/20 11:04 Pulse 55 L 11/19/20 11:04 Resp 20 11/19/20 11:04 BP 112/64 11/19/20 11:04 Pulse Ox 95 11/19/20 11:04 Weight - Most Recent: 184 lb I&O - Last 24 Hours: Intake & Output 11/18/20 11/19/20 11/19/20 22:59 06:59 14:59 Intake Total 1075 300 Balance 1075 300 Lab Results Last 24 Hours: Laboratory Results - last 24 hr 11/18/20 11/18/20 11/19/20 Range/Units 17:10 20:36 06:44 WBC (4.23-9.07) K/mm3 RBC (4.63-6.08) M/mm3 Hgb (13.7-17.5) gm/dl Hct (40.1-51.0) % MCV (79.0-92.2) fl MCH (25.7-32.2) pg MCHC (32.2-35.5) g/dl RDW Std Deviation (35.1-43.9) fL Plt Count (163-337) K/mm3 MPV (9.4-12.3) fl Neut % (Auto) (34.0-67.9) % Lymph % (Auto) (21.8-53.1) % [place] % (Auto) (5.3-12.2) % Eos % (Auto) (0.8-7.0) Baso % (Auto) (0.1-1.2) % Neut # (Auto) (1.78-5.38) K/mm3 Lymph # (Auto) (1.32-3.57) K/mm3 [place] # (Auto) (0.30-0.82) K/mm3 Eos # (Auto) (0.04-0.54) K/mm3 Baso # (Auto) (0.01-0.08) K/mm3 Manual Slide Review D-Dimer, Quantitative (0.19-0.50) mg/L Sodium (136-145) mEq/L Potassium (3.5-5.1) mEq/L Chloride (98-107) mEq/L Carbon Dioxide (21-32) mEq/L Anion Gap (5-15) BUN (7-18) mg/dL Creatinine (0.7-1.3) mg/dL Est Cr Clr Drug Dosing mL/min Estimated GFR (MDRD) (>60) mL/min BUN/Creatinine Ratio (14-18) Glucose (70-99) mg/dL POC Glucose 276 H 184 H 147 H (70-99) mg/dL Calcium (8.5-10.1) mg/dL Total Bilirubin (0.2-1.0) mg/dL AST (15-37) U/L ALT (16-63) U/L Alkaline Phosphatase (46-116) U/L C-Reactive Protein (<1.0) mg/dL Total Protein (6.4-8.2) g/dl Albumin (3.4-5.0) g/dl Globulin gm/dL Albumin/Globulin Ratio (1-2) 11/19/20 11/19/20 11/19/20 Range/Units 07:07 07:07 07:07 WBC 4.21 L (4.23-9.07) K/mm3 RBC 4.90 (4.63-6.08) M/mm3 Hgb 14.2 (13.7-17.5) gm/dl Hct 42.7 (40.1-51.0) % MCV 87.1 (79.0-92.2) fl MCH 29.0 (25.7-32.2) pg MCHC 33.3 (32.2-35.5) g/dl RDW Std Deviation 37.7 (35.1-43.9) fL Plt Count 162 L (163-337) K/mm3 MPV 10.1 (9.4-12.3) fl Neut % (Auto) 60.1 (34.0-67.9) % Lymph % (Auto) 23.3 (21.8-53.1) % [place] % (Auto) 15.9 H (5.3-12.2) % Eos % (Auto) 0 L (0.8-7.0) Baso % (Auto) 0.5 (0.1-1.2) % Neut # (Auto) 2.53 (1.78-5.38) K/mm3 Lymph # (Auto) 0.98 L (1.32-3.57) K/mm3 [place] # (Auto) 0.67 (0.30-0.82) K/mm3 Eos # (Auto) 0.00 L (0.04-0.54) K/mm3 Baso # (Auto) 0.02 (0.01-0.08) K/mm3 Manual Slide Review Normal smear D-Dimer, Quantitative 0.30 (0.19-0.50) mg/L Sodium 140 (136-145) mEq/L Potassium 4.1 (3.5-5.1) mEq/L Chloride 103 (98-107) mEq/L Carbon Dioxide 33 H (21-32) mEq/L Anion Gap 8.1 (5-15) BUN 26 H (7-18) mg/dL Creatinine 1.0 (0.7-1.3) mg/dL Est Cr Clr Drug Dosing 71.02 mL/min Estimated GFR (MDRD) > 60 (>60) mL/min BUN/Creatinine Ratio 26.0 H (14-18) Glucose 147 H (70-99) mg/dL POC Glucose (70-99) mg/dL Calcium 8.5 (8.5-10.1) mg/dL Total Bilirubin 0.7 (0.2-1.0) mg/dL AST 93 H (15-37) U/L ALT 88 H (16-63) U/L Alkaline Phosphatase 34 L (46-116) U/L C-Reactive Protein 0.4 (<1.0) mg/dL Total Protein 6.5 (6.4-8.2) g/dl Albumin 3.0 L (3.4-5.0) g/dl Globulin 3.5 gm/dL Albumin/Globulin Ratio 0.9 L (1-2) 11/19/20 Range/Units 11:02 WBC (4.23-9.07) K/mm3 RBC (4.63-6.08) M/mm3 Hgb (13.7-17.5) gm/dl Hct (40.1-51.0) % MCV (79.0-92.2) fl MCH (25.7-32.2) pg MCHC (32.2-35.5) g/dl RDW Std Deviation (35.1-43.9) fL Plt Count (163-337) K/mm3 MPV (9.4-12.3) fl Neut % (Auto) (34.0-67.9) % Lymph % (Auto) (21.8-53.1) % [place] % (Auto) (5.3-12.2) % Eos % (Auto) (0.8-7.0) Baso % (Auto) (0.1-1.2) % Neut # (Auto) (1.78-5.38) K/mm3 Lymph # (Auto) (1.32-3.57) K/mm3 [place] # (Auto) (0.30-0.82) K/mm3 Eos # (Auto) (0.04-0.54) K/mm3 Baso # (Auto) (0.01-0.08) K/mm3 Manual Slide Review D-Dimer, Quantitative (0.19-0.50) mg/L Sodium (136-145) mEq/L Potassium (3.5-5.1) mEq/L Chloride (98-107) mEq/L Carbon Dioxide (21-32) mEq/L Anion Gap (5-15) BUN (7-18) mg/dL Creatinine (0.7-1.3) mg/dL Est Cr Clr Drug Dosing mL/min Estimated GFR (MDRD) (>60) mL/min BUN/Creatinine Ratio (14-18) Glucose (70-99) mg/dL POC Glucose 170 H (70-99) mg/dL Calcium (8.5-10.1) mg/dL Total Bilirubin (0.2-1.0) mg/dL AST (15-37) U/L ALT (16-63) U/L Alkaline Phosphatase (46-116) U/L C-Reactive Protein (<1.0) mg/dL Total Protein (6.4-8.2) g/dl Albumin (3.4-5.0) g/dl Globulin gm/dL Albumin/Globulin Ratio (1-2) Med Orders - Current: Current Medications Acetaminophen (Acetaminophen 325 Mg Tab) 650 mg PO Q4H PRN PRN Reason: Pain (Mild 1-3)/fever Last Admin: 11/18/20 05:52 Dose: 650 mg Documented by: Al Hydroxide/Mg Hydroxide (Aluminum Hydroxide/Magnesium Hydroxide/Simethicone Susp 30 Ml Cup) 30 ml PO Q4H PRN PRN Reason: Heartburn Last Admin: 11/18/20 22:58 Dose: 30 ml Documented by: Albuterol (Albuterol 6.7 Gm Inhaler) 0 gm INH Q2H PRN PRN Reason: SOB/Wheezing Albuterol/Ipratropium (Albuterol/Ipratropium 3.0-0.5 Mg/3 Ml Neb Soln) 3 ml NEB QIDRT PRN PRN Reason: Shortness Of Breath/wheezing Allopurinol (Allopurinol 300 Mg Tab) 150 mg PO DAILY [facility] Last Admin: 11/19/20 09:39 Dose: 150 mg Documented by: Amlodipine Besylate (Amlodipine 5 Mg Tab) 5 mg PO DAILY [facility] Last Admin: 11/19/20 09:41 Dose: 5 mg Documented by: Cholecalciferol (Cholecalciferol (Vitamin D3) 25 Mcg Tab) 25 mcg PO DAILY [facility] Last Admin: 11/19/20 09:39 Dose: 25 mcg Documented by: Dexamethasone (Dexamethasone 4 Mg Tab) 6 mg PO DAILY [facility] Stop: 11/24/20 09:01 Last Admin: 11/19/20 09:40 Dose: 6 mg Documented by: Docusate Sodium (Docusate Sodium 100 Mg Cap) 100 mg PO Q12H PRN PRN Reason: Constipation Enoxaparin Sodium (Enoxaparin 40 Mg/0.4 Ml Syringe) 40 mg SUBCUT DAILY [facility] Last Admin: 11/19/20 09:47 Dose: 40 mg Documented by: Famotidine (Famotidine 20 Mg Tab) 20 mg PO DAILY [facility] Last Admin: 11/19/20 09:37 Dose: 20 mg Documented by: Finasteride (Finasteride 5 Mg Tab) 5 mg PO DAILY [facility] Last Admin: 11/19/20 09:44 Dose: 5 mg Documented by: Guaifenesin (Guaifenesin 600 Mg Tab.Er) 600 mg PO BID [facility] Last Admin: 11/19/20 09:46 Dose: 600 mg Documented by: Hydralazine HCl (Hydralazine 20 Mg/Ml Sdv) 10 mg IVPUSH Q4H PRN PRN Reason: Hypertension Remdesivir 100 mg/ Sodium (Chloride) 100 mls @ 100 mls/hr IV Q24H [facility] Stop: 11/19/20 21:59 Last Admin: 11/18/20 21:15 Dose: 100 mls/hr Documented by: Insulin Human Lispro (Insulin Lispro 100 Unit/Ml 10 Ml Vial) 0 unit SUBCUT QIDACANDBED [facility]; Protocol Last Admin: 11/19/20 07:11 Dose: Not Given Documented by: Ondansetron HCl (Ondansetron 4 Mg Tab.Dis) 4 mg PO Q4H PRN PRN Reason: nausea, able to take PO Sodium Chloride (Sodium Chloride 0.9% 10 Ml Syringe) 10 ml FLUSH ASDIRECTED PRN PRN Reason: Keep Vein Open Last Admin: 11/15/20 17:05 Dose: 10 ml Documented by: Tamsulosin HCl (Tamsulosin 0.4 Mg Cap.Er) 0.4 mg PO DAILY [facility] Last Admin: 11/19/20 09:41 Dose: 0.4 mg Documented by: Temazepam (Temazepam 7.5 Mg Cap) 7.5 mg PO BEDTIME PRN PRN Reason: Sleep Discontinued Medications Dexamethasone (Dexamethasone 4 Mg Tab) 6 mg PO ONETIME ONE Stop: 11/15/20 16:47 Last Admin: 11/15/20 17:06 Dose: 6 mg Documented by: Dexamethasone (Dexamethasone 10 Mg/Ml Sdv) 6 mg IVPUSH DAILY [facility] Stop: 11/25/20 09:01 Enoxaparin Sodium (Enoxaparin 40 Mg/0.4 Ml Syringe) 40 mg SUBCUT DAILY [facility] Heparin Sodium (Porcine) (Heparin Sodium 5,000 Units/Ml Vial) 7,500 units SUBCUT Q8H [facility] Last Admin: 11/18/20 08:36 Dose: 7,500 units Documented by: Remdesivir 200 mg/ Sodium (Chloride) 250 mls @ 250 mls/hr IV ONETIME ONE Stop: 11/15/20 17:18 Last Admin: 11/15/20 20:21 Dose: 250 mls/hr Documented by: Remdesivir 100 mg/ Sodium (Chloride) 100 mls @ 100 mls/hr IV Q24H [facility] Stop: 11/20/20 18:29 Remdesivir 200 mg/ Sodium (Chloride) 250 mls @ 250 mls/hr IV ONETIME ONE Stop: 11/15/20 21:59 Last Admin: 11/15/20 20:38 Dose: Not Given Documented by: Ketorolac Tromethamine (Ketorolac 30 Mg/Ml Sdv) 30 mg IVPUSH ONETIME ONE Stop: 11/15/20 16:48 Last Admin: 11/15/20 17:06 Dose: 30 mg Documented by: Metformin HCl (Metformin 500 Mg Tab) 500 mg PO BID [facility] Last Admin: 11/16/20 08:52 Dose: 500 mg Documented by: - Exam Quality Assessment: Supplemental Oxygen General: Alert, Oriented HEENT: Pupils Equal, Mucous Membr. Moist/[place] Neck: Supple Lungs: Normal Respiratory Effort, Crackles (Bibasilar) Cardiovascular: Regular Rate, Regular Rhythm GI/Abdominal Exam: Normal Bowel Sounds, Soft, Non-Tender, No Distention Extremities: Normal Inspection, No Pedal Edema, Normal Capillary Refill Skin: Warm, Dry, Intact Psy/Mental Status: Alert, Normal Affect, Normal Mood - Patient Data Lab Results Last 24 hrs: Laboratory Results - last 24 hr 11/18/20 11/18/20 11/19/20 Range/Units 17:10 20:36 06:44 WBC (4.23-9.07) K/mm3 RBC (4.63-6.08) M/mm3 Hgb (13.7-17.5) gm/dl Hct (40.1-51.0) % MCV (79.0-92.2) fl MCH (25.7-32.2) pg MCHC (32.2-35.5) g/dl RDW Std Deviation (35.1-43.9) fL Plt Count (163-337) K/mm3 MPV (9.4-12.3) fl Neut % (Auto) (34.0-67.9) % Lymph % (Auto) (21.8-53.1) % [place] % (Auto) (5.3-12.2) % Eos % (Auto) (0.8-7.0) Baso % (Auto) (0.1-1.2) % Neut # (Auto) (1.78-5.38) K/mm3 Lymph # (Auto) (1.32-3.57) K/mm3 [place] # (Auto) (0.30-0.82) K/mm3 Eos # (Auto) (0.04-0.54) K/mm3 Baso # (Auto) (0.01-0.08) K/mm3 Manual Slide Review D-Dimer, Quantitative (0.19-0.50) mg/L Sodium (136-145) mEq/L Potassium (3.5-5.1) mEq/L Chloride (98-107) mEq/L Carbon Dioxide (21-32) mEq/L Anion Gap (5-15) BUN (7-18) mg/dL Creatinine (0.7-1.3) mg/dL Est Cr Clr Drug Dosing mL/min Estimated GFR (MDRD) (>60) mL/min BUN/Creatinine Ratio (14-18) Glucose (70-99) mg/dL POC Glucose 276 H 184 H 147 H (70-99) mg/dL Calcium (8.5-10.1) mg/dL Total Bilirubin (0.2-1.0) mg/dL AST (15-37) U/L ALT (16-63) U/L Alkaline Phosphatase (46-116) U/L C-Reactive Protein (<1.0) mg/dL Total Protein (6.4-8.2) g/dl Albumin (3.4-5.0) g/dl Globulin gm/dL Albumin/Globulin Ratio (1-2) 11/19/20 11/19/20 11/19/20 Range/Units 07:07 07:07 07:07 WBC 4.21 L (4.23-9.07) K/mm3 RBC 4.90 (4.63-6.08) M/mm3 Hgb 14.2 (13.7-17.5) gm/dl Hct 42.7 (40.1-51.0) % MCV 87.1 (79.0-92.2) fl MCH 29.0 (25.7-32.2) pg MCHC 33.3 (32.2-35.5) g/dl RDW Std Deviation 37.7 (35.1-43.9) fL Plt Count 162 L (163-337) K/mm3 MPV 10.1 (9.4-12.3) fl Neut % (Auto) 60.1 (34.0-67.9) % Lymph % (Auto) 23.3 (21.8-53.1) % [place] % (Auto) 15.9 H (5.3-12.2) % Eos % (Auto) 0 L (0.8-7.0) Baso % (Auto) 0.5 (0.1-1.2) % Neut # (Auto) 2.53 (1.78-5.38) K/mm3 Lymph # (Auto) 0.98 L (1.32-3.57) K/mm3 [place] # (Auto) 0.67 (0.30-0.82) K/mm3 Eos # (Auto) 0.00 L (0.04-0.54) K/mm3 Baso # (Auto) 0.02 (0.01-0.08) K/mm3 Manual Slide Review Normal smear D-Dimer, Quantitative 0.30 (0.19-0.50) mg/L Sodium 140 (136-145) mEq/L Potassium 4.1 (3.5-5.1) mEq/L Chloride 103 (98-107) mEq/L Carbon Dioxide 33 H (21-32) mEq/L Anion Gap 8.1 (5-15) BUN 26 H (7-18) mg/dL Creatinine 1.0 (0.7-1.3) mg/dL Est Cr Clr Drug Dosing 71.02 mL/min Estimated GFR (MDRD) > 60 (>60) mL/min BUN/Creatinine Ratio 26.0 H (14-18) Glucose 147 H (70-99) mg/dL POC Glucose (70-99) mg/dL Calcium 8.5 (8.5-10.1) mg/dL Total Bilirubin 0.7 (0.2-1.0) mg/dL AST 93 H (15-37) U/L ALT 88 H (16-63) U/L Alkaline Phosphatase 34 L (46-116) U/L C-Reactive Protein 0.4 (<1.0) mg/dL Total Protein 6.5 (6.4-8.2) g/dl Albumin 3.0 L (3.4-5.0) g/dl Globulin 3.5 gm/dL Albumin/Globulin Ratio 0.9 L (1-2) 11/19/20 Range/Units 11:02 WBC (4.23-9.07) K/mm3 RBC (4.63-6.08) M/mm3 Hgb (13.7-17.5) gm/dl Hct (40.1-51.0) % MCV (79.0-92.2) fl MCH (25.7-32.2) pg MCHC (32.2-35.5) g/dl RDW Std Deviation (35.1-43.9) fL Plt Count (163-337) K/mm3 MPV (9.4-12.3) fl Neut % (Auto) (34.0-67.9) % Lymph % (Auto) (21.8-53.1) % [place] % (Auto) (5.3-12.2) % Eos % (Auto) (0.8-7.0) Baso % (Auto) (0.1-1.2) % Neut # (Auto) (1.78-5.38) K/mm3 Lymph # (Auto) (1.32-3.57) K/mm3 [place] # (Auto) (0.30-0.82) K/mm3 Eos # (Auto) (0.04-0.54) K/mm3 Baso # (Auto) (0.01-0.08) K/mm3 Manual Slide Review D-Dimer, Quantitative (0.19-0.50) mg/L Sodium (136-145) mEq/L Potassium (3.5-5.1) mEq/L Chloride (98-107) mEq/L Carbon Dioxide (21-32) mEq/L Anion Gap (5-15) BUN (7-18) mg/dL Creatinine (0.7-1.3) mg/dL Est Cr Clr Drug Dosing mL/min Estimated GFR (MDRD) (>60) mL/min BUN/Creatinine Ratio (14-18) Glucose (70-99) mg/dL POC Glucose 170 H (70-99) mg/dL Calcium (8.5-10.1) mg/dL Total Bilirubin (0.2-1.0) mg/dL AST (15-37) U/L ALT (16-63) U/L Alkaline Phosphatase (46-116) U/L C-Reactive Protein (<1.0) mg/dL Total Protein (6.4-8.2) g/dl Albumin (3.4-5.0) g/dl Globulin gm/dL Albumin/Globulin Ratio (1-2) Result Diagrams: 11/19/20 07:07 11/19/20 07:07 Sepsis Event Note - Evaluation Sepsis Screening Result: No Definite Risk - Focused Exam Vital Signs: Vital Signs Temp Pulse Resp BP Pulse Ox 11/19/20 11:04 97.5 F 55 L 20 112/64 95 11/19/20 09:43 97.5 F 46 L 18 110/69 89 L 11/19/20 09:41 110/69 11/19/20 05:36 97.5 F 61 22 H 98/63 92 L - Problem List & Annotations (1) Hypoxia SNOMED Code(s): 050092913 Code(s): R09.02 - HYPOXEMIA Status: Acute Priority: High Current Visit: Yes (2) Pneumonia due to COVID-19 virus SNOMED Code(s): 500234666291748430 Code(s): U07.1 - COVID-19; J12.82 - PNEUMONIA DUE TO CORONAVIRUS DISEASE 2019 Status: Acute Priority: High Current Visit: Yes (3) Type II diabetes mellitus SNOMED Code(s): 73936673 Code(s): E11.9 - TYPE 2 DIABETES MELLITUS WITHOUT COMPLICATIONS Status: Chronic Priority: Medium Current Visit: Yes Qualifiers: Diabetes mellitus terminal worker insulin use: without alf use Diabetes mellitus complication status: without complication Qualified Code(s): E11.9 - Type 2 diabetes mellitus without complications - Problem List Review Problem List Initiated/Reviewed/Updated: Yes - My Orders Last 24 Hours: My Active Orders 11/18/20 22:27 Alum Hydrox/Mag Hydrox/Simeth [Mag-Al Plus] 30 ml PO Q4H PRN - Assessment Assessment:: 11/15/2020 #1. Covid pneumonia-patient is now starting to have hypoxia at 84% after 8 days of illness. The patient is continuing now with worsening symptoms of fever chills nausea vomiting malaise and fatigue. Found to have an elevated D-dimer. Hydration, left infiltrates, mild cardiac strain, and will be started on remdesivir, procalcitonin has been ordered and we will hold antibiotics at this time. We will continue with the dexamethasone that was ordered and started in the ER. We will continue with duo nebs, Mucinex, continuous pulse ox, RT therapy. #2. Diabetes-continue home dose metformin. Sliding scale insulin 3. GERD-continue famotidine 4. Gout-continue allopurinol 5. BPH-continue Proscar 6. Hard of hearing 7. History of hypertension-as needed hydralazine Time 80 minute Anticipate 2 midnight stay but less than 96 hours. 11/16/2020 This is a 75-year-old male admitted to the floor for COVID-19 pneumonia treatment. Patient remains weak with a cough and shortness of breath. WBC today is down to 1.77. Hemoglobin is 15.5. Platelets are low at 114,000 but this is improved over yesterday. D-dimer today was down to 0.38. Sodium 137. Potassium 4.0. Chloride 98. Carbon dioxide 29. Anion gap is 14.0. BUN is 24. Creatinine 1.1. GFR [place] 60. Blood glucose readings have been 10 9-1 57. Lactic acid is 1.7. Calcium is 8.4. Magnesium 2.0. Total bilirubin 0.7. AST 73, ALT 66, alkaline phosphatase 39. We'll continue to monitor these as patient is on remdesivir. CRP is up to 6.0. Albumin is 3.2. Patient remains on oxygen and is down to 1.5 L. He has been proning and utilizing his incentive spirometer. Unfortunately our facility is out of [facility]. He'll remain hospitalized. Unknown length of stay pending continued improvement. 11/17/2020 This is a 75-year-old male mated to the floor for hypoxia secondary to Covid. He remains on 1.5 L with saturations in the low 90s. Labs today show improvement in his WBC to 3.14. Hemoglobin is 14.2. Platelet improved to 139,000. Neutrophils are normal at 59.2. Sodium 138. Potassium 3.7. Carbon dioxide 27. Anion gap 13.7. BUN is 29. Creatinine 1.0. GFR greater than 60. Blood glucose readings have been 1 49-2 06. Calcium is 8.4. Total bilirubin 0.5. AST is 55, ALT 55, alkaline phosphatase is 40. CRP is down to 2.6. Albumin is down to 2.8. We will continue remdesivir and dexamethasone. Did discuss proning with the patient and he agreed to do this. He continues to utilize his incentive spirometer. We will recheck labs tomorrow morning including a D-dimer. Overall he is improving and his lung sounds are sounding better. Likely discharge after completion of treatment, which is a 5-day course. 11/18/2020 This is a 75-year-old male admitted to the floor for treatment of COVID-19 pneumonia. Overall he continues to do fairly well. He continues to have dyspnea with exertion and remains on 2 L of oxygen. He had been down to 1 L prior. He has been having some worsening back pain which is chronic and he states is exacerbated by of the hospital bed. We will add a warming pad today, as he states that has helped in the past. Labs today show a WBC of 3.47. Hemoglobin 14.2. Platelet 156,000. Neutrophils 155.6. D-dimer less than 0.19. Sodium 148. Potassium 3.7. Chloride 102. Carbon dioxide 28. Anion gap 11.7. BUN 25. Creatinine 0.9. GFR greater than 60. Glucose has been 1 38-47. Total bilirubin 0.5. AST is 50, ALT is 52, alkaline phosphatase 36. CRP is 1.0 . Albumin is 2.9. Plan for discharge within 1 to 2 days, likely on home oxygen. 11/16/2020 Heart continues to improve. He is on 3 L nasal cannula currently and proning while I was in the room. AST has increased from 50 to 93 and ALT from 52-88. This is likely secondary to direct action of COVID and possibly remdesivir. We will continue to follow closely. Appetite remains good and eating on her percent of most meals. Patient will likely be able to discharge in the next 2 days. - Plan Plan:: Hypoxia Pneumonia due to COVID-19 virus Neutropenia, improving * O2 as needed to keep saturations 88 to 95%. * I-S * RT consultation * Mucinex twice daily * Remdesivir day 06/15 * Dexamethasone 6 mg day 06/20 * Prone whenever possible * Ambulate around room * Continuous pulse oximetry * Telemetry * Airborne/contact isolation * Daily labs * Every 48-hour D-dimer * Will hold off IV antibiotics for now. * PT/OT evaluation Type II diabetes mellitus * Medium dose sliding scale insulin * 4 times daily AC at bedtime blood glucose checks * Diabetic diet * Discontinue Metformin while in hospital * Anticipate rise in blood sugars due to steroids [place] (hard of hearing) * No acute concerns * Ensure patient is able to hear when discussing treatment with him HTN (hypertension) * As needed hydralazine * Monitor vital signs GERD (gastroesophageal reflux disease) * Daily famotidine * No acute concerns BPH (benign prostatic hyperplasia) * Continue Proscar * No acute concerns Gout * Continue home allopurinol Back pain * Acute on chronic * Exacerbated by hospital bed * Warming pad PRN Code status: Full Code PCP: Dr. Peña with the CT DVT prophylaxis: Lovenox Disposition: Patient will remain admitted to the floor for COVID-19 pneumonia treatment. Total length of stay 3 to 5 days pending response to treatment and ability to wean off oxygen. LOS greater than 96 hours due to continued need for treatment for COVID-19 pneumonia.
[2020-11-19] MEDS: Acetaminophen 325 MG Tab PO PRN (20:01)
[2020-11-19] MEDS: REMDESIVIR 100 MG in Sodium Chloride 0.9% 100 ML IV SCH (20:01)
[2020-11-20] MEDS: Insulin Lispro 100 UNIT/ML 10 ML Vial SUBCUT SCH ×2 (07:32→11:44)
[2020-11-20] MEDS: Tamsulosin 0.4 MG Cap.ER PO SCH (08:27)
[2020-11-20] MEDS: Allopurinol 300 MG Tab PO SCH (08:27)
[2020-11-20] MEDS: amLODIPine 5 MG Tab PO SCH (08:27)
[2020-11-20] MEDS: Finasteride 5 MG Tab PO SCH (08:29)
[2020-11-20] MEDS: guaiFENesin 600 MG Tab.ER PO SCH (08:29)
[2020-11-20] MEDS: Famotidine 20 MG Tab PO SCH (08:29)
[2020-11-20] MEDS: Cholecalciferol (Vitamin D3) 25 MCG Tab PO SCH (08:29)
[2020-11-20] MEDS: Dexamethasone 4 MG Tab PO SCH (08:30)
[2020-11-20] MEDS: Enoxaparin 40 MG/0.4 ML Syringe SUBCUT SCH (08:30)
--- NOTE | 2020-11-20 10:06 | PCM.PN ---
- General Info Date of Service: 11/20/20 Admission Dx/Problem (Free Text): Admission Diagnosis/Problem Admission Diagnosis/Problem covid Pneumonia - Patient Data Vitals - Most Recent: Last Vital Signs Temp 97.7 F 11/20/20 08:25 Pulse 65 11/20/20 08:25 Resp 18 11/20/20 08:25 BP 123/84 11/20/20 08:27 Pulse Ox 92 L 11/20/20 09:24 Weight - Most Recent: 182 lb 4.8 oz I&O - Last 24 Hours: Intake & Output 11/19/20 11/20/20 11/20/20 22:59 06:59 14:59 Intake Total 1140 300 Balance 1140 300 Lab Results Last 24 Hours: Laboratory Results - last 24 hr 11/19/20 11/19/20 11/19/20 Range/Units 11:02 17:45 21:51 D-Dimer, Quantitative (0.19-0.50) mg/L POC Glucose 170 H 252 H 210 H (70-99) mg/dL 11/20/20 11/20/20 Range/Units 06:50 06:58 D-Dimer, Quantitative 0.32 (0.19-0.50) mg/L POC Glucose 130 H (70-99) mg/dL Med Orders - Current: Current Medications Acetaminophen (Acetaminophen 325 Mg Tab) 650 mg PO Q4H PRN PRN Reason: Pain (Mild 1-3)/fever Last Admin: 11/19/20 20:01 Dose: 650 mg Documented by: Al Hydroxide/Mg Hydroxide (Aluminum Hydroxide/Magnesium Hydroxide/Simethicone Susp 30 Ml Cup) 30 ml PO Q4H PRN PRN Reason: Heartburn Last Admin: 11/18/20 22:58 Dose: 30 ml Documented by: Albuterol (Albuterol 6.7 Gm Inhaler) 0 gm INH Q2H PRN PRN Reason: SOB/Wheezing Albuterol/Ipratropium (Albuterol/Ipratropium 3.0-0.5 Mg/3 Ml Neb Soln) 3 ml NEB QIDRT PRN PRN Reason: Shortness Of Breath/wheezing Allopurinol (Allopurinol 300 Mg Tab) 150 mg PO DAILY [facility] Last Admin: 11/20/20 08:27 Dose: 150 mg Documented by: Amlodipine Besylate (Amlodipine 5 Mg Tab) 5 mg PO DAILY [facility] Last Admin: 11/20/20 08:27 Dose: 5 mg Documented by: Cholecalciferol (Cholecalciferol (Vitamin D3) 25 Mcg Tab) 25 mcg PO DAILY [facility] Last Admin: 11/20/20 08:29 Dose: 25 mcg Documented by: Dexamethasone (Dexamethasone 4 Mg Tab) 6 mg PO DAILY [facility] Stop: 11/24/20 09:01 Last Admin: 11/20/20 08:30 Dose: 6 mg Documented by: Docusate Sodium (Docusate Sodium 100 Mg Cap) 100 mg PO Q12H PRN PRN Reason: Constipation Enoxaparin Sodium (Enoxaparin 40 Mg/0.4 Ml Syringe) 40 mg SUBCUT DAILY [facility] Last Admin: 11/20/20 08:30 Dose: 40 mg Documented by: Famotidine (Famotidine 20 Mg Tab) 20 mg PO DAILY [facility] Last Admin: 11/20/20 08:29 Dose: 20 mg Documented by: Finasteride (Finasteride 5 Mg Tab) 5 mg PO DAILY [facility] Last Admin: 11/20/20 08:29 Dose: 5 mg Documented by: Guaifenesin (Guaifenesin 600 Mg Tab.Er) 600 mg PO BID [facility] Last Admin: 11/20/20 08:29 Dose: 600 mg Documented by: Hydralazine HCl (Hydralazine 20 Mg/Ml Sdv) 10 mg IVPUSH Q4H PRN PRN Reason: Hypertension Insulin Human Lispro (Insulin Lispro 100 Unit/Ml 10 Ml Vial) 0 unit SUBCUT QIDACANDBED [facility]; Protocol Last Admin: 11/20/20 07:32 Dose: Not Given Documented by: Ondansetron HCl (Ondansetron 4 Mg Tab.Dis) 4 mg PO Q4H PRN PRN Reason: nausea, able to take PO Sodium Chloride (Sodium Chloride 0.9% 10 Ml Syringe) 10 ml FLUSH ASDIRECTED PRN PRN Reason: Keep Vein Open Last Admin: 11/15/20 17:05 Dose: 10 ml Documented by: Tamsulosin HCl (Tamsulosin 0.4 Mg Cap.Er) 0.4 mg PO DAILY [facility] Last Admin: 11/20/20 08:27 Dose: 0.4 mg Documented by: Temazepam (Temazepam 7.5 Mg Cap) 7.5 mg PO BEDTIME PRN PRN Reason: Sleep Discontinued Medications Dexamethasone (Dexamethasone 4 Mg Tab) 6 mg PO ONETIME ONE Stop: 11/15/20 16:47 Last Admin: 11/15/20 17:06 Dose: 6 mg Documented by: Dexamethasone (Dexamethasone 10 Mg/Ml Sdv) 6 mg IVPUSH DAILY [facility] Stop: 11/25/20 09:01 Enoxaparin Sodium (Enoxaparin 40 Mg/0.4 Ml Syringe) 40 mg SUBCUT DAILY [facility] Heparin Sodium (Porcine) (Heparin Sodium 5,000 Units/Ml Vial) 7,500 units SUBCUT Q8H [facility] Last Admin: 11/18/20 08:36 Dose: 7,500 units Documented by: Remdesivir 200 mg/ Sodium (Chloride) 250 mls @ 250 mls/hr IV ONETIME ONE Stop: 11/15/20 17:18 Last Admin: 11/15/20 20:21 Dose: 250 mls/hr Documented by: Remdesivir 100 mg/ Sodium (Chloride) 100 mls @ 100 mls/hr IV Q24H [facility] Stop: 11/20/20 18:29 Remdesivir 200 mg/ Sodium (Chloride) 250 mls @ 250 mls/hr IV ONETIME ONE Stop: 11/15/20 21:59 Last Admin: 11/15/20 20:38 Dose: Not Given Documented by: Remdesivir 100 mg/ Sodium (Chloride) 100 mls @ 100 mls/hr IV Q24H [facility] Stop: 11/19/20 21:59 Last Admin: 11/19/20 20:01 Dose: 100 mls/hr Documented by: Ketorolac Tromethamine (Ketorolac 30 Mg/Ml Sdv) 30 mg IVPUSH ONETIME ONE Stop: 11/15/20 16:48 Last Admin: 11/15/20 17:06 Dose: 30 mg Documented by: Metformin HCl (Metformin 500 Mg Tab) 500 mg PO BID [facility] Last Admin: 11/16/20 08:52 Dose: 500 mg Documented by: - Patient Data Lab Results Last 24 hrs: Laboratory Results - last 24 hr 11/19/20 11/19/20 11/19/20 Range/Units 11:02 17:45 21:51 D-Dimer, Quantitative (0.19-0.50) mg/L POC Glucose 170 H 252 H 210 H (70-99) mg/dL 11/20/20 11/20/20 Range/Units 06:50 06:58 D-Dimer, Quantitative 0.32 (0.19-0.50) mg/L POC Glucose 130 H (70-99) mg/dL Result Diagrams: 11/19/20 07:07 11/19/20 07:07 Sepsis Event Note - Evaluation Sepsis Screening Result: No Definite Risk - Focused Exam Vital Signs: Vital Signs Temp Temp Pulse Pulse Resp BP BP 11/20/20 09:24 11/20/20 08:27 123/84 11/20/20 08:25 97.7 F 65 18 123/84 11/20/20 04:00 97.3 F 63 18 129/74 Pulse Ox Pulse Ox 11/20/20 09:24 92 L 11/20/20 08:27 11/20/20 08:25 93 L 11/20/20 04:00 93 L - Problem List & Annotations (1) Hypoxia SNOMED Code(s): 585587053 Code(s): R09.02 - HYPOXEMIA Status: Acute Priority: High Current Visit: Yes (2) Pneumonia due to COVID-19 virus SNOMED Code(s): 832030272076307248 Code(s): U07.1 - COVID-19; J12.82 - PNEUMONIA DUE TO CORONAVIRUS DISEASE 2019 Status: Acute Priority: High Current Visit: Yes (3) Type II diabetes mellitus SNOMED Code(s): 91977393 Code(s): E11.9 - TYPE 2 DIABETES MELLITUS WITHOUT COMPLICATIONS Status: Chronic Priority: Medium Current Visit: Yes Qualifiers: Diabetes mellitus longterm insulin use: without longterm use Diabetes mellitus complication status: without complication Qualified Code(s): E11.9 - Type 2 diabetes mellitus without complications - My Orders Last 24 Hours: My Active Orders 11/21/20 05:11 C-REACTIVE PROTEIN [CHEM] AM CBC WITH AUTO DIFF [HEME] AM CMP [COMPREHENSIVE METABOLIC PN,CMP] [CHEM] AM MAGNESIUM [CHEM] AM PHOSPHORUS [CHEM] AM - Assessment Assessment:: 11/15/2020 #1. Covid pneumonia-patient is now starting to have hypoxia at 84% after 8 days of illness. The patient is continuing now with worsening symptoms of fever chills nausea vomiting malaise and fatigue. Found to have an elevated D-dimer. Hydration, left infiltrates, mild cardiac strain, and will be started on remdesivir, procalcitonin has been ordered and we will hold antibiotics at this time. We will continue with the dexamethasone that was ordered and started in the ER. We will continue with duo nebs, Mucinex, continuous pulse ox, RT therapy. #2. Diabetes-continue home dose metformin. Sliding scale insulin 3. GERD-continue famotidine 4. Gout-continue allopurinol 5. BPH-continue Proscar 6. Hard of hearing 7. History of hypertension-as needed hydralazine Time 80 minute Anticipate 2 midnight stay but less than 96 hours. 11/16/2020 This is a 75-year-old male admitted to the floor for COVID-19 pneumonia treatment. Patient remains weak with a cough and shortness of breath. WBC today is down to 1.77. Hemoglobin is 15.5. Platelets are low at 114,000 but this is improved over yesterday. D-dimer today was down to 0.38. Sodium 137. Potassium 4.0. Chloride 98. Carbon dioxide 29. Anion gap is 14.0. BUN is 24. Creatinine 1.1. GFR [place] 60. Blood glucose readings have been 10 9-1 57. Lactic acid is 1.7. Calcium is 8.4. Magnesium 2.0. Total bilirubin 0.7. AST 73, ALT 66, alkaline phosphatase 39. We'll continue to monitor these as patient is on remdesivir. CRP is up to 6.0. Albumin is 3.2. Patient remains on oxyg en and is down to 1.5 L. He has been proning and utilizing his incentive spirometer. Unfortunately our facility is out of Acapella. He'll remain hospitalized. Unknown length of stay pending continued improvement. 11/17/2020 This is a 75-year-old male mated to the floor for hypoxia secondary to Covid. He remains on 1.5 L with saturations in the low 90s. Labs today show improvement in his WBC to 3.14. Hemoglobin is 14.2. Platelet improved to 139,000. Neutrophils are normal at 59.2. Sodium 138. Potassium 3.7. Carbon dioxide 27. Anion gap 13.7. BUN is 29. Creatinine 1.0. GFR greater than 60. Blood glucose readings have been 1 49-2 06. Calcium is 8.4. Total bilirubin 0.5. AST is 55, ALT 55, alkaline phosphatase is 40. CRP is down to 2.6. Albumin is down to 2.8. We will continue remdesivir and dexamethasone. Did discuss proning with the patient and he agreed to do this. He continues to utilize his incentive spirometer. We will recheck labs tomorrow morning including a D-dimer. Overall he is improving and his lung sounds are sounding better. Likely discharge after completion of treatment, which is a 5-day course. 11/18/2020 This is a 75-year-old male admitted to the floor for treatment of COVID-19 pneumonia. Overall he continues to do fairly well. He continues to have dyspnea with exertion and remains on 2 L of oxygen. He had been down to 1 L prior. He has been having some worsening back pain which is chronic and he states is exacerbated by of the hospital bed. We will add a warming pad today, as he states that has helped in the past. Labs today show a WBC of 3.47. Hemoglobin 14.2. Platelet 156,000. Neutrophils 155.6. D-dimer less than 0.19. Sodium 148. Potassium 3.7. Chloride 102. Carbon dioxide 28. Anion gap 11.7. BUN 25. Creatinine 0.9. GFR greater than 60. Glucose has been 1 38-47. Total bilirubin 0.5. AST is 50, ALT is 52, alkaline phosphatase 36. CRP is 1.0. Albumin is 2.9. Plan for discharge within 1 to 2 days, likely on home oxygen. 11/16/2020 Heart continues to improve. He is on 3 L nasal cannula currently and proning while I was in the room. AST has increased from 50 to 93 and ALT from 52-88. This is likely secondary to direct action of COVID and possibly remdesivir. We will continue to follow closely. Appetite remains good and eating on her percent of most meals. Patient will likely be able to discharge in the next 2 days. - Plan Plan:: Hypoxia Pneumonia due to COVID-19 virus Neutropenia, improving * O2 as needed to keep saturations 88 to 95%. * I-S * RT consultation * Mucinex twice daily * Remdesivir day 06/15 * Dexamethasone 6 mg day 06/20 * Prone whenever possible * Ambulate around room * Continuous pulse oximetry * Telemetry * Airborne/contact isolation * Daily labs * Every 48-hour D-dimer * Will hold off IV antibiotics for now. * PT/OT evaluation Type II diabetes mellitus * Medium dose sliding scale insulin * 4 times daily AC at bedtime blood glucose checks * Diabetic diet * Discontinue Metformin while in hospital * Anticipate rise in blood sugars due to steroids LIME (hard of hearing) * No acute concerns * Ensure patient is able to hear when discussing treatment with him HTN (hypertension) * As needed hydralazine * Monitor vital signs GERD (gastroesophageal reflux disease) * Daily famotidine * No acute concerns BPH (benign prostatic hyperplasia) * Continue Proscar * No acute concerns Gout * Continue home allopurinol Back pain * Acute on chronic * Exacerbated by hospital bed * Warming pad PRN Code status: Full Code PCP: Dr. Peña with the PA DVT prophylaxis: Lovenox Disposition: Patient will remain admitted to the floor for COVID-19 pneumonia treatment. Total length of stay 3 to 5 days pending response to treatment and ability to wean off oxygen. LOS greater than 96 hours due to continued need for treatment for COVID-19 pneumonia.
--- NOTE | 2020-11-20 15:45 | PCM.DCSUM1 ---
Discharge Summary - Hospital Course HPI Initial Comments: #1. Covid pneumonia-patient is now starting to have hypoxia at 84% after 8 days of illness. The patient is continuing now with worsening symptoms of fever chills nausea vomiting malaise and fatigue. Found to have an elevated D-dimer. Hydration, left infiltrates, mild cardiac strain, and will be started on remdesivir, procalcitonin has been ordered and we will hold antibiotics at this time. We will continue with the dexamethasone that was ordered and started in the ER. We will continue with duo nebs, Mucinex, continuous pulse ox, RT therapy. #2. Diabetes-continue home dose metformin. Sliding scale insulin 3. GERD-continue famotidine 4. Gout-continue allopurinol 5. BPH-continue Proscar 6. Hard of hearing 7. History of hypertension-as needed hydralazine Time 80 minute Anticipate 2 midnight stay but less than 96 hours. - Mortality Measure Prognosis:: Good Diagnosis: Stroke: No - Discharge Data Discharge Date: 11/20/20 Discharge Disposition: Home, Self-Care 01 Condition: Fair - Referral to Home Health Primary Care Physician: PCP None - Discharge Diagnosis/Problem(s) (1) Hypoxia SNOMED Code(s): 912094319 ICD Code: R09.02 - HYPOXEMIA Status: Acute Priority: High (2) Pneumonia due to COVID-19 virus SNOMED Code(s): 610503706048387231 ICD Code: U07.1 - COVID-19; J12.82 - PNEUMONIA DUE TO CORONAVIRUS DISEASE 2019 Status: Acute Priority: High (3) Type II diabetes mellitus SNOMED Code(s): 88212609 ICD Code: E11.9 - TYPE 2 DIABETES MELLITUS WITHOUT COMPLICATIONS Status: Chronic Priority: Medium Qualifiers: Diabetes mellitus fpc insulin use: without terminal block assembler use Diabetes mellitus complication status: without complication Qualified Code(s): E11.9 - Type 2 diabetes mellitus without complications - Patient Summary/Data Consults: Consultations 11/15/20 17:21 OT Evaluation and Treatment [CONS] Routine PT Evaluation and Treatment [CONS] Routine 11/16/20 10:35 Consult to Respiratory Therapy [Respiratory Care Assess and Treatment] [CONS] Routine Hospital Course: Assessment:: 11/15/2020 #1. Covid pneumonia-patient is now starting to have hypoxia at 84% after 8 days of illness. The patient is continuing now with worsening symptoms of fever chills nausea vomiting malaise and fatigue. Found to have an elevated D-dimer. Hydration, left infiltrates, mild cardiac strain, and will be started on remdesivir, procalcitonin has been ordered and we will hold antibiotics at this time. We will continue with the dexamethasone that was ordered and started in the ER. We will continue with duo nebs, Mucinex, continuous pulse ox, RT therapy. #2. Diabetes-continue home dose metformin. Sliding scale insulin 3. GERD-continue famotidine 4. Gout-continue allopurinol 5. BPH-continue Proscar 6. Hard of hearing 7. History of hypertension-as needed hydralazine Time 80 minute Anticipate 2 midnight stay but less than 96 hours. 11/16/2020 This is a 75-year-old male admitted to the floor for COVID-19 pneumonia treatment. Patient remains weak with a cough and shortness of breath. WBC today is down to 1.77. Hemoglobin is 15.5. Platelets are low at 114,000 but this is improved over yesterday. D-dimer today was down to 0.38. Sodium 137. Potassium 4.0. Chloride 98. Carbon dioxide 29. Anion gap is 14.0. BUN is 24. Creatinine 1.1. GFR [place] 60. Blood glucose readings have been 10 9-1 57. Lactic acid is 1.7. Calcium is 8.4. Magnesium 2.0. Total bilirubin 0.7. AST 73, ALT 66, alkaline phosphatase 39. We'll continue to monitor these as patient is on remdesivir. CRP is up to 6.0. Albumin is 3.2. Patient remains on oxygen and is down to 1.5 L. He has been proning and utilizing his incentive spirometer. Unfortunately our facility is out of Acapella. He'll remain hospitalized. Unknown length of stay pending continued improvement. 11/17/2020 This is a 75-year-old male mated to the floor for hypoxia secondary to Covid. He remains on 1.5 L with saturations in the low 90s. Labs today show improvement in his WBC to 3.14. Hemoglobin is 14.2. Platelet improved to 139,000. Neutrophils are normal at 59.2. Sodium 138. Potassium 3.7. Carbon dioxide 27. Anion gap 13.7. BUN is 29. Creatinine 1.0. GFR greater than 60. Blood glucose readings have been 1 49-2 06. Calcium is 8.4. Total bilirubin 0.5. AST is 55, ALT 55, alkaline phosphatase is 40. CRP is down to 2.6. Albumin is down to 2.8. We will continue remdesivir and dexamethasone. Did discuss proning with the patient and he agreed to do this. He continues to utilize his incentive spirometer. We will recheck labs tomorrow morning including a D-dimer. Overall he is improving and his lung sounds are sounding better. Likely discharge after completion of treatment, which is a 5-day course. 11/18/2020 This is a 75-year-old male admitted to the floor for treatment of COVID-19 pneumonia. Overall he continues to do fairly well. He continues to have dyspnea with exertion and remains on 2 L of oxygen. He had been down to 1 L prior. He has been having some worsening back pain which is chronic and he states is exacerbated by of the hospital bed. We will add a warming pad today, as he states that has helped in the past. Labs today show a WBC of 3.47. Hemoglobin 14.2. Platelet 156,000. Neutrophils 155.6. D-dimer less than 0.19. Sodium 148. Potassium 3.7. Chloride 102. Carbon dioxide 28. Anion gap 11.7. BUN 25. Creatinine 0.9. GFR greater than 60. Glucose has been 1 38-47. Total bilirubin 0.5. AST is 50, ALT is 52, alkaline phosphatase 36. CRP is 1.0. Albumin is 2.9. Plan for discharge within 1 to 2 days, likely on home oxygen. 11/19/2020 He continues to improve. He is on 3 L nasal cannula currently and proning while I was in the room. AST has increased from 50 to 93 and ALT from 52-88. This is likely secondary to direct action of COVID and possibly remdesivir. We will continue to follow closely. Appetite remains good and eating on her percent of most meals. Patient will likely be able to discharge in the next 2 days. 11/20/2020 Ryan is now on 2 L nasal cannula and he is generally feeling better. He states he feels he is ready to go home. His appetite is good and he has no respiratory issues except for mild cough. Patient will be discharged home with dexamethasone for 2 days and Mucinex for 10. He will restart Glucophage when he gets home. He will need to follow-up with his primary care provider. - Plan Plan:: Hypoxia Pneumonia due to COVID-19 virus Neutropenia, improving * O2 as needed to keep saturations 88 to 95%. * I-S * RT consultation * Mucinex twice daily * Remdesivir day / * Dexamethasone 6 mg 6 days * Prone whenever possible * Ambulate around room * Continuous pulse oximetry * Telemetry * Airborne/contact isolation * Daily labs * Every 48-hour D-dimer * Will hold off IV antibiotics for now. * PT/OT evaluation Type II diabetes mellitus * Medium dose sliding scale insulin * 4 times daily AC at bedtime blood glucose checks * Diabetic diet * Discontinue Metformin while in hospital * Anticipate rise in blood sugars due to steroids [place] (hard of hearing) * No acute concerns * Ensure patient is able to hear when discussing treatment with him HTN (hypertension) * As needed hydralazine * Monitor vital signs GERD (gastroesophageal reflux disease) * Daily famotidine * No acute concerns BPH (benign prostatic hyperplasia) * Continue Proscar * No acute concerns Gout * Continue home allopurinol Back pain * Acute on chronic * Exacerbated by hospital bed * Warming pad PRN Code status: Full Code PCP: Dr. Peña with the [place] DVT prophylaxis: Lovenox Disposition: Patient will remain admitted to the floor for COVID-19 pneumonia treatment. Total length of stay 3 to 5 days pending response to treatment and ability to wean off oxygen. LOS greater than 96 hours due to continued need for treatment for COVID-19 pneumonia. - Patient Instructions Diet: Diabetic Diet Activity: As Tolerated Driving: Do Not Drive Showering/Bathing: May Shower Notify Provider of: Fever Other/Special Instructions: You are being sent home on 2 medications. 1 is dexamethasone, which can cause elevation in your blood sugars. We have been giving you insulin to treat your elevated blood sugars. I would like you to restart your Metformin and keep an eye on your blood sugars. If they stay above 250 you will need to contact your primary care provider. These should return to normal a few days after stopping dexamethasone. The second medication is Mucinex. You can get this [id number], but a prescription has been sent to your pharmacy. If you develop any worsening shortness of breath, oxygenation worsens, fever, or dizziness please return to the emergency department. - Discharge Plan *PRESCRIPTION DRUG MONITORING PROGRAM REVIEWED*: No *COPY OF PRESCRIPTION DRUG MONITORING REPORT IN PATIENT LIZZ: No Prescriptions/Med Rec: dexAMETHasone [Dexamethasone] 6 mg PO DAILY #2 tablet guaiFENesin [Mucinex] 600 mg PO BID #20 tab.er Home Medications: Home Meds Cholecalciferol (Vitamin D3) [Vitamin D3] 1,000 mg PO DAILY 12/28/17 [History] Fish Oil/[place]-3 Fatty Acids [Fish Oil 1,000 MG] 1,000 mg PO DAILY 12/28/17 [History] Ibuprofen [Motrin] 600 mg PO TID 12/28/17 [History] Multivitamin [Multivitamins] 1 tab PO DAILY 12/28/17 [History] Omeprazole Magnesium [Prilosec Otc] 20 mg PO DAILY 12/28/17 [History] Tamsulosin HCl 0.4 mg PO DAILY 12/28/17 [History] Allopurinol [Zyloprim] 150 mg PO DAILY 03/02/20 [History] Finasteride [Proscar] 5 mg PO DAILY 03/02/20 [History] amLODIPine [Norvasc] 5 mg PO DAILY 03/02/20 [History] Chondroitin/Glucosamine [Glucosamine-Chondroitin] 1 cap PO DAILY 11/16/20 [His tory] Propylene Glycol/PEG 400/Pf [Systane Hydration Pf 0.4-0.3%] 2 drop EYEBOTH ASDIRECTED PRN 11/16/20 [History] metFORMIN HCl [Metformin HCl] 500 mg PO BID 11/16/20 [History] dexAMETHasone [Dexamethasone] 6 mg PO DAILY #2 tablet 11/20/20 [Rx] guaiFENesin [Mucinex] 600 mg PO BID #20 tab.er 11/20/20 [Rx] Oxygen Therapy Mode: Nasal Cannula Oxygen Flow Rate (L/min): 2 Maintain SpO2% greater than: 88 Patient Handouts: COVID-19, COVID-19 Vaccine Information, 10 Things You Can Do to Manage Your COVID-19 Symptoms at Home - [facility] (08/26/2020), Sepsis, Diagnosis, Adult Referrals: PCP,None [Primary Care Provider] - (Please schedule a follow-up hospital stay appointment with your primary care provider on 11/20/2020.) - Discharge Summary/Plan Comment DC Time >30 min.: Yes Total # of Minutes for Discharge Time: 35 minutes for patient care, counseling, and paperwork - General Info Date of Service: 11/20/20 Admission Dx/Problem (Free Text: COVID-19 pneumonia Subjective Update: 35-year-old male with COVID-19 pneumonia on 2 L nasal cannula FiO2. Patient states he is feeling much better. Functional Status: Reports: Pain Controlled - Review of Systems General: Reports: No Symptoms HEENT: Reports: No Symptoms Pulmonary: Reports: No Symptoms Cardiovascular: Reports: No Symptoms Musculoskeletal: Reports: No Symptoms Neurological: Reports: No Symptoms Psychiatric: Reports: No Symptoms - Patient Data Vitals - Most Recent: Last Vital Signs Temp 97.7 F 11/20/20 08:25 Pulse 65 11/20/20 08:25 Resp 18 11/20/20 08:25 BP 123/84 11/20/20 08:27 Pulse Ox 92 L 11/20/20 09:24 Weight - Most Recent: 182 lb 4.8 oz I&O - Last 24 hours: Intake & Output 11/20/20 11/20/20 11/20/20 06:59 14:59 22:59 Intake Total 300 175 Balance 300 175 Lab Results - Last 24 hrs: Laboratory Results - last 24 hr 11/19/20 11/19/20 11/20/20 Range/Units 17:45 21:51 06:50 D-Dimer, Quantitative 0.32 (0.19-0.50) mg/L POC Glucose 252 H 210 H (70-99) mg/dL 11/20/20 11/20/20 Range/Units 06:58 11:09 D-Dimer, Quantitative (0.19-0.50) mg/L POC Glucose 130 H 220 H (70-99) mg/dL Med Orders - Current: Current Medications Acetaminophen (Acetaminophen 325 Mg Tab) 650 mg PO Q4H PRN PRN Reason: Pain (Mild 1-3)/fever Last Admin: 11/19/20 20:01 Dose: 650 mg Documented by: Al Hydroxide/Mg Hydroxide (Aluminum Hydroxide/Magnesium Hydroxide/Simethicone Susp 30 Ml Cup) 30 ml PO Q4H PRN PRN Reason: Heartburn Last Admin: 11/18/20 22:58 Dose: 30 ml Documented by: Albuterol (Albuterol 6.7 Gm Inhaler) 0 gm INH Q2H PRN PRN Reason: SOB/Wheezing Albuterol/Ipratropium (Albuterol/Ipratropium 3.0-0.5 Mg/3 Ml Neb Soln) 3 ml NEB QIDRT PRN PRN Reason: Shortness Of Breath/wheezing Allopurinol (Allopurinol 300 Mg Tab) 150 mg PO DAILY [facility] Last Admin: 11/20/20 08:27 Dose: 150 mg Documented by: Amlodipine Besylate (Amlodipine 5 Mg Tab) 5 mg PO DAILY [facility] Last Admin: 11/20/20 08:27 Dose: 5 mg Documented by: Cholecalciferol (Cholecalciferol (Vitamin D3) 25 Mcg Tab) 25 mcg PO DAILY [facility] Last Admin: 11/20/20 08:29 Dose: 25 mcg Documented by: Dexamethasone (Dexamethasone 4 Mg Tab) 6 mg PO DAILY [facility] Stop: 11/24/20 09:01 Last Admin: 11/20/20 08:30 Dose: 6 mg Documented by: Docusate Sodium (Docusate Sodium 100 Mg Cap) 100 mg PO Q12H PRN PRN Reason: Constipation Enoxaparin Sodium (Enoxaparin 40 Mg/0.4 Ml Syringe) 40 mg SUBCUT DAILY [facility] Last Admin: 11/20/20 08:30 Dose: 40 mg Documented by: Famotidine (Famotidine 20 Mg Tab) 20 mg PO DAILY [facility] Last Admin: 11/20/20 08:29 Dose: 20 mg Documented by: Finasteride (Finasteride 5 Mg Tab) 5 mg PO DAILY [facility] Last Admin: 11/20/20 08:29 Dose: 5 mg Documented by: Guaifenesin (Guaifenesin 600 Mg Tab.Er) 600 mg PO BID [facility] Last Admin: 11/20/20 08:29 Dose: 600 mg Documented by: Hydralazine HCl (Hydralazine 20 Mg/Ml Sdv) 10 mg IVPUSH Q4H PRN PRN Reason: Hypertension Insulin Human Lispro (Insulin Lispro 100 Unit/Ml 10 Ml Vial) 0 unit SUBCUT QIDACANDBED [facility]; Protocol Last Admin: 11/20/20 11:44 Dose: 4 unit Documented by: Ondansetron HCl (Ondansetron 4 Mg Tab.Dis) 4 mg PO Q4H PRN PRN Reason: nausea, able to take PO Sodium Chloride (Sodium Chloride 0.9% 10 Ml Syringe) 10 ml FLUSH ASDIRECTED PRN PRN Reason: Keep Vein Open Last Admin: 11/15/20 17:05 Dose: 10 ml Documented by: Tamsulosin HCl (Tamsulosin 0.4 Mg Cap.Er) 0.4 mg PO DAILY [facility] Last Admin: 11/20/20 08:27 Dose: 0.4 mg Documented by: Temazepam (Temazepam 7.5 Mg Cap) 7.5 mg PO BEDTIME PRN PRN Reason: Sleep Discontinued Medications Dexamethasone (Dexamethasone 4 Mg Tab) 6 mg PO ONETIME ONE Stop: 11/15/20 16:47 Last Admin: 11/15/20 17:06 Dose: 6 mg Documented by: Dexamethasone (Dexamethasone 10 Mg/Ml Sdv) 6 mg IVPUSH DAILY [facility] Stop: 11/25/20 09:01 Enoxaparin Sodium (Enoxaparin 40 Mg/0.4 Ml Syringe) 40 mg SUBCUT DAILY [facility] Heparin Sodium (Porcine) (Heparin Sodium 5,000 Units/Ml Vial) 7,500 units SUBCUT Q8H [facility] Last Admin: 11/18/20 08:36 Dose: 7,500 units Documented by: Remdesivir 200 mg/ Sodium (Chloride) 250 mls @ 250 mls/hr IV ONETIME ONE Stop: 11/15/20 17:18 Last Admin: 11/15/20 20:21 Dose: 250 mls/hr Documented by: Remdesivir 100 mg/ Sodium (Chloride) 100 mls @ 100 mls/hr IV Q24H [facility] Stop: 11/20/20 18:29 Remdesivir 200 mg/ Sodium (Chloride) 250 mls @ 250 mls/hr IV ONETIME ONE Stop: 11/15/20 21:59 Last Admin: 11/15/20 20:38 Dose: Not Given Documented by: Remdesivir 100 mg/ Sodium (Chloride) 100 mls @ 100 mls/hr IV Q24H [facility] Stop: 11/19/20 21:59 Last Admin: 11/19/20 20:01 Dose: 100 mls/hr Documented by: Ketorolac Tromethamine (Ketorolac 30 Mg/Ml Sdv) 30 mg IVPUSH ONETIME ONE Stop: 11/15/20 16:48 Last Admin: 11/15/20 17:06 Dose: 30 mg Documented by: Metformin HCl (Metformin 500 Mg Tab) 500 mg PO BID [facility] Last Admin: 11/16/20 08:52 Dose: 500 mg Documented by: - Exam Quality Assessment: Reports: Supplemental Oxygen General: Reports: Alert, Oriented HEENT: Reports: Pupils Equal, Mucous Membr. Moist/[place] Neck: Reports: Supple Lungs: Reports: Normal Respiratory Effort, Crackles (Minimal bibasilar) Cardiovascular: Reports: Regular Rate, Regular Rhythm GI/Abdominal Exam: Normal Bowel Sounds, Soft, Non-Tender, No Organomegaly, No Distention Extremities: Normal Inspection, Normal Range of Motion, Non-Tender, No Pedal Edema, Normal Capillary Refill Skin: Reports: Warm, Dry, Intact Neurological: Reports: No New Focal Deficit Psy/Mental Status: Reports: Alert, Normal Affect, Normal Mood
== END 2020-11-20 17:15 | disposition home or self-care (01) | DRG 177 ==
LOC: JD.ED 14:24 → UNDOADMIN 17:17 → JD.MS 17:17 → UNDOADMIN 17:34 → JD.MS 17:34
PROVIDERS: ADMIT Internal Medicine; ATTEND Internal Medicine
PROC: 8E0ZXY6 Isolation (ICD-10-PCS; principal; 2020-11-15)
PROC: XW033E5 Introduction of Remdesivir Anti-infective into Peripheral Vein, Percutaneous Approach, New Technology Group 5 (ICD-10-PCS; 2020-11-15)
PROC: 3E0DX3Z Introduction of Anti-inflammatory into Mouth and Pharynx, External Approach (ICD-10-PCS; 2020-11-15)
DX: U07.1 COVID-19 (principal); J12.82 Pneumonia due to coronavirus disease 2019; K21.9 Gastro-esophageal reflux disease without esophagitis; J30.9 Allergic rhinitis, unspecified; M10.9 Gout, unspecified; I10 Essential (primary) hypertension; N40.0 Benign prostatic hyperplasia without lower urinary tract symptoms; H91.90 Unspecified hearing loss, unspecified ear; D70.9 Neutropenia, unspecified; N42.9 Disorder of prostate, unspecified; M54.9 Dorsalgia, unspecified; G89.29 Other chronic pain; E11.9 Type 2 diabetes mellitus without complications; R09.02 Hypoxemia; Z79.899 Other long term (current) drug therapy; Z79.84 Long term (current) use of oral hypoglycemic drugs
CPT/HCPCS: 36415; 71045; 80053; 83880; 84145; 84484; 85025; 85379; 86140; 93005; 96374; 99285; J1885; J8540; 36600; 82803; 82947; 83605; 83735; 94762; 97161-GP; A9270-GY; J1644; J1650; J1815-GY; J7050

== ENCOUNTER 2022-12-13 14:31 | Emergency (ER) | payer MEDICARE, BC ==
[2022-12-13] MEDS ORDERED: Sodium Chloride 0.9% 10 ML Syringe FLUSH PRN (14:58)
[2022-12-13 15:23] LABS: BASOPHILS PERCENT AUTO 0.4 % (0.0-1.0); EOSINOPHILS PERCENT AUTO 0.4 % (0.0-6.0); HEMATOCRIT 42.7 % (42.0-52.0); HEMOGLOBIN 14.3 gm/dl (14.0-18.0); IMMATURE GRAN ABSOLUTE AUTO 0.05 K/mm3 (0.00-0.05); IMMATURE GRAN PERCENT AUTO 0.5 % (0.0-0.4); LYMPHOCYTES ABSOLUTE AUTO 1.7 K/mm3 (1.0-4.8); LYMPHOCYTES PERCENT AUTO 17.3 % (24.0-44.0); MEAN CORPUSCULAR HEMOGLOBIN 29.4 pg (28.0-32.0); MEAN CORPUSCULAR HGB CONC 33.5 g/dl (32.0-36.0); MEAN CORPUSCULAR VOLUME 87.9 fl (83.0-99.0); MEAN PLATELET VOLUME 8.9 fl (9.4-12.4); MONOCYTES ABSOLUTE AUTO 0.9 K/mm3 (0.0-0.8); MONOCYTES PERCENT AUTO 8.7 % (0.0-8.0); NEUTROPHILS ABSOLUTE AUTO 7.1 K/mm3 (1.8-7.7); NEUTROPHILS PERCENT AUTO 72.7 % (41.0-71.0); PLATELET COUNT,PLT 213 K/mm3 (150-400); RED BLOOD CELL COUNT 4.86 M/mm3 (4.52-5.90); WHITE BLOOD CELL COUNT,WBC 9.81 K/mm3 (3.9-11.3)
[2022-12-13 15:48] LABS: A/G RATIO 0.8 (1-2); ALBUMIN 3.3 g/dl (3.4-5.0); BILIRUBIN TOTAL 1.1 mg/dL (0.2-1.0); CALCIUM 9.4 mg/dL (8.5-10.1); EST CRCL DRUG DOSING (CG) 68.8 mL/min; PROTEIN TOTAL,TP 7.7 g/dl (6.4-8.2)
[2022-12-13 15:49] LABS: C-REACTIVE PROTEIN 15.4 mg/dL (<1.0)
[2022-12-13 15:50] LABS: LACTIC ACID 1.1 mmol/L (0.4-2.0)
[2022-12-13] MEDS ORDERED: Levofloxacin/Dextrose 5%-Water 750 MG in Premix Bag 1 BAG IV ONE (16:16)
[2022-12-13 16:43] LABS: APPEARANCE,URINE SLT CLOUDY (Clear); BILIRUBIN,URINE NEGATIVE (Negative); COLOR,URINE YELLOW (Yellow); GLUCOSE,URINE NEGATIVE (Negative); KETONES,URINE NEGATIVE (Negative); LEUKOCYTE ESTERASE,URINE 2+ (Negative); NITRITE,URINE POSITIVE (Negative); OCCULT BLOOD,URINE 2+ (Negative); PROTEIN,URINE 2+ (Negative); UROBILINOGEN,URINE 0.2 (0.2-1.0)
[2022-12-13 16:54] LABS: SQUAMOUS EPITHELIAL CELLS,UR 0-5 /hpf (0-5); WBC,URINE 50-75 /hpf (0-5)
[2022-12-13 16:55] LABS: BACTERIA,URINE FEW /hpf (FEW); MUCUS,URINE FEW /hpf (FEW)
== END 2022-12-13 16:10 | disposition home or self-care (01) ==
LOC: JD.ED 14:31
DX: N45.3 Epididymo-orchitis (principal); N39.0 Urinary tract infection, site not specified; I10 Essential (primary) hypertension; E11.9 Type 2 diabetes mellitus without complications; K21.9 Gastro-esophageal reflux disease without esophagitis; Z86.16 Personal history of COVID-19; Z79.899 Other long term (current) drug therapy; Z79.84 Long term (current) use of oral hypoglycemic drugs
CPT/HCPCS: 36415; 76870; 80053; 81001; 83605; 85025; 86140; 87086; 93975; 96365; 99284; J1956; J3490

== ENCOUNTER 2023-07-01 08:32 | Day surgery (SDC) | payer MEDICARE, BC ==
[~2023-07-01 08:32] MED LIST changes: -Lactated Ringers 1,000 ML IV SCH; -Lidocaine 1% 4 ML ONE; -Lidocaine 1%/Sod Bicarbonate in NS 8.4% 1 ML Syringe IDERM PRN; -Propofol 200 MG/20 ML SDV ONE; +Sodium Chloride 0.9% 10 ML Syringe FLUSH SCH
[2023-07-01] MEDS: VANCOmycin 1.25 GM/250 ML 1.25 GM in Premix Bag 1 BAG IV ONE (09:14)
[2023-07-01] MEDS: Lactated Ringers 1,000 ML IV SCH (09:14)
[2023-07-01] MEDS ORDERED: Ropivacaine 0.5% 5 MG/ML 30 ML SDV ONE (09:30)
[2023-07-01] MEDS ORDERED: EPINEPHrine 1 MG/ML SDV ONE (09:30)
[2023-07-01] MEDS ORDERED: Propofol 200 MG/20 ML SDV ONE (09:33)
[2023-07-01] MEDS ORDERED: Lidocaine 1% 5 ML VIAL ONE (09:33)
[2023-07-01] MEDS ORDERED: fentaNYL 100 MCG/2 ML SDV ONE (09:33)
[2023-07-01] MEDS ORDERED: Midazolam 1 MG/ML 2 ML SDV ONE (09:33)
[2023-07-01] MEDS ORDERED: Lactated Ringers 1,000 ML ONE ×2 (09:37→12:53)
[2023-07-01] MEDS ORDERED: Dexamethasone 4 MG/ML 5 ML MDV ONE (09:37)
[2023-07-01] MEDS ORDERED: ceFAZolin 2 GM Vial ONE (09:43)
[2023-07-01] MEDS ORDERED: ePHEDrine 50 MG/ML SDV ONE (11:21)
[2023-07-01] MEDS ORDERED: Ondansetron 4 MG/2 ML SDV ONE (11:43)
[2023-07-01] MEDS: Morphine 8 MG, EPINEPHrine 0.3 MG, Cefuroxime 750 MG, Ketorolac 30 MG, Sodium Chloride ... PRN (11:57)
[2023-07-01] MEDS ORDERED: HYDROmorphone 0.5 MG/0.5 ML Syringe IVPUSH PRN (11:59)
[2023-07-01] MEDS ORDERED: fentaNYL 100 MCG/2 ML SDV IVPUSH PRN (11:59)
[2023-07-01] MEDS ORDERED: Ondansetron 4 MG/2 ML SDV IVPUSH PRN (11:59)
[2023-07-01] MEDS: Tranexamic Acid 1,000 MG/10 ML Vial ONE (12:03)
[2023-07-01] MEDS: Vancomycin 1 GM SDV ONE (12:03)
[2023-07-01] MEDS ORDERED: Ketorolac 15 MG/ML SDV ONE (12:53)
[2023-07-01] MEDS: oxyCODONE 5 MG Tab PO PRN (14:53)
== END 2023-07-01 16:00 | disposition home or self-care (01) ==
LOC: JD.SDS 08:32
PROVIDERS: ATTEND Orthopaedic Surgery
DX: M17.11 Unilateral primary osteoarthritis, right knee (principal); K21.9 Gastro-esophageal reflux disease without esophagitis; I10 Essential (primary) hypertension; E03.9 Hypothyroidism, unspecified; E11.9 Type 2 diabetes mellitus without complications; N42.9 Disorder of prostate, unspecified; Z88.8 Allergy status to other drugs, medicaments and biological substances; Z91.018 Allergy to other foods; Z79.2 Long term (current) use of antibiotics; Z79.899 Other long term (current) drug therapy; Z79.84 Long term (current) use of oral hypoglycemic drugs; Z87.891 Personal history of nicotine dependence
CPT/HCPCS: 0055T; 27447; 64447; 73560; 82947; 97110; 97161; A9270; C1713; C1776; J0171; J0690; J0697; J1100; J1885; J2250; J2270; J2405; J2704; J2795; J3010; J3370; J7120; 01402; 99100; J3490

== ENCOUNTER 2024-01-21 16:52 | Emergency (ER) | payer MEDICARE, BC ==
[2024-01-21 19:01] LABS: BASOPHILS ABSOLUTE AUTO 0.1 K/mm3 (0.0-0.2); BASOPHILS PERCENT AUTO 0.3 % (0.0-1.0); EOSINOPHILS PERCENT AUTO 0.1 % (0.0-6.0); HEMATOCRIT 42.4 % (42.0-52.0); HEMOGLOBIN 14.4 gm/dl (14.0-18.0); IMMATURE GRAN ABSOLUTE AUTO 0.06 K/mm3 (0.00-0.05); IMMATURE GRAN PERCENT AUTO 0.3 % (0.0-0.4); LYMPHOCYTES ABSOLUTE AUTO 1.8 K/mm3 (1.0-4.8); LYMPHOCYTES PERCENT AUTO 10.1 % (24.0-44.0); MEAN CORPUSCULAR HEMOGLOBIN 29.8 pg (28.0-32.0); MEAN CORPUSCULAR VOLUME 87.6 fl (83.0-99.0); MEAN PLATELET VOLUME 9.7 fl (9.4-12.4); MONOCYTES ABSOLUTE AUTO 1.1 K/mm3 (0.0-0.8); MONOCYTES PERCENT AUTO 6.4 % (0.0-8.0); NEUTROPHILS ABSOLUTE AUTO 14.7 K/mm3 (1.8-7.7); NEUTROPHILS PERCENT AUTO 82.8 % (41.0-71.0); PLATELET COUNT,PLT 191 K/mm3 (150-400); RED BLOOD CELL COUNT 4.84 M/mm3 (4.52-5.90); WHITE BLOOD CELL COUNT,WBC 17.71 K/mm3 (3.9-11.3)
[2024-01-21 19:02] LABS: APPEARANCE,URINE CLOUDY (Clear); BILIRUBIN,URINE NEGATIVE (Negative); COLOR,URINE DARK YELLOW (Yellow); GLUCOSE,URINE NEGATIVE (Negative); KETONES,URINE NEGATIVE (Negative); LEUKOCYTE ESTERASE,URINE 2+ (Negative); NITRITE,URINE NEGATIVE (Negative); OCCULT BLOOD,URINE 2+ (Negative); PROTEIN,URINE 3+ (Negative); UROBILINOGEN,URINE 0.2 (0.2-1.0)
[2024-01-21 19:23] LABS: A/G RATIO 0.9 (1-2); ALBUMIN 3.5 g/dl (3.4-5.0); ANION GAP 13.4 (5-15); BILIRUBIN TOTAL 1.8 mg/dL (0.2-1.0); BUN/CREATININE RATIO 22.5 (14-18); CALCIUM 9.3 mg/dL (8.5-10.1); CREATININE 1.2 mg/dL (0.7-1.3); EST CRCL DRUG DOSING (CG) 54.79 mL/min; POTASSIUM,K 4.4 mEq/L (3.5-5.1); PROTEIN TOTAL,TP 7.6 g/dl (6.4-8.2)
[2024-01-21 19:23] LABS: BACTERIA,URINE MODERATE /hpf (FEW); RBC,URINE >100 /hpf (0-5); SQUAMOUS EPITHELIAL CELLS,UR 0-5 /hpf (0-5); WBC,URINE >100 /hpf (0-5)
[2024-01-21 19:24] LABS: MUCUS,URINE FEW /hpf (FEW)
[2024-01-21] MEDS: Sodium Chloride 0.9% 10 ML Syringe FLUSH PRN (20:34)
[2024-01-21] MEDS: Iopamidol 612 MG/ML 100 ML Bottle IVPUSH ONE (20:54)
[2024-01-21] MEDS: Amoxicillin/Clavulanate K 500-125 MG Tab PO ONE (21:57)
== END 2024-01-21 22:00 | disposition home or self-care (01) ==
LOC: JD.ED 16:52
DX: N30.01 Acute cystitis with hematuria (principal); I10 Essential (primary) hypertension; E11.9 Type 2 diabetes mellitus without complications; K21.9 Gastro-esophageal reflux disease without esophagitis; Z86.16 Personal history of COVID-19; Z79.899 Other long term (current) drug therapy; Z79.84 Long term (current) use of oral hypoglycemic drugs; Z88.8 Allergy status to other drugs, medicaments and biological substances
CPT/HCPCS: 36415; 74177; 80053; 81001; 85025; 87086; 99284; A9270; Q9967